=== PATIENT | female | born 1935 | race Caucasian/White ===

== ENCOUNTER 2022-02-08 08:54 | Outpatient (CLI) | payer MEDICARE, SELFPAY ==
--- NOTE | ~2022-02-08 | CT_ITS ---
EXAMINATION: CT chest abdomen pelvis w con DATE: 02/08/2022 14:15 CDT INDICATION: Lymphadenopathy. Bilateral axillary swelling. TECHNIQUE: Computed tomography (CT) of the chest, abdomen, and pelvis was performed with 100 cc Omnip aque 350 intravenous contrast. The dose-length product was 306.19 mGy-cm. Automated exposure control and iterative reconstruction technique were employed. COMPARISON: None FINDINGS: CHEST CT: There is bilateral supraclavicular lymphadenopathy. There is extensive bilateral axillary lymphadenop athy. There is mediastinal and right hilar lymphadenopathy. No significant pleural or pericardial eff usion. No focal airspace consolidation. Mild emphysema. No endobronchial lesions. No pneumothorax. Ca lcified granuloma is are present in the left upper lobe, consistent with chronic granulomatous diseas e. There is a 2 mm right middle lobe nodule, likely benign. No focal airspace consolidation. No endob ronchial lesions. ABDOMEN/PELVIS CT: There is hepatomegaly. There is a small low-density lesion in the left hepatic lobe measuring 12 mm, compatible with a cyst. There are smaller low-density lesions in the liver, also likely cysts. The sp mitra, pancreas, left adrenal gland is unremarkable. There is lymphadenopathy in the portal caval, per iaortic and mesenteric locations. There is extensive pelvic and inguinal. There is atherosclerosis of the aorta without aneurysm. There are gallstones. Moderate colonic fecal loading. There is a mild co mpression deformity of T4, likely chronic. Moderate lumbar spondylosis. No focal lytic or blastic les ions. Lymphadenopathy IMPRESSION: 1. Extensive lymphadenopathy of the neck, chest, abdomen and pelvis, suspicious for lymphoma. 2: Hepatomegaly. 3: Cholelithiasis. Reviewed, dictated and finalized at location A.
== END 2022-02-08 08:55 | disposition home or self-care (01) ==
PROVIDERS: PCP Physician Assistant Medical; Visit Provider Physician Assistant Medical
DX: R59.0 Localized enlarged lymph nodes (principal); K80.20 Calculus of gallbladder without cholecystitis without obstruction; R16.0 Hepatomegaly, not elsewhere classified
CPT/HCPCS: 71260; 74177; Q9967

== ENCOUNTER 2022-02-19 09:30 | Outpatient (CLI) | payer MEDICARE, SELFPAY | END 2022-02-19 09:31 | disposition home or self-care (01) | LOC: ANHLAB 09:32 | PROVIDERS: PCP Physician Assistant Medical; Visit Provider Internal Medicine Hematology & Oncology | DX: C85.98 Non-Hodgkin lymphoma, unspecified, lymph nodes of multiple sites (principal) | CPT/HCPCS: 88184; 88185 ==

== ENCOUNTER 2022-03-07 12:46 | Outpatient (CLI) | payer MEDICARE, SELFPAY | END 2022-03-07 12:47 | disposition home or self-care (01) | LOC: ANHLAB 12:47 | PROVIDERS: PCP Physician Assistant Medical; Visit Provider Internal Medicine Hematology & Oncology | DX: C83.00 Small cell B-cell lymphoma, unspecified site (principal); Z13.79 Encounter for other screening for genetic and chromosomal anomalies | CPT/HCPCS: 88184 ==

== ENCOUNTER 2022-03-28 08:45 | Outpatient (CLI) | payer MEDICARE, SELFPAY ==
[2022-03-28 08:55] LABS: Basophils Absolute Auto 0.1 K/mm3 (0.0-0.1); Basophils Percent Auto 0.9 % (0.2-1.2); Eosinophils Absolute Auto 0.2 K/mm3 (0-0.3); Eosinophils Percent Auto 2.5 % (0-4.4); Hematocrit 42.8 % (37.0-47.0); Hemoglobin 13.9 g/dL (12.0-15.0); Immature Granulocyte Absolute 0.02 K/mm3 (0.00-0.031); Immature Granulocyte Percent A 0.2 % (0-0.5); Lymphocytes Absolute Auto 4.92 K/mm3 (0.9-3.2); Lymphocytes Percent Auto 54.9 % (18.3-44.2); Mean Corpuscular HGB Conc 32.5 g/dl (32-36); Mean Corpuscular Hemoglobin 32.3 pg (26-34); Mean Corpuscular Volume 99.3 fl (80-100); Mean Platelet Volume 9.2 fl (7.4-10.4); Monocytes Absolute Auto 0.4 K/mm3 (0.1-0.6); Monocytes Percent Auto 4.1 % (2.6-8.5); Neutrophils Absolute Auto 3.4 K/mm3 (1.3-6.7); Neutrophils Percent Auto 37.4 % (45.5-73.1); Platelet Count Result 274 k/mm3 (150-375); Red Blood Count 4.31 M/mm3 (4.2-5.4); Red Cell Distribution Width 15.2 % (11.5-14.5)
[2022-03-28 08:58] LABS: Blood Urea Nitrogen 16 mg/dL (8-26); Carbon Dioxide 31 mmol/L (22-30); Chloride 97 mmol/L (98-109); Estimated Glomerular Filt Rate 43; Glucose 145 mg/dL (70-105); Ionized Calcium (POC) 1.22 mmol/L (1.11-1.31); Potassium 3.7 mmol/L (3.5-4.9); Sodium 140 mmol/L (138-146)
[2022-03-28 08:59] LABS: Atypical Lymphocytes Present; Platelet Estimate Adequate (Adequate); Schistocytes None Seen (NORMAL)
== END 2022-03-28 08:46 | disposition home or self-care (01) ==
LOC: ANHLAB 08:46
PROVIDERS: PCP Physician Assistant Medical; Visit Provider Internal Medicine Hematology & Oncology
DX: C83.00 Small cell B-cell lymphoma, unspecified site (principal)
CPT/HCPCS: 36415; 80047; 85025

== ENCOUNTER 2022-04-25 08:26 | Outpatient (CLI) | payer MEDICARE, SELFPAY ==
[2022-04-25 08:55] LABS: Basophils Absolute Auto 0.1 K/mm3 (0.0-0.1); Basophils Percent Auto 1.1 % (0.2-1.2); Eosinophils Absolute Auto 0.2 K/mm3 (0-0.3); Eosinophils Percent Auto 1.9 % (0-4.4); Hematocrit 43.9 % (37.0-47.0); Hemoglobin 14.2 g/dL (12.0-15.0); Immature Granulocyte Absolute 0.12 K/mm3 (0.00-0.031); Immature Granulocyte Percent A 1.2 % (0-0.5); Lymphocytes Absolute Auto 2.08 K/mm3 (0.9-3.2); Lymphocytes Percent Auto 21.1 % (18.3-44.2); Mean Corpuscular HGB Conc 32.3 g/dl (32-36); Mean Corpuscular Hemoglobin 31.8 pg (26-34); Mean Corpuscular Volume 98.2 fl (80-100); Mean Platelet Volume 9.4 fl (7.4-10.4); Monocytes Absolute Auto 1.2 K/mm3 (0.1-0.6); Monocytes Percent Auto 11.7 % (2.6-8.5); Neutrophils Absolute Auto 6.2 K/mm3 (1.3-6.7); Platelet Count Result 392 k/mm3 (150-375); Red Blood Count 4.47 M/mm3 (4.2-5.4); Red Cell Distribution Width 15.3 % (11.5-14.5); White Blood Count 9.9 K/mm3 (4.5-10.0)
[2022-04-25 09:00] LABS: Blood Urea Nitrogen 20 mg/dL (8-26); Carbon Dioxide 34 mmol/L (22-30); Chloride 95 mmol/L (98-109); Estimated Glomerular Filt Rate 39; Glucose 119 mg/dL (70-105); Ionized Calcium (POC) 1.36 mmol/L (1.11-1.31); Potassium 3.8 mmol/L (3.5-4.9); Sodium 138 mmol/L (138-146)
[2022-04-25 11:26] LABS: Alanine Aminotransferase 15 U/L (6-35); Albumin Level 3.9 g/dL (3.5-5.1); Alkaline Phosphatase 60 U/L (38-126); Anion Gap 7 mmol/L (8-16); Aspartate Amino Transferase 21 U/L (14-36); Bilirubin,Total 0.4 mg/dL (0.2-1.3); Blood Urea Nitrogen 20 mg/dL (7-17); Calcium 9.9 mg/dL (8.4-10.2); Carbon Dioxide 34 mmol/L (22-30); Chloride 97 mmol/L (98-107); Estimated Glomerular Filt Rate 43; Glucose 114 mg/dL (65-110); Lactate Dehydrogenase 167 U/L (120-246); Potassium 3.8 mmol/L (3.4-5.0); Sodium 138 mmol/L (137-145)
== END 2022-04-25 08:27 | disposition home or self-care (01) ==
PROVIDERS: PCP Physician Assistant Medical; Visit Provider Internal Medicine Hematology & Oncology
DX: C85.98 Non-Hodgkin lymphoma, unspecified, lymph nodes of multiple sites (principal)
CPT/HCPCS: 36415; 80047; 80053; 83615; 85025

== ENCOUNTER 2022-05-30 14:55 | Outpatient (CLI) | payer MEDICARE, SELFPAY ==
[2022-05-30 15:06] LABS: Basophils Absolute Auto 0.1 K/mm3 (0.0-0.1); Basophils Percent Auto 0.8 % (0.2-1.2); Eosinophils Absolute Auto 0.2 K/mm3 (0-0.3); Eosinophils Percent Auto 1.6 % (0-4.4); Hematocrit 48.7 % (37.0-47.0); Hemoglobin 15.3 g/dL (12.0-15.0); Immature Granulocyte Absolute 0.14 K/mm3 (0.00-0.031); Immature Granulocyte Percent A 1.3 % (0-0.5); Lymphocytes Absolute Auto 2.82 K/mm3 (0.9-3.2); Lymphocytes Percent Auto 26.1 % (18.3-44.2); Mean Corpuscular HGB Conc 31.4 g/dl (32-36); Mean Corpuscular Volume 98.6 fl (80-100); Mean Platelet Volume 9.3 fl (7.4-10.4); Monocytes Absolute Auto 1.1 K/mm3 (0.1-0.6); Monocytes Percent Auto 9.9 % (2.6-8.5); Neutrophils Absolute Auto 6.5 K/mm3 (1.3-6.7); Neutrophils Percent Auto 60.3 % (45.5-73.1); Nucleated Red Blood Cells Absolute Auto 0.1 K/mm3 (0.0-0.012); Nucleated Red Blood Cells Perc 0.6 % (0.0-0.2); Platelet Count Result 404 k/mm3 (150-375); Red Blood Count 4.94 M/mm3 (4.2-5.4); Red Cell Distribution Width 16.9 % (11.5-14.5); White Blood Count 10.8 K/mm3 (4.5-10.0)
[2022-05-30 15:11] LABS: Blood Urea Nitrogen 28 mg/dL (8-26); Carbon Dioxide 36 mmol/L (22-30); Chloride 95 mmol/L (98-109); Estimated Glomerular Filt Rate 33; Glucose 89 mg/dL (70-105); Ionized Calcium (POC) 1.21 mmol/L (1.11-1.31); Potassium 4.7 mmol/L (3.5-4.9); Sodium 136 mmol/L (138-146)
== END 2022-05-30 14:56 | disposition home or self-care (01) ==
LOC: ANHLAB 14:56
PROVIDERS: PCP Physician Assistant Medical; Visit Provider Internal Medicine Hematology & Oncology
DX: C83.00 Small cell B-cell lymphoma, unspecified site (principal)
CPT/HCPCS: 36415; 80047; 85025

== ENCOUNTER 2022-05-30 15:30 | Inpatient (IN) | payer MEDICARE, SELFPAY ==
[2022-05-30] VITALS (15 sets, daily range): BP systolic 120–145; BP diastolic 64–90; PULSE 63–83; RESP 16–25; TEMP 36–36.9; O2SAT 87–97
--- NOTE | ~2022-05-30 | XR_ITS ---
XR chest 1V portable 05/31/2022 16:10 Indication: CHF. Dyspnea. Procedure: AP portable chest Comparison: 02/02/2022 Findings: Cardiomegaly with mild interstitial edema. There is left basilar atelectasis. Small pleural effusions. No pneumothorax. The lungs are hyperinflated which is consistent with, but not diagnostic of chronic obstructive pulmonary disease. Generalized osteopenia. No acute osseous abnormality. Impression: 1: Cardiomegaly with mild interstitial edema. 2: Small pleural effusions. 3: Left lower lobe atelectasis. Reviewed, dictated and finalized at location A. ER WORKER POWER UNIT OPERATOR Impression: 1: Cardiomegaly with mild interstitial edema. 2: Small pleural effusions. 3: Left lower lobe atelectasis.
--- NOTE | ~2022-05-30 | CT_ITS ---
EXAMINATION: CTA chest PE protocol DATE: 05/30/2022 16:51 INDICATION: Hypoxia. TECHNIQUE: Computed tomography angiography (CTA) of the chest was performed with 100 mL Omnipaque-350 intravenous contrast timed to evaluate the pulmonary arteries. Coronal maximum intensity projection 3D-reconstructions were created by the technologist. Automated exposure control and iterative reconst ruction technique were employed. The dose-length product was 183.20 mGy-cm. COMPARISON: Chest CT 02/08/2022 FINDINGS: There is mild emphysema. There is mild atelectasis bilaterally. A calcified left lung nodul e and calcified left hilar and mediastinal lymph nodes are consistent with old granulomatous disease. There are trace pleural effusions. The heart size is normal. There are calcifications of the coronar y arteries and aortic valve. No pericardial effusion. There is no pulmonary embolus. There is bilater al axillary lymphadenopathy. The largest right axillary node measures 4.1 x 1.8 cm, improved from 6.9 x 3.2 cm. There is bilateral supraclavicular lymphadenopathy. There is mediastinal lymphadenopathy. There is moderate thoracic spondylosis. There is a chronic compression fracture of T4. IMPRESSION: 1. No pulmonary embolus. 2. Chest lymphadenopathy with improvement from 02/08/2022, consistent with lymphoma. 3. Mild emphysema. Reviewed, dictated and finalized at location A. CART REPAIRER IMPRESSION: 1. No pulmonary embolus. 2. Chest lymphadenopathy with improvement from 02/08/2022, consistent with lymph paulina. 3. Mild emphysema.
--- NOTE | 2022-05-30 16:01 | ECG_ITS ---
Measurements Intervals [place] Rate: 63 P: 69 UT: 169 QRS: -20 QRSD: 78 T: 19 QT: 379 QTc: 388 Interpretive Statements SINUS RHYTHM LOW QRS VOLTAGE IN LIMB LEADS CANNOT RULE OUT SEPTAL INFARCT, AGE INDETERMINATE INFERIOR INFARCT, AGE INDETERMINATE ABNORMAL ECG NO PREVIOUS ECG AVAILABLE FOR COMPARISON Electronically Signed On 05-30-2022 19:18:13 SUPPLY CHAIN DIRECTOR by Johnnie Hughes D.O.
--- NOTE | 2022-05-30 16:02 | ED.SOB ---
HPI - SOB/Dyspnea General Chief Complaint: Shortness of Breath/Dyspnea Stated Complaint: dyspnea Time Seen by Provider: 05/30/22 15:55 History of Present Illness HPI Narrative: Patient is an 87-year-old female with a history of lymphoma presenting with hypoxia. Patient's daughter states that the patient has been increasingly fatigued lately and short of breath. She went into her oncologist's office for a checkup today and they checked her vitals and found her pulse ox to be 45% so they sent her to the ER. On arrival, patient is on nonrebreather with saturations in the upper 90s. Patient denies complaints. She denies chest pain, lightheadedness, cough, fevers, abdominal pain, vomiting, diarrhea, leg swelling. Related Data Home Medications Medication Instructions Recorded Confirmed visiclear 1 tab-cap BYMOUTH DAILY 02/02/22 05/30/22 zanubrutinib 80 mg capsule 160 mg PO BID 05/30/22 05/30/22 (Brukinsa) Allergies Allergy/AdvReac Type Severity Reaction Status Date / Time No Known Allergies Allergy Verified 05/30/22 18:52 Review of Systems Review of Systems: All systems reviewed & are unremarkable except as noted in HPI and below PMFSH Past Medical History Medical History Macular degeneration Non-Hodgkin's lymphoma Trisomy 12 Surgical History Surgical History H/O tubal ligation History of appendectomy S/P ORIF (open reduction internal fixation) fracture left wrist Family History Family History Mother Carcinoma of colon Father Cancer Sibling Cancer Social History Social History Social History: She is and has 4 children. jorge schroeder is her daughter who has the durable power deputy attorney general for healthcare. 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 She occasionally has a glass a wine. Code status full code Smoking status: Never smoker Tobacco type: cigarettes Alcohol intake: never Alcohol use details: social - special event Substance use: never Lack of Transportation: No Lack of Food: Never True Current Housing: I Have Housing Concerned About Future Housing: No Difficulty Paying Gas/Electric Bills: No Difficulty Paying for Meds: No Currently Unemployed: No Education: Trade/Vocational Certificate Difficulty w/ Childcare or Family Care: No Living arrangements: alone Occupation/Education: retired Gender identity (if verbalized by the patient): Female Spiritual care concerns: No Exam Narrative: GENERAL: Well-appearing, well-nourished, and in no acute distress. HEAD: Normocephalic, atraumatic. EYES: PERRLA and EOMI. ENT: Nares clear, no rhinorrhea or epistaxis. Mucous membranes moist. NECK: Supple. CHEST: Diminished breath sounds bilaterally, no crackles or wheezing HEART: Regular rate and rhythm. No murmur heard. Normal peripheral pulses. ABDOMEN: Soft, nontender, nondistended, normal active bowel sounds. EXTREMITIES: Normal range of motion. No edema. SKIN: Warm, dry, no rash. NEURO: No focal deficits. Alert and oriented x3. PSYCH: Normal mood and affect. Course Vital Signs Vital signs: Vital Signs Temperature 97.2 F L 05/30/22 15:54 Pulse Rate 66 05/30/22 15:54 Respiratory Rate 16 05/30/22 15:54 Blood Pressure 138/90 05/30/22 15:54 Oxygen Delivery Room Air 05/30/22 15:54 Temperature 98.0 F 05/31/22 21:17 Pulse Rate 75 05/31/22 21:17 Respiratory Rate 17 05/31/22 21:17 Blood Pressure 105/46 L 05/31/22 21:17 Pulse Oximetry 92 05/31/22 21:17 Oxygen Delivery Nasal Cannula 05/31/22 19:48 Oxygen Flow Rate 6 05/31/22 19:48 MDM - SOB/Dyspnea MDM Narrative Medical decision making narrative: Patient is a
[2022-05-30 16:17] LABS: Alveolar/Arterial O2 Gradient 36.1 mmHg; Base Excess ABG 5.8 mEq/l (+/-2.0); Carboxyhemoglobin 3.7 % THb (0-2.0); Fractional Inspired Oxygen 21 %; HCO3 ABG 33.8 mEq/l (22.0-26.0); Methemoglobin ABG 0.5 %THb (0-1.5); Oxygen Content ABG 14.6 %vol (16.0-22.0); PO2 FiO2 Ratio Arterial Blood 1.83 %; Total Hemoglobin 15.8 g/dL (12.0-18.0); pH ABG 7.349 (7.350-7.450)
[2022-05-30 16:20] LABS: Basophils Absolute Auto 0.1 K/mm3 (0.0-0.1); Basophils Percent Auto 0.9 % (0.2-1.2); Eosinophils Absolute Auto 0.1 K/mm3 (0-0.3); Eosinophils Percent Auto 1.2 % (0-4.4); Hematocrit 48.4 % (37.0-47.0); Hemoglobin 15.2 g/dL (12.0-15.0); Immature Granulocyte Absolute 0.14 K/mm3 (0.00-0.031); Immature Granulocyte Percent A 1.2 % (0-0.5); Lymphocytes Absolute Auto 2.61 K/mm3 (0.9-3.2); Lymphocytes Percent Auto 22.8 % (18.3-44.2); Mean Corpuscular HGB Conc 31.4 g/dl (32-36); Mean Corpuscular Hemoglobin 31.3 pg (26-34); Mean Corpuscular Volume 99.8 fl (80-100); Mean Platelet Volume 9.4 fl (7.4-10.4); Monocytes Absolute Auto 1.1 K/mm3 (0.1-0.6); Monocytes Percent Auto 9.4 % (2.6-8.5); Neutrophils Absolute Auto 7.4 K/mm3 (1.3-6.7); Neutrophils Percent Auto 64.5 % (45.5-73.1); Nucleated Red Blood Cells Absolute Auto 0.1 K/mm3 (0.0-0.012); Nucleated Red Blood Cells Perc 0.6 % (0.0-0.2); Platelet Count Result 408 k/mm3 (150-375); Red Blood Count 4.85 M/mm3 (4.2-5.4); Red Cell Distribution Width 17.3 % (11.5-14.5); White Blood Count 11.4 K/mm3 (4.5-10.0)
[2022-05-30 16:21] LABS: PCO2 ABG 62.8 mmHg (35.0-45.0)
[2022-05-30 16:22] LABS: PO2 ABG 38.4 mmHg (80.0-100.0)
[2022-05-30 16:23] LABS: Oxygen Saturation ABG 68.4 % (95.0-100.0)
[2022-05-30 16:24] LABS: Oxyhemoglobin 65.8 % THb (90.0-100.0); Site Drawn LEFT BRACHIAL
[2022-05-30 16:25] LABS: Device ROOM AIR
[2022-05-30 16:30] LABS: Alanine Aminotransferase 20 U/L (6-35); Albumin Level 3.8 g/dL (3.5-5.1); Alkaline Phosphatase 79 U/L (38-126); Anion Gap 2 mmol/L (8-16); Aspartate Amino Transferase 29 U/L (14-36); Bilirubin,Total 0.5 mg/dL (0.2-1.3); Blood Urea Nitrogen 28 mg/dL (7-17); Calcium 9.5 mg/dL (8.4-10.2); Carbon Dioxide 37 mmol/L (22-30); Chloride 93 mmol/L (98-107); Estimated CRCL calculation 24 ml/min; Estimated Glomerular Filt Rate 43; Glucose 96 mg/dL (65-110); Potassium 4.7 mmol/L (3.4-5.0); Sodium 132 mmol/L (137-145)
[2022-05-30 16:48] LABS: Lactic Acid Reflex 1.1 mmol/L (0.7-2.0)
[2022-05-30 16:50] LABS: Prothrombin Time 12.6 Seconds (11.1-14.7)
[2022-05-30 16:51] LABS: Partial Thromboplastin Time 30.5 SECONDS (22.3-36.8)
[2022-05-30] MEDS: SODIUM CHLORIDE 0.9% IV 1,000 ML 999 ML IV CONT (16:57)
[2022-05-30 17:02] LABS: NT Pro B Type Natriuretic Pept 4280 pg/mL (19.9-100); Troponin I 0.013 ng/mL (0.000-0.034)
[2022-05-30 17:08] LABS: Influenza A QL RT-PCR Negative (Negative); Influenza B QL RT-PCR Negative (Negative); RSV RNA, RT-PCR Negative (Negative); SARS-CoV-2 RNA PCR Negative
[2022-05-30] MEDS: IPRATROPIUM BR 0.02% INH SOLN 0.5 MG/2.5 ML VIAL INHALATION ×2 (17:31→20:27)
[2022-05-30] MEDS: ALBUTEROL SULFATE NEB 2.5 MG/3 ML INH 5 MG INHALATION ×2 (17:31→20:27)
--- NOTE | 2022-05-30 17:55 | PM.IMHP ---
H&P: HPI History of Present Illness Date/Time: 05/30/22 17:55 Chief Complaint: Hypoxic Narrative: This is an 87-year-old female patient who has a history of lymphoma. She is seeing Dr. hammonds for non-Hodgkin's lymphoma of lymph nodes of multiple regions. The patient is being treated with oral medications. The patient was at her provider's office today and her O2 saturations were very low around 45%. However the patient was not cyanotic and was not in any distress. Patient was awake and talking. The patient does not wear home oxygen. The patient's white count was 11.4. H&H is 15.2 and 48.4. ABGs pH 7.349 CO2 was 62.8 PO2 38.4. O2 saturation was read as 68.4. Sodium 132. Creatinine 1.2 which is improved from her last level of 1.5. BNP 4280. Patient was negative for influenza a B RSV and COVID. Chest CTA was read as no pulmonary embolus. Chest lymphadenopathy with improvement from 02/08/2022 consistent with lymphoma. Mild emphysema. The patient was placed on oxygen in the emergency room and given neb treatments and IV fluids. Patient is being admitted to observation status on the date of service 05/30/2022 Review of Systems Review of Systems: See HPI All systems reviewed & are unremarkable except as noted in HPI and below Constitutional: Constitutional: Reports as per HPI and Reports no additional constitutional complaints Eyes: Eyes: Reports as per HPI and Reports no additional eye complaints ENT: Reports system reviewed and no additional complaints, except as documented and Reports Normal hearing present Cardiovascular: Cardiovascular: Reports no additional cardiovascular complaints Respiratory: Respiratory: Reports no additional respiratory complaints and Reports no additional respiratory complaints Gastrointestinal: Gastrointestinal: Reports as per HPI and Reports no additional gastrointestinal complaints Musculoskeletal: Musculoskeletal: Reports no additional musculoskeletal complaints Integumentary/Breasts: Skin/Breast: Reports system reviewed and no additional complaints, except as docu and Reports as per HPI Neurologic: Reports system reviewed and no additional complaints, except as documented, Reports as per HPI and Reports Normal hearing present Psychiatric: Psychiatric: Reports no additional psychiatric complaints and Reports as per HPI Endocrine: Endocrine: Reports no additional endocrine complaints Hematologic/Lymphatic: Hematologic/Lymphatic: Reports no additional hematologic/lymphatic complaints Allergic/Immunologic: Allergic/Immunologic: Reports no additional allergic/immunologic complaints [facility] Past Medical History Medical History (Updated 05/30/22 @ 20:16 by Henna Sanches NP) Macular degeneration Non-Hodgkin's lymphoma Trisomy 12 Surgical History Surgical History (Updated 05/30/22 @ 17:58 by Henna Sanches NP) H/O tubal ligation History of appendectomy S/P ORIF (open reduction internal fixation) fracture left wrist Family History Family History (Updated 05/30/22 @ 17:59 by Henna Sanches NP) Mother Carcinoma of colon Father Cancer Sibling Cancer Social History Social History (Updated 05/30/22 @ 20:18 by Henna Sanches NP) Social History: She is and has 4 children. jorge schroeder is her daughter who has the durable power director of institutional giving for healthcare. 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 She occasionally has a glass a wine. Code status full code Smoking status: Never smoker Tobacco type: cigarettes Alcohol intake: never Alcohol use details: social - special event Substance use: never Lack of Transportation: No Lack of Food: Never True Current Housing: I Have Housing Concerned About Future Housing: No Difficulty Paying Gas/Electric Bills: No Difficulty Paying for Meds: No Currently Unemployed: No Education: Trade/Vocational Certificate Diffi
--- NOTE | 2022-05-30 18:33 | ADMGEN ---
This patient, Cindy Estrada, was admitted to Medical Room 247-. Patient/family oriented to hospital policies and general routines including ID bracelet, bed and alarms, visiting hours, pain management, procedures, bathroom and other care routines, personal items, smoking policy, room service/diet, and visiting hours. Information on how to activate the Rapid Response Team has been discussed. Patient/Family are encouraged to report perceived risks to care and to ask questions if they do not understand what they are told or what they should do.
[2022-05-30 20:05] LABS: Troponin I < 0.012 ng/mL (0.000-0.034)
--- NOTE | 2022-05-30 21:06 | PHAR ---
DRUG NAME: FREDDIE INGREDIENTS: ZANUBRUTINIB -- 80 MG RELATED DOCUMENTS: DRUGDEX EVALUATIONS - ZANUBRUTINIB COLOR: WHITE SHAPE: CAPSULE-SHAPE IMPRINT: ZANU 80 FORM: ORAL CAPSULE
[2022-05-30] MEDS: FUROSEMIDE INJ 40 MG/4 ML VIAL 20 MG IV PUSH (22:14)
[2022-05-30 22:21] LABS: Troponin I < 0.012 ng/mL (0.000-0.034)
[2022-05-30] MEDS: methylPREDNISolone SOD SUCC 125 MG VIAL 60 MG IV PUSH (23:31)
[2022-05-31] VITALS (18 sets, daily range): BP systolic 100–110; BP diastolic 46–58; PULSE 63–82; RESP 17–20; TEMP 36–37; O2SAT 90–94
--- NOTE | 2022-05-31 | ECHO_ITS ---
Patient Info Name: Cindy Estrada Age: 87 years : 1935 Gender: Female Ht: 62 in Wt: 141 lbs BSA: 1.69 m2 HR: 83 bpm BP: 100 / 58 mmHg Technical Quality: Good Exam Date: 05/31/2022 10:12 AM Exam Location: [facility] Pulmonary Patient Status: Inpatient Admit Date: 05/30/2022 Staff Ordering Physician: Henna Sanches NP Buttermilk Drier Operator: [facility], ZAINAB, RT Attending Provider: Milad Godoy MD Referring Physician: Verónica ALVARADO; Exam Type: CA echo doppler color flow Study Info Indications R60.0 - Localized edema Complete two-dimensional, color flow and Doppler transthoracic echocardiogram is performed. Summary 1. Complete two-dimensional, color flow and Doppler transthoracic echocardiogram is performed. 2. Left ventricular chamber dimension is normal. 3. Left ventricular systolic function is normal, estimated at 65-70%. 4. The left ventricular diastolic function is grade I diastolic dysfunction. 5. E/e' 12 is mildly elevated. 6. Global longitudinal strain is normal at -22.3%. 7. There is moderate aortic valve sclerosis. 8. There is mild aortic valve stenosis with a peak velocity of 203 cm/s, mean gradient of 8 mmHg, and aortic valve area of 2.0 cm2. 9. Dilated inferior vena cava with >50% collapse upon inspiration consistent with elevated right atrial pressure, 10 mmHg. Left Ventricle E/e' 12 is mildly elevated. Global longitudinal strain is normal at -22.3%. Left ventricular chamber dimension is normal. Left ventricular systolic function is normal, estimated at 65-70%. The left ventricular diastolic function is grade I diastolic dysfunction. Right Ventricle Right ventricular systolic function is normal and with normal TAPSE 2.5 cm. Right ventricular chamber dimension is normal. Left Atria Left atrial chamber dimension is normal. Right Atria Right atrial chamber dimension is normal. Aortic Valve The aortic valve is probable trileaflet. There is moderate aortic valve sclerosis. There is mild aortic valve stenosis with a peak velocity of 203 cm/s, mean gradient of 8 mmHg, and aortic valve area of 2.0 cm2. There is no aortic valve regurgitation. Pulmonic Valve There is no pulmonic regurgitation. Mitral Valve There is no mitral valve stenosis. There is no mitral valve regurgitation. Tricuspid Valve There is no tricuspid valve regurgitation. Pericardium/Pleural There is no pericardial effusion. Inferior Vena Cava Dilated inferior vena cava with >50% collapse upon inspiration consistent with elevated right atrial pressure, 10 mmHg. Aorta The aortic root size at the sinus of Valsalva is normal. Left Ventricular Outflow Tract Name Value Normal LVOT 2D LVOT Diameter 1.9 cm LVOT Doppler LVOT Peak Gradient 7 mmHg LVOT Mean Gradient 4 mmHg LVOT VTI 31 cm LVOT VTI/AV VTI Ratio 0.7 LVOT Stroke Volume 87 ml LVOT CO 6.3 l/min LVOT CI 3.7 l/min/m2
--- NOTE | 2022-05-31 01:25 | PC.NURSE ---
Pt with o2 sat 89% on 4L at 1930. Changed fingers, still low Increased to 5L Notified hospitalist Henna. Gave lasix 20 IVP, RT gave neb. Pt couldnt void on bedpan. Bladder scanner 244ml. Then up to BSC voided 300ml. HOB elevated No shortness of breath during this time 5L NC 93%
[2022-05-31] MEDS: ALBUTEROL SULFATE NEB 2.5 MG/3 ML INH INHALATION ×4 (02:11→19:48)
[2022-05-31] MEDS: IPRATROPIUM BR 0.02% INH SOLN 0.5 MG/2.5 ML VIAL INHALATION ×4 (02:11→19:48)
[2022-05-31 05:31] LABS: Basophils Absolute Auto 0.1 K/mm3 (0.0-0.1); Basophils Percent Auto 0.7 % (0.2-1.2); Eosinophils Percent Auto 0.3 % (0-4.4); Hematocrit 43.9 % (37.0-47.0); Hemoglobin 13.8 g/dL (12.0-15.0); Immature Granulocyte Absolute 0.14 K/mm3 (0.00-0.031); Immature Granulocyte Percent A 1.5 % (0-0.5); Lymphocytes Absolute Auto 0.75 K/mm3 (0.9-3.2); Lymphocytes Percent Auto 7.8 % (18.3-44.2); Mean Corpuscular HGB Conc 31.4 g/dl (32-36); Mean Corpuscular Hemoglobin 31.4 pg (26-34); Mean Corpuscular Volume 99.8 fl (80-100); Mean Platelet Volume 9.6 fl (7.4-10.4); Monocytes Absolute Auto 0.3 K/mm3 (0.1-0.6); Monocytes Percent Auto 2.9 % (2.6-8.5); Neutrophils Absolute Auto 8.4 K/mm3 (1.3-6.7); Neutrophils Percent Auto 86.8 % (45.5-73.1); Nucleated Red Blood Cells Perc 0.3 % (0.0-0.2); Platelet Count Result 343 k/mm3 (150-375); White Blood Count 9.6 K/mm3 (4.5-10.0)
[2022-05-31 05:51] LABS: Alanine Aminotransferase 21 U/L (6-35); Alkaline Phosphatase 70 U/L (38-126); Anion Gap 3 mmol/L (8-16); Aspartate Amino Transferase 29 U/L (14-36); Bilirubin,Total 0.4 mg/dL (0.2-1.3); Blood Urea Nitrogen 29 mg/dL (7-17); Carbon Dioxide 36 mmol/L (22-30); Chloride 97 mmol/L (98-107); Estimated CRCL calculation 24 ml/min; Estimated Glomerular Filt Rate 43; Glucose 129 mg/dL (65-110); Magnesium 1.9 mg/dL (1.6-2.3); Potassium 4.7 mmol/L (3.4-5.0); Sodium 136 mmol/L (137-145)
[2022-05-31] MEDS: methylPREDNISolone SOD SUCC 125 MG VIAL 60 MG IV PUSH ×3 (06:48→18:08)
[2022-05-31] MEDS: LEVOTHYROXINE SODIUM 100 MCG TABLET PO (06:48)
[2022-05-31 07:12] LABS: Free T4 Free Thyroxine Reflex 0.53 ng/dL (0.78-2.19)
[2022-05-31] MEDS: ENOXAPARIN 40 MG/0.4 ML SYRINGE SUB-Q (09:15)
--- NOTE | 2022-05-31 12:52 | PDONCCN ---
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 She came into the office yesterday with follow-up visit and was having some shortness of breath without any chest pain. Her order set was found to be in 50s in the office. She was sent to the ER. She denies any fevers and chills. She denies any history of COPD. She was not using any home oxygen. She denies any leg pain and swelling. CTA chest was done in the ER chest showed no evidence of pulmonary embolism. There was chest lymphadenopathy with improvement and mild emphysema. Review of Systems - Review of Systems All systems reviewed & are unremarkable except as noted in HPI and bel - Neurologic Reports system reviewed and no additional complaints, except as documented, Reports hearing normal [facility] Medical History: Medical History (Last Reviewed 05/30/22 @ 21:33 by Oly Ayala MD) Macular degeneration Non-Hodgkin's lymphoma Trisomy 12 Surgical History: Surgical History (Last Reviewed 05/30/22 @ 21:33 by Oly Ayala MD) H/O tubal ligation History of appendectomy S/P ORIF (open reduction internal fixation) fracture left wrist Family History: Family History (Last Reviewed 05/30/22 @ 21:33 by Oly Ayala MD) Mother Carcinoma of colon Father Cancer Sibling Cancer - Social History Social History: Social History (Last Reviewed 05/30/22 @ 21:33 by Oly Ayala MD) Gender Identity: Gender identity (if verbalized by the patient): Female Alcohol Use: Alcohol intake: never Alcohol use details: social - special event Substance Use: Substance use: never Others: Spiritual care concerns: No Living Arrangements: Living arrangements: alone Oppucation/Education: Occupation/Education: retired Smoking Status: Smoking status: Never smoker Tobacco type: cigarettes Social Determinants of Health: Has the Lack of Transportation Kept You From Medical Appointments or From Getting Medications?: No Within the Past 12 Months, Were You Worried Whether Your Food Would Run Out Before You Got Money to Buy More?: Never True What is Your Housing Situation Today?: I Have Housing Are You Worried That in the Next 2 Months, You May Not Have Your Own Housing to Live In?: No Do You Have Trouble Paying Your Heating Or Electricity Bill?: No Do You Have Trouble Paying For Medicines?: No Are You Currently Unemployed and Looking for Work?: No Highest Level of Education Completed: Trade/Vocational Certific Do You Have Trouble With Childcare or the Care of a Family Member?: No Exam - Vital Signs Vital Signs - 24 hr 05/30/22 15:54 05/30/22 16:26 05/30/22 16:26 Temperature 36.2 C L Pulse Rate 66 73 Respiratory Rate 16 Blood Pressure 138/90 Pulse Oximetry 97 Oxygen Delivery Room Air Nasal Cannula Oxygen Flow Rate 4 05/30/22 16:33 05/30/22 17:32 05/30/22 17:45 Temperature Pulse Rate 68 66 Respiratory Rate 18 19 Blood Pressure Pulse Oximetry 97 Oxygen Delivery Nasal Cannula Oxygen Flow Rate 4 05/30/22 16:17 05/30/22 16:31 05/30/22 17:45 Temperature Pulse Rate 63 66 68 Respiratory Rate 16 17 25 H Blood Pressure 127/80 128/66 145/66 H Pulse Oximetry 94 96 96 Oxygen Delivery Oxygen Flow Rate 05/30/22 18:57 05/30/22 19:29 05/30/22 19:47 Temperature 36.9 C 36.0 C L Pulse Rate 76 73 Respiratory Rate 22 H 20 Blood Pressure 131/64 120/68 Pulse Oximetry 91 87 L Oxygen Delivery Oxygen Flow Rate 05/30/22
--- NOTE | 2022-05-31 13:15 | PM.IMPN ---
Progress Note: A&P Assessment and Plan (1) Emphysema lung: Code(s): J43.9 - Emphysema, unspecified Status: Acute Assessment and Plan: -the patient was started on Solu-Medrol -continue with nebulizer treatments -continue with oxygen to keep O2 saturations greater than 92%. -the patient was negative for influenza A/B RSV and COVID. -home O2 evaluation. 05/31/2022 interval history: patient with history of non-Hodgkin lymphoma presented with hypoxia etiology uncertain we have started the patient on Solu-Medrol and bronchodilator, CT scan of the chest showed improvement in chest lymphadenopathy compared to previous CT scan on 02/08, also patient has hypothyroid this may be related, as her TSH increased, will increase levothyroxine to 125 mcg from 100 mcg, will consult casino cage supervisor for further recommendation. (2) Non-Hodgkin's lymphoma: Code(s): C85.90 - Non-Hodgkin lymphoma, unspecified, unspecified site Status: Acute Assessment and Plan: -consult Dr. Schulz. -continue with her home medications that are non formulary and the family has brought them here for her to take and she may take her own. Continue with per brukinsmony that the patient will bring from home (3) Macular degeneration: Code(s): H35.30 - Unspecified macular degeneration Status: Acute Assessment and Plan: -continue with her visit clear and she may take her home dose. (4) Hypothyroidism: Code(s): E03.9 - Hypothyroidism, unspecified Status: Acute Assessment and Plan: -check thyroid level. - Continue with levothyroxine Subjective Date/time seen: 05/31/22 13:15 Chief Complaint: Hypoxic HPI-Narrative: This is an 87-year-old female patient who has a history of lymphoma.? She is seeing Dr. 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 The patient is being treated with oral medications.? The patient was at her provider's office today and her O2 saturations were very low around 45%.? However the patient was not cyanotic and was not in any distress.? Patient was awake and talking.? The patient does not wear home oxygen.? The patient's white count was 11.4.? H&H is 15.2 and 48.4.? ABGs pH 7.349 CO2 was 62.8 PO2 38.4.? O2 saturation was read as? 68.4.? Sodium 132.? Creatinine 1.2 which is improved from her last level of 1.5.? BNP 4280.? Patient was negative for influenza a B RSV and COVID.? Chest CTA was read as no pulmonary embolus.? Chest lymphadenopathy with improvement from 02/08/2022 consistent with lymphoma.? Mild emphysema.? The patient was placed on oxygen in the emergency room and given neb treatments and IV fluids.? Patient is being admitted to observation status on the date of service 05/30/2022 05/31/2022 interval history: patient with history of non-Hodgkin lymphoma presented with hypoxia etiology uncertain we have started the patient on Solu-Medrol and bronchodilator, CT scan of the chest showed improvement in chest lymphadenopathy compared to previous CT scan on 02/08, also patient has hypothyroid this may be related, as her TSH increased, will increase levothyroxine to 125 mcg from 100 mcg, will consult casino cage supervisor for further recommendation. Review of Systems Review of Systems: All systems reviewed & are unremarkable except as noted in HPI and below Exam Narrative: Patient is comfortable, NAD HEENT: eyes are clear and none icteric LUNGS: bilateral fair air entry with harsh breath sound, rhonchi and wheezing ABD: not distended Lower extremities: no edema SKIN: nonjaundiced Neuro: grossly intact. Objective Data Vital Signs Vital Signs: Vital Signs - 24 hr 05/30/22 15:54 05/30/22 16:26 05/30/22 16:26 Temperature 97.2 F L Pulse Rate 66 73 Respiratory Rate 16 Blood Pressure 138/90 Pulse Oximetry 97 Oxygen Delivery Room Air Nasal Cannula Oxygen Flow Rate 4 05/30/22 16:33 05/30/22 17:32 05/30/22 17:45 Temperature Pulse Rate
[2022-05-31] MEDS: LEVOTHYROXINE SODIUM 25 MCG TABLET PO (13:49)
--- NOTE | 2022-05-31 15:09 | PM.CNPUL ---
Assessment and Plan Assessment and plan (1) Emphysema lung: Code(s): J43.9 - Emphysema, unspecified Status: Acute Assessment and Plan: this 87-year-old female with several week history of weakness was hospitalized because of hypoxemia. Diagnostic studies have shown chronic hypercapnic respiratory failure, erythrocytosis, prominent pulmonary arteries on chest CT, elevated BNP. She had no evidence of pulmonary embolism. chest CT showed mild emphysema. The patient's clinical history in conjunction with diagnostic studies suggest hypoxemia and hypercapnic respiratory failure related to COPD. Plan: continue with current regimen consisting of IV steroids nebulized short-acting bronchodilators, DVT prophylaxis. Await echo report. Repeat ABGs/CXR. (2) Hypothyroidism: Code(s): E03.9 - Hypothyroidism, unspecified Status: Acute (3) Monoclonal B-cell lymphocytosis of undetermined significance: Code(s): D72.820 - Lymphocytosis (symptomatic) Status: Acute (4) Macular degeneration: Code(s): H35.30 - Unspecified macular degeneration Status: Acute (5) Hypoxemia: Code(s): R09.02 - Hypoxemia Status: Acute History of Present Illness History of Present Illness Consult date: 05/31/22 Chief complaint: hypoxia Narrative: This 87-year-old female was admitted to the hospital because of hypoxemia. The patient was diagnosed with lymphoma several months ago. Since February she has been on treatment with zanubrutinib? and has been followed by Dr. Phelps. patient did not have any a new respiratory symptoms but her daughter noticed some a increasing weakness over the the last 2-3 weeks. Upon questioning the patient denied having chest pain palpitations orthopnea hemoptysis night sweats or lower extremity edema. She stated that she has been weak lately and also had some dizziness. She was found to have severe hypoxemia at her oncologist office. Workup showed chronic hypercapnic respiratory failure, partially compensated. A chest CT showed mild emphysema, no pulmonary embolism. The patient is currently on treatment with IV steroids nebulized short-acting bronchodilators. Her BNP was elevated over 4000. She received 1 dose of IV Lasix. Currently the patient has no shortness of breath. she never had history of asthma. Patient has been a smoker for many years. No other exposure to inhalational agents at home or at work place. Review of Systems Review of Systems: Patient reports no weight changes. She has no chest pain. She has no orthopnea. She has had history of hypothyroidism. During this hospitalization, TSH was very elevated and her thyroid hormone replacement was adjusted. Patient has had cold intolerance over the last few months. She also has constipation. She has no history lower extremity edema. The remainder of the 12 point system review is negative FORMERLY [facility], [facility] Past Medical History Medical History Macular degeneration Non-Hodgkin's lymphoma Trisomy 12 Surgical History Surgical History H/O tubal ligation History of appendectomy S/P ORIF (open reduction internal fixation) fracture left wrist Family History Family History Mother Carcinoma of colon Father Cancer Sibling Cancer Social History Social History Social History: She is and has 4 children. jorge schroeder is her daughter who has the durable power staff attorney for healthcare. 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 She occasionally has a glass a wine. Code status full code Smoking status: Never smoker Tobacco type: cigarettes Alcohol intake: never Alcohol use details: social - special event S
[2022-06-01] VITALS (20 sets, daily range): BP systolic 111–121; BP diastolic 53–59; PULSE 61–95; RESP 16–20; TEMP 36.6–36.9; O2SAT 91–95
[2022-06-01] MEDS: methylPREDNISolone SOD SUCC 125 MG VIAL 60 MG IV PUSH ×3 (00:13→17:22)
[2022-06-01] MEDS: ALBUTEROL SULFATE NEB 2.5 MG/3 ML INH INHALATION ×4 (02:48→21:12)
[2022-06-01] MEDS: IPRATROPIUM BR 0.02% INH SOLN 0.5 MG/2.5 ML VIAL INHALATION ×4 (02:48→21:12)
[2022-06-01 06:09] LABS: Hematocrit 40.6 % (37.0-47.0); Hemoglobin 12.7 g/dL (12.0-15.0); Mean Corpuscular HGB Conc 31.3 g/dl (32-36); Mean Corpuscular Hemoglobin 30.1 pg (26-34); Mean Corpuscular Volume 96.2 fl (80-100); Mean Platelet Volume 9.7 fl (7.4-10.4); Platelet Count Result 327 k/mm3 (150-375); Red Blood Count 4.22 M/mm3 (4.2-5.4); Red Cell Distribution Width 16.8 % (11.5-14.5); White Blood Count 10.5 K/mm3 (4.5-10.0)
[2022-06-01 06:30] LABS: Anion Gap 3 mmol/L (8-16); Blood Urea Nitrogen 26 mg/dL (7-17); Calcium 8.3 mg/dL (8.4-10.2); Carbon Dioxide 34 mmol/L (22-30); Chloride 96 mmol/L (98-107); Estimated CRCL calculation 32 ml/min; Estimated Glomerular Filt Rate 60; Glucose 139 mg/dL (65-110); Magnesium 2.1 mg/dL (1.6-2.3); Potassium 4.7 mmol/L (3.4-5.0); Sodium 133 mmol/L (137-145)
[2022-06-01] MEDS: LEVOTHYROXINE SODIUM 125 MCG TABLET PO (06:49)
[2022-06-01] MEDS: ENOXAPARIN 40 MG/0.4 ML SYRINGE SUB-Q (08:31)
--- NOTE | 2022-06-01 09:21 | PM.PNPUL ---
Progress Note: A&P Assessment and Plan (1) Emphysema lung: Code(s): J43.9 - Emphysema, unspecified Status: Acute Assessment and Plan: 87-year-old female admitted to the hospital with a hypoxemia and hypercapnic respiratory failure related to a newly detected COPD. Patient has evidence of mild emphysema on chest CT. she has been stable on a current regimen of IV steroids nebulized short-acting bronchodilators. On physical exam lungs sounded better this a.m.. She continues to require relatively high FiO2. Was given Lasix 20 mg IV. Plan: continue with current regimen, have decreased IV steroids, out of bed to chair. Await Echo report. Anticipate DC home in 1-2 days. (2) Hypoxia: Code(s): R09.02 - Hypoxemia Status: Acute (3) Non-Hodgkin's lymphoma: Code(s): C85.90 - Non-Hodgkin lymphoma, unspecified, unspecified site Status: Acute (4) Monoclonal B-cell lymphocytosis of undetermined significance: Code(s): D72.820 - Lymphocytosis (symptomatic) Status: Acute (5) Hypothyroidism: Code(s): E03.9 - Hypothyroidism, unspecified Status: Acute Subjective Date/time seen: 06/01/22 09:21 Interval history: Doing a little better today. She has no new respiratory symptoms. Remaining on relatively high oxygen flow, 6 liters/minute. Review of Systems Review of Systems: All systems reviewed & are unremarkable except as noted in HPI and below ( HPI and below) Exam Narrative: GENERAL APPEARANCE: Well developed, well nourished, alert and cooperative, and appears to be in no acute distress while on supplemental oxygen SKIN: Inspection of the skin reveals no rashes, ulcerations or petechiae. HEENT: Sclerae anicteric and conjunctivae pink and moist. Extraocular movements were intact and pupils were equal, round, and reactive to light. The oral mucosa, hard and soft palate, tongue and posterior pharynx were normal. NECK: Supple. There was no thyroid enlargement, and no tenderness, or masses were felt. CHEST: Normal AP diameter and normal contour without any kyphoscoliosis. LUNGS: Auscultation of the lungs a few rhonchi and crackles at bases posteriorly, no wheezing. CARDIAC: There was a regular rate and rhythm without any murmurs ABDOMEN: Soft and nontender with normal bowel sounds. There was no organomegaly. LYMPH NODES: No lymphadenopathy was appreciated in the neck. EXTREMITIES: No cyanosis, clubbing or edema. NEUROLOGIC: Alert and oriented x 3. Normal affect. Objective Data Vital Signs Vital Signs: Vital Signs - 24 hr 05/31/22 09:40 05/31/22 09:40 05/31/22 09:53 Temperature Pulse Rate 66 72 Respiratory Rate 18 18 Blood Pressure Pulse Oximetry 90 Oxygen Delivery Nasal Cannula Oxygen Flow Rate 6 05/31/22 12:00 05/31/22 14:31 05/31/22 14:47 Temperature Pulse Rate 77 76 81 Respiratory Rate 18 18 Blood Pressure Pulse Oximetry Oxygen Delivery Oxygen Flow Rate 05/31/22 15:10 05/31/22 16:00 05/31/22 19:48 Temperature 37.0 C Pulse Rate 78 77 73 Respiratory Rate 18 20 Blood Pressure 110/53 L Pulse Oximetry 94 93 Oxygen Delivery Nasal Cannula Oxygen Flow Rate 6 05/31/22 19:48 05/31/22 20:03 05/31/22 21:17 Temperature 36.7 C Pulse Rate 73 82 75 Respiratory Rate 20 20 17 Blood Pressure 105/46 L Pulse Oximetry 92 Oxygen Delivery Oxygen Flow Rate 05/31/22 20:00 05/31/22 20:00 06/01/22 00:00 Temperature Pulse Rate 80 71 Respiratory Rate Blood Pressure Pulse Oximetry 92 Oxygen Delivery Nasal Cannula Oxygen Flow Rate 06/01/22 02:49 06/01/22 02:49 06/01/22 02:59 Temperature Pulse Rate 70 70 68 Respiratory Rate 20 20 20 Blood Pressure Pulse Oximetry 91 Oxygen Delivery Nasal Cannula Oxygen Flow Rate 06/01/22 05:29 06/01/22 04:00 06/01/22 08:04 Temperature 36.9 C Pulse Rate 80 75 61 Respiratory Rate 18 Blood Pressure 112/53 L Pu
--- NOTE | 2022-06-01 10:16 | PCRCNOTE ---
HOME O2 EVAL DONE, 1 L AT REST AND 3 L WITH ACTIVITY, SET UP WITH [employer] PHONE NUMBER [phone].
[2022-06-01] MEDS: FUROSEMIDE INJ 40 MG/4 ML VIAL 20 MG IV PUSH (11:02)
--- NOTE | 2022-06-01 11:10 | PM.IMPN ---
Progress Note: A&P Assessment and Plan (1) Emphysema lung: Code(s): J43.9 - Emphysema, unspecified Status: Acute Assessment and Plan: -the patient was started on Solu-Medrol -continue with nebulizer treatments -continue with oxygen to keep O2 saturations greater than 92%. -the patient was negative for influenza A/B RSV and COVID. -home O2 evaluation. (2) Non-Hodgkin's lymphoma: Code(s): C85.90 - Non-Hodgkin lymphoma, unspecified, unspecified site Status: Acute Assessment and Plan: -consult Dr. Schulz. -continue with her home medications that are non formulary and the family has brought them here for her to take and she may take her own. Continue with per christopher that the patient will bring from home (3) Macular degeneration: Code(s): H35.30 - Unspecified macular degeneration Status: Acute Assessment and Plan: -continue with her visit clear and she may take her home dose. (4) Hypothyroidism: Code(s): E03.9 - Hypothyroidism, unspecified Status: Acute Assessment and Plan: -check thyroid level. - Continue with levothyroxine Subjective Date/time seen: 06/01/22 11:10 No new complaints Exam Narrative: Patient is comfortable, NAD HEENT: eyes are clear and none icteric LUNGS: bilateral fair air entry with harsh breath sound, rhonchi and wheezing ABD: not distended Lower extremities: no edema SKIN: nonjaundiced Neuro: grossly intact. Objective Data Vital Signs Vital Signs: Vital Signs - 24 hr 05/31/22 12:00 05/31/22 14:31 05/31/22 14:47 Temperature Pulse Rate 77 76 81 Respiratory Rate 18 18 Blood Pressure Pulse Oximetry Oxygen Delivery Oxygen Flow Rate 05/31/22 15:10 05/31/22 16:00 05/31/22 19:48 Temperature 98.6 F Pulse Rate 78 77 73 Respiratory Rate 18 20 Blood Pressure 110/53 L Pulse Oximetry 94 93 Oxygen Delivery Nasal Cannula Oxygen Flow Rate 6 05/31/22 19:48 05/31/22 20:03 05/31/22 21:17 Temperature 98.0 F Pulse Rate 73 82 75 Respiratory Rate 20 20 17 Blood Pressure 105/46 L Pulse Oximetry 92 Oxygen Delivery Oxygen Flow Rate 05/31/22 20:00 05/31/22 20:00 06/01/22 00:00 Temperature Pulse Rate 80 71 Respiratory Rate Blood Pressure Pulse Oximetry 92 Oxygen Delivery Nasal Cannula Oxygen Flow Rate 6 06/01/22 02:49 06/01/22 02:49 06/01/22 02:59 Temperature Pulse Rate 70 70 68 Respiratory Rate 20 20 20 Blood Pressure Pulse Oximetry 91 Oxygen Delivery Nasal Cannula Oxygen Flow Rate 6 06/01/22 05:29 06/01/22 04:00 06/01/22 08:04 Temperature 98.4 F Pulse Rate 80 75 61 Respiratory Rate 18 Blood Pressure 112/53 L Pulse Oximetry 94 91 Oxygen Delivery Nasal Cannula Oxygen Flow Rate 6 06/01/22 08:04 06/01/22 08:35 Temperature Pulse Rate 61 Respiratory Rate 20 Blood Pressure Pulse Oximetry 91 Oxygen Delivery Nasal Cannula Oxygen Flow Rate 6 Intake/Output Intake/Output: Intake & Output 05/29/22 05/30/22 05/31/22 06/01/22 23:59 23:59 23:59 23:59 Intake Total 1750 240 Output Total 400 1450 200 Balance -400 300 40 Meds/Results Medications: Active Medications Generic Name Dose Route Start Last Admin Trade Name Freq PRN Reason Stop Dose Admin Albuterol 2.5 mg 05/31/22 02:00 06/01/22 08:04 Albuterol Sulfate Neb 2.5 Mg/3 Ml Inh INHALATION 2.5 mg Q6HRT SHANICE Administration Enoxaparin Sodium 40 mg 05/31/22 09:00 06/01/22 08:31 Enoxaparin 40 Mg/0.4 Ml Syringe SUB-Q 40 mg DAILY SHANICE Administration Home Med 2 each 05/31/22 09:00 06/01/22 08:31 Zanubrutinib [Brukinsa] 80 Mg Capsule Home Medication PO 06/30/22 08:59 2 each BID SHANICE Administration Ipratropium [place] 0.5 mg 05/31/22 02:00 06/01/22 08:04 Ipratropium Br 0.02% Inh Soln 0.5 Mg/2.5 Ml Vial INHALATION 0.5 mg Q6HRT SHANICE Administration Levothyroxine Sodium 125 mcg 06/01/22 06:30
[2022-06-02] VITALS (12 sets, daily range): BP systolic 105; BP diastolic 59; PULSE 70–99; RESP 16–18; TEMP 36.9; O2SAT 82–95
[2022-06-02] MEDS: ALBUTEROL SULFATE NEB 2.5 MG/3 ML INH INHALATION ×2 (02:34→08:05)
[2022-06-02] MEDS: IPRATROPIUM BR 0.02% INH SOLN 0.5 MG/2.5 ML VIAL INHALATION ×2 (02:34→08:05)
[2022-06-02 05:16] LABS: Hematocrit 40.6 % (37.0-47.0); Hemoglobin 12.9 g/dL (12.0-15.0); Mean Corpuscular HGB Conc 31.8 g/dl (32-36); Mean Corpuscular Hemoglobin 30.9 pg (26-34); Mean Corpuscular Volume 97.1 fl (80-100); Mean Platelet Volume 9.7 fl (7.4-10.4); Platelet Count Result 323 k/mm3 (150-375); Red Blood Count 4.18 M/mm3 (4.2-5.4); Red Cell Distribution Width 16.8 % (11.5-14.5); White Blood Count 14.6 K/mm3 (4.5-10.0)
[2022-06-02 05:34] LABS: Anion Gap 1 mmol/L (8-16); Blood Urea Nitrogen 32 mg/dL (7-17); Calcium 8.1 mg/dL (8.4-10.2); Carbon Dioxide 36 mmol/L (22-30); Chloride 91 mmol/L (98-107); Estimated CRCL calculation 29 ml/min; Estimated Glomerular Filt Rate 53; Glucose 112 mg/dL (65-110); Magnesium 2.2 mg/dL (1.6-2.3); Potassium 4.6 mmol/L (3.4-5.0); Sodium 128 mmol/L (137-145)
[2022-06-02] MEDS: LEVOTHYROXINE SODIUM 125 MCG TABLET PO (06:14)
[2022-06-02] MEDS: methylPREDNISolone SOD SUCC 125 MG VIAL 60 MG IV PUSH (06:15)
[2022-06-02] MEDS: ENOXAPARIN 40 MG/0.4 ML SYRINGE SUB-Q (08:44)
--- NOTE | 2022-06-02 10:33 | HOMEO2EVAL ---
Evaluation was performed at [facility] Home Oxygen Evaluation RC: Home Oxygen (O2) Evaluation Start: 06/02/22 10:03 Freq: ONCE Status: Active Protocol: RPE Activity Type Activity Date Activity User E-sign Co-sign Detail Recorded Client Recorded Date Recorded By Document 06/02/22 10:18 CLC [email or web address] 06/02/22 10:33 CLC Document 06/02/22 10:20 CLC [email or web address] 06/02/22 10:33 CLC Document 06/02/22 10:32 CLC [email or web address] 06/02/22 10:33 CLC 06/02/22 06/02/22 06/02/22 10:18 10:20 10:32 Home O2 Evaluation [Oxygen] -Test Phase Resting Resting Exercise -Oxygen Delivery Room Air Nasal Cannula Nasal Cannula -Oxygen Flow Rate (L/min) 3 3 [Pulse Oximetry] -Pulse Oximetry (90-100 %) 92 92 89 L [Pulse Rate] -Pulse Rate (60-100 beats/min) 93 85 99 [Evaluation] -Activity Tolerance Excellent -Rate of Perceived Exertion (PE) 10 Query Text:Click the Protocol Button to View the RPE Scale [Exercise] -Ambulation Distance (feet) 400 -Ambulation Distance (meters) 121.91 [Charges] -Treatment Charges O2 Evaluation - Inpatient
--- NOTE | 2022-06-02 10:33 | PCRCNOTE ---
Home oxygen evaluation complete. Patient requires 3 liters per minute continuously.
--- NOTE | 2022-06-02 10:35 | PM.PNPUL ---
Progress Note: A&P Assessment and Plan (1) Emphysema lung: Code(s): J43.9 - Emphysema, unspecified Status: Acute Assessment and Plan: 87-year-old female admitted to the hospital with a hypoxemia and hypercapnic respiratory failure related to a newly detected COPD. Patient has evidence of mild emphysema on chest CT. patient has improved on regimen of IV steroids nebulized short-acting bronchodilators. Echocardiogram showed no evidence of elevated pulmonary artery systolic pressure, normal EF mild aortic valve stenosis. Plan: Okay to DC patient home on following regimen home oxygen, oxygen flow will be be determined by home oxygen evaluation prior to DC home. She needs to be on home oxygen 26/11 at this point. Anoro inhaler 1 puff daily, rescue albuterol inhaler for p.r.n. use. Prednisone 30 mg p.o. daily for another 5 days. Patient needs to return to pulmonary clinic for further evaluation with pulmonary function testing, 6 minute walk test, and probably repeat blood gases. The case was discussed with the hospitalist will sign off please call with any questions. (2) Hypoxia: Code(s): R09.02 - Hypoxemia Status: Acute (3) Non-Hodgkin's lymphoma: Code(s): C85.90 - Non-Hodgkin lymphoma, unspecified, unspecified site Status: Acute (4) Monoclonal B-cell lymphocytosis of undetermined significance: Code(s): D72.820 - Lymphocytosis (symptomatic) Status: Acute (5) Hypothyroidism: Code(s): E03.9 - Hypothyroidism, unspecified Status: Acute Subjective Date/time seen: 06/02/22 10:35 Interval history: patient doing better no new respiratory symptoms. Anxious to go home Review of Systems Review of Systems: All systems reviewed & are unremarkable except as noted in HPI and below ( HPI and below) Exam Narrative: GENERAL APPEARANCE: Well developed, well nourished, alert and cooperative, and appears to be in no acute distress while on supplemental oxygen SKIN: Inspection of the skin reveals no rashes, ulcerations or petechiae. HEENT: Sclerae anicteric and conjunctivae pink and moist. Extraocular movements were intact and pupils were equal, round, and reactive to light. The oral mucosa, hard and soft palate, tongue and posterior pharynx were normal. NECK: Supple. There was no thyroid enlargement, and no tenderness, or masses were felt. CHEST: Normal AP diameter and normal contour without any kyphoscoliosis. LUNGS: Auscultation of the lungs a few rhonchi and crackles at bases posteriorly, no wheezing. CARDIAC: There was a regular rate and rhythm without any murmurs ABDOMEN: Soft and nontender with normal bowel sounds. There was no organomegaly. LYMPH NODES: No lymphadenopathy was appreciated in the neck. EXTREMITIES: No cyanosis, clubbing or edema. NEUROLOGIC: Alert and oriented x 3. Normal affect. Objective Data Vital Signs Vital Signs: Vital Signs - 24 hr 06/01/22 14:38 06/01/22 14:00 06/01/22 12:00 Temperature 36.6 C Pulse Rate 77 76 73 Respiratory Rate 18 18 Blood Pressure 111/59 L Pulse Oximetry 94 Oxygen Delivery Oxygen Flow Rate 06/01/22 14:52 06/01/22 16:00 06/01/22 21:13 Temperature Pulse Rate 78 86 Respiratory Rate 16 Blood Pressure Pulse Oximetry 95 Oxygen Delivery Nasal Cannula Oxygen Flow Rate 6 06/01/22 21:14 06/01/22 22:14 06/01/22 20:00 Temperature 36.8 C Pulse Rate 77 77 Respiratory Rate 16 18 Blood Pressure 121/56 L Pulse Oximetry 95 95 Oxygen Delivery Nasal Cannula Oxygen Flow Rate 6 06/01/22 20:00 06/02/22 00:00 06/02/22 02:36 Temperature Pulse Rate 76 77 75 Respiratory Rate 18 Blood Pressure Pulse Oximetry Oxygen Delivery Oxygen Flow Rate 06/01/22 22:00 06/01/22 21:26 06/02/22 02:39 Temperature Pulse Rate 79 Respiratory Rate 18 Blood Pressure Pulse Oximetry 95 95 Oxygen Delivery Nasal Cannula Nasal Cannula Oxygen Flow Rate 4
--- NOTE | 2022-06-02 12:19 | PM.DS ---
DS: Admitting Diagnosis Discharge Date June 02, 2022 Admitting Diagnosis COPD DS: Discharge Diagnosis Discharge Diagnosis (1) Emphysema lung: Code(s): J43.9 - Emphysema, unspecified Status: Acute Assessment and Plan: -the patient was started on Solu-Medrol -continue with nebulizer treatments -continue with oxygen to keep O2 saturations greater than 92%. -the patient was negative for influenza A/B RSV and COVID. -home O2 evaluation. (2) Non-Hodgkin's lymphoma: Code(s): C85.90 - Non-Hodgkin lymphoma, unspecified, unspecified site Status: Acute Assessment and Plan: -consult Dr. Schulz. -continue with her home medications that are non formulary and the family has brought them here for her to take and she may take her own. Continue with per christopher that the patient will bring from home (3) Macular degeneration: Code(s): H35.30 - Unspecified macular degeneration Status: Acute Assessment and Plan: -continue with her visit clear and she may take her home dose. (4) Hypothyroidism: Code(s): E03.9 - Hypothyroidism, unspecified Status: Acute Assessment and Plan: -check thyroid level. - Continue with levothyroxine DS: Summary Hospital Course Hospital Course: Patient is a 7-year-old female came with hypoxia and shortness of breath. Likely related to COPD. Medications were adjusted she will follow up with Pulmonary. Oxygen on discharge Time Spent with Patient Time attestation: Total time spent providing and/or coordinating discharge services: Exam Narrative: Patient is comfortable, NAD HEENT: eyes are clear and none icteric LUNGS: bilateral fair air entry with harsh breath sound, rhonchi and wheezing ABD: not distended Lower extremities: no edema SKIN: nonjaundiced Neuro: grossly intact. DS: Data Data Completed and Pending Labs on day of discharge: Labs from last 24 hours 06/02/22 06/02/22 04:38 04:38 WBC 14.6 H RBC 4.18 L Hgb 12.9 Hct 40.6 MCV 97.1 MCH 30.9 MCHC 31.8 L RDW 16.8 H Plt Count 323 MPV 9.7 Sodium 128 L Potassium 4.6 Chloride 91 L Carbon Dioxide 36 H Anion Gap 1 L BUN 32 H Creatinine 1.00 Estim Creat Clear Calc 29 Estimated GFR 53 L Glucose 112 H Calcium 8.1 L Magnesium 2.2 Discharge Plan Discharge Attending physician on discharge: Simba Clark Consulting providers: Esteban Schulz ; Canelo Raymond Discharging Clinician: Simba Clark Patient Disposition: Home, Self-Care Activity: no preference Diet: as tolerated Patient Instructions: Antibiotic Form Stand Alone Forms: General Discharge Information Follow-up/Referrals: Heather Parham [facility] [Primary Care Provider] - Canelo Raymond MD [Physician] - Discharge Medications: New albuterol sulfate 90 mcg/actuation HFA aerosol inhaler 1 inh inhalation QID PRN (Reason: shortness of breath or wheezing) Qty: 8.5 0RF prednisone 50 mg tablet 50 mg PO DAILY Qty: 5 0RF Anoro Ellipta 62.5-25 mcg/actuation blister with device 1 inh inhalation DAILY Qty: 60 0RF Continued visiclear 1 tab-cap BYMOUTH DAILY Brukinsa 80 mg capsule 160 mg PO BID Rx Instructions: 2 tabs BID levothyroxine [Synthroid] 100 mcg tablet 100 mcg PO DAILY Qty: 90 1RF Date of admission: 05/31/22 16:45 Primary Care Provider: Heather Parham Admitting Provider: Milad Godoy Attending physician on admission: Milad Godoy Condition: Guarded Prognosis
--- NOTE | 2022-06-13 11:25 | HOMEO2EVAL ---
Evaluation was performed at [facility]
--- NOTE | 2022-06-13 11:26 | HOMEO2EVAL ---
Evaluation was performed at [facility]
--- NOTE | 2022-06-13 11:29 | HOMEO2EVAL ---
Evaluation was performed at [facility]
== END 2022-06-02 13:45 | disposition home or self-care (01) | DRG 191 ==
LOC: ANHED 16:49 → ANH2MED 17:42
PROVIDERS: Family Medicine; Nurse Practitioner; Admitting Provider Internal Medicine; Emergency Provider Emergency Medicine; PCP Physician Assistant Medical; Visit Provider Chiropractor
DX: J43.9 Emphysema, unspecified (principal); C85.98 Non-Hodgkin lymphoma, unspecified, lymph nodes of multiple sites; J96.11 Chronic respiratory failure with hypoxia; J96.12 Chronic respiratory failure with hypercapnia; E03.9 Hypothyroidism, unspecified; H35.30 Unspecified macular degeneration; Z20.822 Contact with and (suspected) exposure to COVID-19; Q92.8 Other specified trisomies and partial trisomies of autosomes
CPT/HCPCS: 36415; 36600; 71045; 71275; 80047; 80048; 80053; 82375; 82805; 83050; 83605; 83735; 83880; 84439; 84443; 84484; 85025; 85027; 85610; 85730; 87637; 93005; 93306; 94618; 94640; 96374; 96375; 96376; 99285; A9270; G0378; J1650; J1940; J2930; J7030; Q9967

== ENCOUNTER 2022-06-21 13:31 | Inpatient (IN) | payer MEDICARE, SELFPAY ==
[2022-06-21] VITALS (60 sets, daily range): BP systolic 76–150; BP diastolic 51–123; PULSE 78–197; RESP 14–28; TEMP 36.6; O2SAT 64–96; BMI 24.4
--- NOTE | ~2022-06-21 | XR_ITS ---
EXAMINATION: XR chest 1V portable DATE: 07/02/2022 09:46 INDICATION: Shortness of breath. TECHNIQUE: A single frontal view of the chest was obtained. COMPARISON: Chest one view 06/28/2022, chest CT 06/21/2022 FINDINGS: There is a diffuse interstitial pattern in the lungs, consistent with mild pulmonary edema. No pleural effusion or pneumothorax. The heart size is normal. A right upper extremity peripherally inserted central venous catheter (PICC) is seen with tip in the superior vena cava. IMPRESSION: 1. Diffuse interstitial pattern in the lungs with interval improvement, consistent mild pulmonary jose miguel ma. Reviewed, dictated and finalized at location A. TH INSURANCE ADJUSTER IMPRESSION: 1. Diffuse interstitial pattern in the lungs with interval improvement, consist ent mild pulmonary edema.
--- NOTE | ~2022-06-21 | XR_ITS ---
Portable chest x-ray Comparison: 06/24/2022 Clinical History: Respiratory failure Findings: Small right pleural effusion is present. Extensive groundglass and interstitial pulmonary disease in the lungs is unchanged otherwise. Stable right-sided central venous line. Cardiomediastin al silhouette is stable. Bones and soft tissues are unremarkable. Impression: Stable presumed pulmonary edema pattern and small right pleural effusion. Correlate for infection or chronic interstitial disease. Stable support line. Reviewed, dictated and finalized at location . ER OPERATOR Impression: Stable presumed pulmonary edema pattern and small right pleural effusion. Corre late for infection or chronic interstitial disease. Stable support line.
--- NOTE | ~2022-06-21 | CT_ITS ---
EXAMINATION: CTA chest PE protocol DATE: 06/21/2022 16:29 INDICATION: Hypoxia TECHNIQUE: Computed tomography (CT) pulmonary angiogram of the chest was performed with 100 mL Omnipa que-350 intravenous contrast. Additional 3D reconstructions utilizing coronal maximum intensity proje ction (MIP) were performed. Automated exposure control and iterative reconstruction technique were em ployed. The dose-length product was 157.94 mGy-cm. COMPARISON: None FINDINGS: Good contrast opacification of the pulmonary arteries. There is mild streak artifact from dense contr ast in the superior vena cava and right atrium. Mild scattered respiratory motion artifact which only mildly decreases sensitivity in some of the smaller subsegmental pulmonary arteries. No pulmonary em bolism. Mild emphysema. Small bilateral posterior layering pleural effusions, right greater than left . Secondary dependent predominant basilar atelectasis throughout both lungs with reduced mild atelect asis in the bilateral lower lobes. There are diffuse bilateral groundglass opacities with dependent p redominance which could represent additional atelectasis or mild pulmonary edema. Small calcified lef t upper lobe nodule and calcified mediastinal lymph nodes consistent with old granulomatous disease. Mild cardiomegaly. Atherosclerotic coronary artery calcific location. Aortic valve calcification. Tho racic aorta is normal in caliber with no dissection. No interval change in bilateral axillary, suprac lavicular, mediastinal and right hilar lymphadenopathy. Moderate thoracic spondylosis with unchanged mild T4 compression fracture. IMPRESSION: 1. No pulmonary embolism. 2. Small bilateral pleural effusions with dependent atelectasis in both lungs. Additional dependent g roundglass opacities could represent additional less severe atelectasis or mild pulmonary edema. 2. No change since 05/30/2022 and significant improvement since 02/08/2022 in thoracic lymphadenopathy consistent with known prior lymphoma. Reviewed, dictated and finalized at location A. TRICAL HARDWARE ENGINEER IMPRESSION: 1. No pulmonary embolism. 2. Small bilateral pleural effusions with dependent atelectasis in both lungs. Additional dependent groundglass opacities could represent additional less jinny re atelectasis or mild pulmonary edema. 2. No change since 05/30/2022 and significant improvement since 02/08/2022 in tho racic lymphadenopathy consistent with known prior lymphoma.
--- NOTE | ~2022-06-21 | XR_ITS ---
EXAMINATION: XR chest PICC line Exam Date/Time: 06/24/2022 14:50 SEC REPORTING CONSULTANT HISTORY: PICC PLACEMENT Comparison: 06/23/2022. RESULT: Lines, tubes, and devices: Right upper extremity PICC terminating in the SVC. Lungs and pleura: Diffuse reticular and groundglass opacities. Ill-defined left midlung and right lo wer lung consolidation. Obscuration of the right hemidiaphragm and right costophrenic angle blunting. Cardiomediastinal silhouette: Stable. Other: No acute osseous or upper abdominal finding. IMPRESSION: Right upper extremity PICC, in good position. Pulmonary opacities may represent edema/infection. Righ t basilar atelectasis/consolidation with a small right pleural effusion. Reviewed, dictated and finalized at [facility] K. REPORTING CONSULTANT IMPRESSION: Right upper extremity PICC, in good position. Pulmonary opacities may represent edema/infection. Right basilar atelectasis/consolidation with a small right pl eural effusion.
--- NOTE | ~2022-06-21 | XR_ITS ---
Portable chest x-ray Comparison: 07/02/2022 Clinical History: Fluid overload, pneumonia Findings: Stable right-sided central venous line. Probable mild groundglass/interstitial disease is unchanged. No pleural effusion. Cardiomediastinal silhouette is stable. Bones and soft tissues are u nremarkable. Impression: Mild groundglass/interstitial disease, similar to prior exam. Correlate for mild pulmonary edema, aty pical infection, or chronic interstitial disease. Stable support line. Reviewed, dictated and finalized at location M. IS SPECIALIST Impression: Mild groundglass/interstitial disease, similar to prior exam. Correlate for mil d pulmonary edema, atypical infection, or chronic interstitial disease. Stable support line.
--- NOTE | ~2022-06-21 | XR_ITS ---
Portable chest x-ray Comparison: 06/26/2022 Clinical History: Shortness of breath Findings: Small right pleural effusion is present. Right-sided PICC line in place. There is extensiv e groundglass opacity as well as diffuse interstitial prominence. Cardiomediastinal silhouette is st able. Bones and soft tissues are unremarkable. Impression: Small right pleural effusion. Probable moderate pulmonary edema pattern. Correlate for underlying chronic interstitial disease or p neumonia. Support line, as above. Reviewed, dictated and finalized at location M. SMOKER Impression: Small right pleural effusion. Probable moderate pulmonary edema pattern. Correlate for underlying chronic int erstitial disease or pneumonia. Support line, as above.
--- NOTE | ~2022-06-21 | CT_ITS ---
CT Scan of the Chest without Contrast: Clinical Indication: Fluid overload, pneumonia Technique: Contiguous sections were acquired throughout the chest without intravenous contrast. Dose reduction technique was used on this scan by utilizing automated exposure control and iterative recon struction technique. The dose-length product (DLP) was 141.03 mGy-cm. COMPARISON: 06/21/2022 Findings: There is bilateral axillary as well as mediastinal lymphadenopathy, which is similar to prior exam. T here are atherosclerotic calcifications of the aorta. Coronary artery calcification are present. No a ortic aneurysm. No pericardial effusion. There is no evidence of pleural or pericardial effusion. Moderate emphysema present. Bibasilar consolidation suggests bibasilar atelectasis, left worse than r ight, versus pneumonia. Images through the upper abdomen reveal no abnormalities. Impression: Bibasilar atelectasis versus pneumonia, left worse than right. Correlate clinically for signs of infe ction. Bilateral axillary and mediastinal lymphadenopathy, similar to prior exam. Correlate for lymphoma, me tastatic disease, or inflammatory/reactive lymph nodes. Moderate emphysema. Reviewed, dictated and finalized at [facility]. T FERMENTATION ATTENDANT Impression: Bibasilar atelectasis versus pneumonia, left worse than right. Correlate clinic ally for signs of infection. Bilateral axillary and mediastinal lymphadenopathy, similar to prior exam. Gilbert elate for lymphoma, metastatic disease, or inflammatory/reactive lymph nodes. Moderate emphysema.
--- NOTE | ~2022-06-21 | US_ITS ---
EXAMINATION: US venous doppler [facility] DATE: 06/21/2022 16:46 INDICATION: Lower limb pain and swelling TECHNIQUE: Grayscale ultrasound images without and with compression and Doppler ultrasound images of the bilateral lower extremity veins were obtained. COMPARISON: None. FINDINGS: The visualized portions of right common femoral vein, profunda (deep) femoral vein, femoral vein, pop liteal vein, posterior tibial veins, peroneal veins, gastrocnemius vein and greater saphenous vein ou tflow are patent. The visualized portions of left common femoral vein, profunda femoral vein, femoral vein, popliteal v ein, posterior tibial veins, peroneal veins, gastrocnemius vein and greater saphenous vein outflow ar e patent. IMPRESSION: 1. No deep venous thrombosis in either lower limb. Reviewed, dictated and finalized at location A. EATIONAL RESORT MANAGER
--- NOTE | ~2022-06-21 | XR_ITS ---
EXAMINATION: XR chest 1V portable INDICATION: Hypoxia TECHNIQUE: Portable AP chest at 1410 hours COMPARISON: 05/31/2022 FINDINGS: There are small pleural effusions, right greater than left. There are diffuse interstitial and airspace opacities throughout all lung zones. Cardiomegaly is noted. There is no pneumothorax. IMPRESSION: 1. Diffuse lung disease, consistent with pneumonia and/or pulmonary edema. 2. Small pleural effusions. Reviewed, dictated and finalized at location A. FACTURING MACHINE OPERATOR
--- NOTE | ~2022-06-21 | XR_ITS ---
XR chest 1V portable 06/23/2022 01:49 Indication: Respiratory failure Procedure: AP portable chest Comparison: 06/21/2022 Findings: Cardiomegaly. Progression of diffuse bilateral airspace disease with more focal consolidati on left mid thorax. Small right pleural effusion. No pneumothorax. Impression: 1: Interval progression of diffuse bilateral airspace disease with focal consolidation in the left mi dlung. Differential diagnosis includes edema and pneumonia. 2: Small right pleural effusion. Reviewed, dictated and finalized at location A. HOUSE OPERATOR HELPER Impression: 1: Interval progression of diffuse bilateral airspace disease with focal consol idation in the left midlung. Differential diagnosis includes edema and pneumoni a. 2: Small right pleural effusion.
[2022-06-21] MEDS: ALBUTEROL SULFATE NEB 2.5 MG/3 ML INH 10 MG INHALATION (13:58)
[2022-06-21] MEDS: IPRATROPIUM BR 0.02% INH SOLN 0.5 MG/2.5 ML VIAL INHALATION ×2 (13:58→21:30)
[2022-06-21 13:59] LABS: Basophils Absolute Auto 0.1 K/mm3 (0.0-0.1); Basophils Percent Auto 1.2 % (0.2-1.2); Eosinophils Percent Auto 0.1 % (0-4.4); Hematocrit 44.2 % (37.0-47.0); Hemoglobin 13.9 g/dL (12.0-15.0); Lymphocytes Percent Auto 6.9 % (18.3-44.2); Mean Corpuscular HGB Conc 31.4 g/dl (32-36); Mean Corpuscular Hemoglobin 29.8 pg (26-34); Mean Corpuscular Volume 94.8 fl (80-100); Mean Platelet Volume 9.6 fl (7.4-10.4); Monocytes Absolute Auto 0.4 K/mm3 (0.1-0.6); Monocytes Percent Auto 4.3 % (2.6-8.5); Neutrophils Absolute Auto 8.8 K/mm3 (1.3-6.7); Neutrophils Percent Auto 86.5 % (45.5-73.1); Platelet Count Result 492 k/mm3 (150-375); Red Blood Count 4.66 M/mm3 (4.2-5.4); White Blood Count 10.2 K/mm3 (4.5-10.0)
[2022-06-21] MEDS: SODIUM CHLORIDE 0.9% IV 1,000 ML 999 ML IV CONT (13:59)
[2022-06-21] MEDS: methylPREDNISolone SOD SUCC 125 MG VIAL IV PUSH (14:00)
--- NOTE | 2022-06-21 14:08 | ED.SOB ---
HPI - SOB/Dyspnea General Chief Complaint: Shortness of Breath/Dyspnea Stated Complaint: SOB Time Seen by Provider: 06/21/22 13:42 Related Data Home Medications Medication Instructions Recorded Confirmed visiclear 1 tab-cap BYMOUTH DAILY 02/02/22 05/30/22 zanubrutinib 80 mg capsule 160 mg PO BID 05/30/22 05/30/22 (Brukinsa) Allergies Allergy/AdvReac Type Severity Reaction Status Date / Time No Known Allergies Allergy Verified 05/30/22 18:52 FORMERLY [facility], [facility] Past Medical History Medical History Macular degeneration Non-Hodgkin's lymphoma Trisomy 12 Surgical History Surgical History H/O tubal ligation History of appendectomy S/P ORIF (open reduction internal fixation) fracture left wrist Family History Family History Mother Carcinoma of colon Father Cancer Sibling Cancer Social History Social History Social History: She is and has 4 children. jorge schroeder is her daughter who has the durable power title attorney for healthcare. 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 She occasionally has a glass a wine. Code status full code Smoking status: Never smoker Tobacco type: cigarettes Alcohol intake: never Alcohol use details: social - special event Substance use: never Lack of Transportation: No Lack of Food: Never True Current Housing: I Have Housing Concerned About Future Housing: No Difficulty Paying Gas/Electric Bills: No Difficulty Paying for Meds: No Currently Unemployed: No Education: Trade/Vocational Certificate Difficulty w/ Childcare or Family Care: No Living arrangements: alone Occupation/Education: retired Gender identity (if verbalized by the patient): Female Spiritual care concerns: No Course Vital Signs Vital signs: Vital Signs Pulse Rate 153 H 06/21/22 13:39 Respiratory Rate 14 06/21/22 13:39 Blood Pressure 99/63 L 06/21/22 13:39 Pulse Oximetry 64 L 06/21/22 13:39 Oxygen Delivery Nasal Cannula 06/21/22 13:39 Oxygen Flow Rate 3 06/21/22 13:39 Pulse Rate 95 06/21/22 14:02 Respiratory Rate 26 H 06/21/22 14:02 Blood Pressure 99/63 L 06/21/22 13:39 Pulse Oximetry 92 06/21/22 13:44 Oxygen Delivery Non-Rebreather Mask 06/21/22 13:44 Oxygen Flow Rate 15 06/21/22 13:44 MDM - SOB/Dyspnea Lab Data 06/21/22 13:49 06/21/22 13:49 Labs: Lab Results 06/21/22 06/21/22 06/21/22 Range/Units 13:49 13:49 13:49 WBC Pending RBC Pending Hgb Pending Hct Pending MCV Pending MCH Pending MCHC Pending RDW Pending Plt Count Pending MPV Pending Immature Gran % (Auto) Pending Neut % (Auto) Pending Lymph % (Auto) Pending [place] % (Auto) Pending Eos % (Auto) Pending Baso % (Auto) Pending Lymph # (Auto) Pending [place] # (Auto) Pending Eos # (Auto) Pending Baso # (Auto) Pending Abs Immat Gran (auto) Pending Absolute Neuts (auto) Pending Absolute Nucleated RBC Pending Nucleated RBC % Pending PT Pending INR Pending APTT Pending Sodium Potassium Chloride Carbon Dioxide Anion Gap BUN Creatinine Estim Creat Clear Calc Estimated GFR Glucose Lactic Acid Calcium Total Bilirubin AST ALT Alkaline Phosphatase Troponin I Total Protein Albumin Influenza A (RT-PCR) Pending Influenza B (RT-PCR) Pending RSV (RT-PCR) Pending SARS-CoV-2 RNA (RT-PCR) Pending 06/21/22 06/21/22 Range/Units 13:49 13:49 WBC RBC Hgb Hct MCV
--- NOTE | 2022-06-21 14:09 | ED.SOB ---
HPI - SOB/Dyspnea General Chief Complaint: Shortness of Breath/Dyspnea Stated Complaint: SOB Time Seen by Provider: 06/21/22 13:42 History of Present Illness HPI Narrative: Patient is an 87-year-old female with history of COPD on 3 L nasal cannula, non-Hodgkin's lymphoma presenting with hypoxia. Patient was recently admitted here for hypoxia that was attributed to COPD. She was discharged several weeks ago on 3 L nasal cannula to be used 26/11. States that she has been doing okay until the last couple of days she has been feeling increasingly weak. States that she checks her vital signs including her pulse ox every morning. Yesterday she noted that her pulse ox was in the 80s. States that she felt a little weak but otherwise felt okay. Today she checked her vitals and her O2 sat was in the 60s so she came in for evaluation. On arrival, patient is saturating 64% on her baseline 3 L nasal cannula. The only complaint that she really has is generalized weakness. She denies any chest pain, abdominal pain, cough. States that she feels slightly short of breath. Patient's daughter states that the patient has been compliant with all of the medications that she was sent home with but she is concerned that she has not been getting adequate doses of her inhalers due to poor inspiratory effort. Related Data Home Medications Medication Instructions Recorded Confirmed zanubrutinib 80 mg capsule 160 mg PO BID 05/30/22 06/21/22 (Brukinsa) Allergies Allergy/AdvReac Type Severity Reaction Status Date / Time No Known Allergies Allergy Verified 05/30/22 18:52 Review of Systems Review of Systems: All systems reviewed & are unremarkable except as noted in HPI and below [facility] Past Medical History Medical History (Updated 06/25/22 @ 20:55 by Oly Ayala MD) Chronic obstructive pulmonary disease Chronic respiratory failure with hypoxia and hypercapnia Chronic respiratory failure with hypoxia, on home oxygen therapy Diastolic dysfunction Grade 1 diastolic dysfunction on echo in May 2022. LV systolic function was normal with an EF of 65 to 70%. Hypothyroidism Macular degeneration Mild aortic valve stenosis DANYELL of 2 cm2 on echo in May 2022. Non-Hodgkin's lymphoma Trisomy 12 Surgical History Surgical History (Updated 06/21/22 @ 15:25 by Radha Tran PA-C) History of appendectomy History of open reduction and internal fixation (ORIF) procedure Repair left wrist fracture. History of tubal ligation Family History Family History Mother Carcinoma of colon Father Cancer Sibling Cancer Social History Social History (Updated 06/21/22 @ 16:10 by Radha Tran PA-C) Social History: Surrogate medical decision maker: Awa Oneal, daughter. Code status: Full code. Smoking packs per day: 1 Smoking cigarettes per day: 20.0 Years smoked: 65 Smoking pack-years: 65.00 Smoking status: Former smoker Tobacco type: cigarettes Second hand tobacco smoke exposure: No Alcohol intake: current Drinks per week: 1 Substance use: current Substance use type: does not use Lack of Transportation: No Lack of Food: Never True Current Housing: I Have Housing Concerned About Future Housing: No Difficulty Paying Gas/Electric Bills: No Difficulty Paying for Meds: No Currently Unemployed: No Education: Bachelor's Degree Difficulty w/ Childcare or Family Care: No Additional living arrangements comments: with 4 children. Lives in her own home in [place]. Occupation/Education: retired Spiritual care concerns: No Exam Narrative: GENERAL: Elderly female, nontoxic HEAD: Normocephalic, atraumatic. EYES: PERRLA and EOMI. ENT: Nares clear, no rhinorrhea or epistaxis. Mucous membranes moist. NECK: Supple. CHEST: Moderate respiratory distress, tachypneic on nonrebreather, mild wheezing bilaterally HEART: Regula
[2022-06-21 14:10] LABS: INR 1.1; Prothrombin Time 13.8 Seconds (11.1-14.7)
[2022-06-21 14:11] LABS: Lactic Acid Reflex 2.5 mmol/L (0.7-2.0); Partial Thromboplastin Time 29.5 SECONDS (22.3-36.8)
[2022-06-21 14:12] LABS: Alanine Aminotransferase 20 U/L (6-35); Albumin Level 3.2 g/dL (3.5-5.1); Alkaline Phosphatase 59 U/L (38-126); Anion Gap 3 mmol/L (8-16); Aspartate Amino Transferase 33 U/L (14-36); Bilirubin,Total 0.7 mg/dL (0.2-1.3); Blood Urea Nitrogen 25 mg/dL (7-17); Calcium 8.5 mg/dL (8.4-10.2); Carbon Dioxide 33 mmol/L (22-30); Chloride 97 mmol/L (98-107); Estimated CRCL calculation 35 ml/min; Estimated Glomerular Filt Rate 53; Glucose 126 mg/dL (65-110); Potassium 4.5 mmol/L (3.4-5.0); Sodium 133 mmol/L (137-145)
--- NOTE | 2022-06-21 14:15 | ECG_ITS ---
Measurements Intervals [place] Rate: 97 P: 60 MD: 145 QRS: -14 QRSD: 77 T: 51 QT: 319 QTc: 407 Interpretive Statements SINUS RHYTHM WITH SINUS ARRHYTHMIA POSSIBLE LEFT ATRIAL ENLARGEMENT [-0.1mV P WAVE IN V1/V2] LOW QRS VOLTAGE IN PRECORDIAL LEADS [QRS DEFLECTION < 1.0 mV IN CHEST LEADS] INFERIOR MYOCARDIAL INFARCTION , PROBABLY OLD [40+ ms Q WAVE AND/OR ST/T ABNORMALITY IN II/aVF] COMPARED TO ECG 05/30/2022 16:22:06 SINUS ARRHYTHMIA NOW PRESENT Electronically Signed On 06-21-2022 15:00:52 STATE MANAGER by Ren Olea M.D.
[2022-06-21 14:28] LABS: Troponin I 0.036 ng/mL (0.000-0.034)
[2022-06-21 14:35] LABS: Influenza A QL RT-PCR Negative (Negative); Influenza B QL RT-PCR Negative (Negative); RSV RNA, RT-PCR Negative (Negative); SARS-CoV-2 RNA PCR Negative
[2022-06-21 15:08] LABS: Base Excess ABG 3.8 mEq/l (+/-2.0); Carboxyhemoglobin 1.6 % THb (0-2.0); Fractional Inspired Oxygen 50 %; HCO3 ABG 31.3 mEq/l (22.0-26.0); Methemoglobin ABG 0.4 %THb (0-1.5); Oxygen Content ABG 17.7 %vol (16.0-22.0); Oxygen Saturation ABG 90.1 % (95.0-100.0); PCO2 ABG 59.5 mmHg (35.0-45.0); PO2 ABG 62.6 mmHg (80.0-100.0); PO2 FiO2 Ratio Arterial Blood 1.25 %; Reduced Hemoglobin 10.6 %THb (0-5.0); Total Hemoglobin 14.4 g/dL (12.0-18.0)
[2022-06-21 15:09] LABS: Device OTHER DEVICE; Modified Allen's Test Pass; Oxyhemoglobin 87.4 % THb (90.0-100.0); Site Drawn LEFT RADIAL
[2022-06-21 15:10] LABS: pH ABG 7.339 (7.350-7.450)
[2022-06-21 15:12] LABS: NT Pro B Type Natriuretic Pept 5030 pg/mL (19.9-100)
--- NOTE | 2022-06-21 15:30 | PM.IMHP ---
H&P: HPI History of Present Illness Date/Time: 06/21/22 15:30 Chief Complaint: Low oxygen levels. Narrative: This is an 87-year-old female former smoker with history of non-Hodgkin lymphoma, hypothyroidism, and newly detected COPD with evidence of chronic hypoxemic and hypercapnic respiratory failure during a recent hospitalization who presented to the emergency department from home for evaluation of low oxygen levels. Patient provides the following history. Her daughter Awa provides additional information, with the patient's permission. The patient was diagnosed with non-Hodgkin lymphoma last fall and her lymphadenopathy has reportedly improved quite impressively on Brukinsa. Since she started that drug however her daughter has noticed that the patient seems to be a bit short of breath with activity and her energy has not been what it was previously. The patient is quite stoic and seems to downplay her symptoms however. She was recently admitted to the hospital after she was found to be profoundly hypoxic (SpO2 was reportedly in the 60s) when she presented to her doctor's office on 05/30/2022. She was seen in consultation by Dr. Schulz and Dr. Raymond (pulmonology). Given her longstanding smoking history and evidence of such, it was thought that she was hypoxic due to the COPD and she was started on inhalers and prednisone with plans for further workup as an outpatient. Since discharge she reports that she has been doing okay but her daughter continues to notice that she appears short of breath with activities and sometimes even with talking. She has been monitoring her pulse ox at home and it has been above 92 most of the time on 3 L however the last couple of days she has had several low readings. This morning her SpO2 was reportedly 64% on her 3 L and she came in for evaluation. She was placed on a non-rebreather in the emergency department and has been weaned to high-flow nasal cannula at the time my evaluation. She was afebrile on arrival and vital signs were stable however just prior to going up to the floor she went into new onset atrial fibrillation with rapid ventricular response for which she has been started on an amiodarone drip and bolus. Interestingly she denies sensations of racing heart and palpitations and she is not having any chest discomfort, lightheadedness, or dizziness. She has not noticed a fast heart rate on her pulse oximeter. She also denies fever, chills, and sweats. She has not had any nausea or vomiting. Dr. Millard (pulmonology) was consulted and for now she requested patient being started on broad-spectrum antibiotics for possible pneumonia (chest x-ray shows diffuse lung disease consistent with pneumonia and/or a pulmonary edema) and she recommends a CTA of the chest. Review of Systems Review of Systems: Twelve systems were reviewed and are negative except for as per HPI. [facility] Past Medical History Medical History (Updated 06/21/22 @ 20:55 by Radha Tran PA-C) Chronic obstructive pulmonary disease Chronic respiratory failure with hypoxia and hypercapnia Chronic respiratory failure with hypoxia, on home oxygen therapy Diastolic dysfunction Grade 1 diastolic dysfunction on echo in May 2022. LV systolic function was normal with an EF of 65 to 70%. Hypothyroidism Macular degeneration Mild aortic valve stenosis DANYELL of 2 cm2 on echo in May 2022. Non-Hodgkin's lymphoma Trisomy 12 Surgical History Surgical History (Updated 06/21/22 @ 15:25 by Radha Tran PA-C) History of appendectomy History of open reduction and internal fixation (ORIF) procedure Repair left wrist fracture. History of tubal ligation Family History Family History Mother Carcinoma of colon Father Cancer Sibling Cancer Social History Social History (Updated 06/21/22 @ 16:10 by Radha Tran PA-C) Social History: Surrogate medical decision maker: Awa
[2022-06-21 16:56] LABS: Reflex Lactic Acid Yes or No Add Lactic
--- NOTE | 2022-06-21 17:14 | ECG_ITS ---
Measurements Intervals [place] Rate: 188 P: TX: 0 QRS: -1 QRSD: 84 T: 96 QT: 216 QTc: 383 Interpretive Statements ATRIAL FIBRILLATION WITH RAPID VENTRICULAR RESPONSE LOW QRS VOLTAGE IN EXTREMITY LEADS [QRS DEFLECTION < 0.5 mV IN LIMB LEADS] NONSPECIFIC ST & T-WAVE ABNORMALITY COMPARED TO ECG 06/21/2022 14:45:47 ATRIAL FIBRILLATION NOW PRESENT T-WAVE ABNORMALITY NOW PRESENT Electronically Signed On 06-21-2022 20:14:18 CARDIOLOGIST by Bhumika Zhou M.D.
[2022-06-21 17:18] LABS: Lactic Acid Reflex 3.9 mmol/L (0.7-2.0)
[2022-06-21 17:22] LABS: CRP 5.5 mg/dL (<1.0)
[2022-06-21] MEDS: AMIODARONE 150 MG/D5W 100 ML 150 MG/100 ML BAG 600 MG IV CONT (17:31)
[2022-06-21 17:34] LABS: Troponin I 0.037 ng/mL (0.000-0.034)
[2022-06-21] MEDS: AMIODARONE 360 MG/D5W 200 ML 360 MG/200 ML BAG 33.33 MG IV CONT (18:02)
[2022-06-21 18:22] LABS: Procalcitonin 0.2 ng/mL
[2022-06-21 20:14] LABS: Magnesium 1.5 mg/dL (1.6-2.3)
--- NOTE | 2022-06-21 20:15 | PC.NURSE ---
This patient, Cindy Estrada, was admitted to IMU Room 210-01. Patient/family oriented to hospital policies and general routines including ID bracelet, bed and alarms, visiting hours, pain management, procedures, bathroom and other care routines, personal items, smoking policy, room service/diet, and visiting hours. Information on how to activate the Rapid Response Team has been discussed. Patient/Family are encouraged to report perceived risks to care and to ask questions if they do not understand what they are told or what they should do.
[2022-06-21] MEDS: MAGNESIUM SULF 2 GM/WATER 50ML 2 GM/50 ML BAG IVPB (21:26)
[2022-06-21] MEDS: FUROSEMIDE INJ 40 MG/4 ML VIAL 20 MG IV PUSH ×2 (21:26→23:14)
[2022-06-21] MEDS: ALBUTEROL SULFATE NEB 2.5 MG/3 ML INH INHALATION (21:30)
[2022-06-21] MEDS: DOXYCYCLINE 100 MG/NS 100 ML 100 MG/100 ML BAG IVPB (22:44)
[2022-06-21 23:52] LABS: Appearance Urine Clear (Clear); Bilirubin Urine Negative (Negative); Blood Urine Negative (Negative); Color Urine Yellow (Yellow); Glucose Urine UA Negative (Negative); Ketones Urine Negative (Negative); Leukocyte Esterase Ur Negative LEU/UL (Negative); Nitrate Urine Negative (Negative); Protein Urine Negative (Negative); Specific Grav Ur 1.015 (1.001-1.035); Urobilinogen Urine 0.2 mg/dL (<2.0); pH Urine 5.5 (5.0-9.0)
--- NOTE | 2022-06-21 23:56 | PCRCNOTE ---
Apnea link unable to be applied due to pt being on 15L high flow nasal cannula.
[2022-06-22] VITALS (38 sets, daily range): BP systolic 83–107; BP diastolic 49–70; PULSE 49–131; RESP 16–22; TEMP 35.8–36.6; O2SAT 86–93
[2022-06-22] MEDS: AMIODARONE 360 MG/D5W 200 ML 360 MG/200 ML BAG 16.67 MG IV CONT (00:47)
[2022-06-22 01:47] LABS: Add Urine Microscopic? NO
[2022-06-22] MEDS: ALBUTEROL SULFATE NEB 2.5 MG/3 ML INH INHALATION ×3 (02:00→19:06)
[2022-06-22] MEDS: IPRATROPIUM BR 0.02% INH SOLN 0.5 MG/2.5 ML VIAL INHALATION ×3 (02:00→19:06)
[2022-06-22 05:02] LABS: Hematocrit 39.8 % (37.0-47.0); Hemoglobin 12.8 g/dL (12.0-15.0); Mean Corpuscular HGB Conc 32.2 g/dl (32-36); Mean Corpuscular Hemoglobin 29.2 pg (26-34); Mean Corpuscular Volume 90.9 fl (80-100); Mean Platelet Volume 9.9 fl (7.4-10.4); Platelet Count Result 488 k/mm3 (150-375); Red Blood Count 4.38 M/mm3 (4.2-5.4); Red Cell Distribution Width 16.9 % (11.5-14.5); White Blood Count 8.3 K/mm3 (4.5-10.0)
[2022-06-22 05:13] LABS: Alanine Aminotransferase 18 U/L (6-35); Albumin Level 3.1 g/dL (3.5-5.1); Alkaline Phosphatase 60 U/L (38-126); Anion Gap 5 mmol/L (8-16); Aspartate Amino Transferase 26 U/L (14-36); Bilirubin,Total 0.3 mg/dL (0.2-1.3); Blood Urea Nitrogen 31 mg/dL (7-17); Calcium 7.9 mg/dL (8.4-10.2); Carbon Dioxide 32 mmol/L (22-30); Chloride 95 mmol/L (98-107); Estimated CRCL calculation 30 ml/min; Estimated Glomerular Filt Rate 53; Glucose 173 mg/dL (65-110); Potassium 3.8 mmol/L (3.4-5.0); Sodium 132 mmol/L (137-145)
[2022-06-22] MEDS: LEVOTHYROXINE SODIUM 125 MCG TABLET PO (06:37)
--- NOTE | 2022-06-22 08:10 | PM.IMPN ---
Progress Note: A&P Assessment and Plan (1) Acute on chronic respiratory failure with hypoxia and hypercapnia: Code(s): J96.21 - Acute and chronic respiratory failure with hypoxia; J96.22 - Acute and chronic respiratory failure with hypercapnia Status: Acute Assessment and Plan: The patient presented to the ED from home for evaluation of hypoxia (SpO2 was reportedly 64% on 3 L nasal cannula at home). She is chronically on home O2 at 3L. The patient herself has no significant feelings of shortness of breath though daughter notices that she is winded with minimal activity and has conversational dyspnea. ABG done after she was on a non-rebreather for quite some time showed 7.34/59.5/63 on 8L. She was on bipap but has been weaned to high-flow nasal cannula and seems to be comfortable at the time my evaluation. -Chest x-ray shows diffuse lung disease which could be pneumonia and/or pulmonary edema. -Influenza, RSV and COVID negative -She is afebrile and WBC about normal. Empiric abx started. -Echo from 05/28 showing EF 65% and grade I diastolic dysfunction. -CTA showing no PE but small bilateral pleural effusions with atelectasis and possibly mild pulm edema. -Prednisone started Clinically better and able to be weaned to HFNC. Continue to wean O2 as tolerated. Appreciate pulmonary input. Bubble study ordered (2) Atrial fibrillation with rapid ventricular response: Code(s): I48.91 - Unspecified atrial fibrillation Status: Acute Assessment and Plan: In the ED, patient developed new onset AFib with RVR. She was started on an amiodarone. She was asymptomatic -Amio changed to Sotalol -She converted to NSR around 2pm on 06/22/22 -Sotalol dose decreased due to bradycardia. -[id number] - 3 (age, female) -TSH normal. CTA negative for PE Appreciate Cardiology input. Continue Sotalol. Eliquis started as well. Monitor on tele. Consider ischemia evaluation to explain the resp failure and nw onset AFib. (3) Pneumonia: Code(s): J18.9 - Pneumonia, unspecified organism Status: Acute Assessment and Plan: CT Chest as mentioned above. She is on zanabrutinib which can cause PNA and opportunistic infections. -Currently on ceftriaxone, doxycycline and vancomycin -BCx NGTD -Urine antigens ordered Appreciate Pulmonary input. (4) Chronic obstructive pulmonary disease: Code(s): J44.9 - Chronic obstructive pulmonary disease, unspecified Status: Acute Assessment and Plan: CT Chest showing mild emphysema. She is on Anoro scheduled and Albuterol inhaler prn at home. No wheezing. -Prednisone started -Pulmicort Respules started -On Albuterol and Atrovent nebs and Anoro inhaler Hold Anoro. As above (5) Elevated troponin: Code(s): R77.8 - Other specified abnormalities of plasma proteins Status: Acute Assessment and Plan: Trop only mildly elevated to 0.037. [place] related to the respiratory failure and AFib/RVR. mildly elevated Trop not felt to be clinically significant. As above. (6) Diastolic dysfunction: Code(s): I51.89 - Other ill-defined heart diseases Status: Acute Assessment and Plan: Noted by Echo in May. Plan Subjective Date/time seen: 06/22/22 08:10 Interval history: 87yo female former smoker with history of non-Hodgkin lymphoma, hypothyroidism, and newly detected COPD with evidence of chronic hypoxemic and hypercapnic respiratory failure during a recent hospitalization who presented to the emergency department from home for evaluation of low oxygen levels. Patient was on BiPAP mostly morning but has been weaned off. Currently on high-flow nasal cannula. She is tolerating this. She denies feeling short of breath. She denies chest pain. No nausea or vomiting. No odynophagia or dysphagia. Patient did have AFib with RVR but converted to normal sinus rhythm earlier today. Exam Narrative: AF 97.8 99/70 5
[2022-06-22] MEDS: DOXYCYCLINE 100 MG/NS 100 ML 100 MG/100 ML BAG IVPB ×2 (08:48→23:01)
[2022-06-22] MEDS: ENOXAPARIN 40 MG/0.4 ML SYRINGE SUB-Q (08:48)
[2022-06-22] MEDS: UMECLIDINIUM/VILANTEROL 62.5-25 MCG ELLIPTA 1 PUFF INHALATION (09:21)
[2022-06-22 09:31] LABS: Free T4 Free Thyroxine Reflex 1.45 ng/dL (0.78-2.19)
--- NOTE | 2022-06-22 10:16 | PM.CNCAR ---
Assessment and Plan Assessment and plan (1) Atrial fibrillation with rapid ventricular response: Code(s): I48.91 - Unspecified atrial fibrillation Status: Acute Plan This is an 87-year-old lady with acute onset of atrial fibrillation yesterday evening when she was coming to the emergency room for evaluation of hypoxemia. Presumably because of the hypoxemia she has experienced the acute onset of atrial fibrillation. She is receiving intravenous amiodarone with some improvement in her heart rate but still is in atrial fibrillation. At this time I would recommend stopping the amiodarone since this is of would not be my 1st choice of antiarrhythmic drug since she has significant chronic lung disease. I am going to start her on some oral sotalol there is no apparent history of wheezing or asthmatic problems I will also systemically anticoagulate her with apixaban. Recent echocardiogram last month shows her LV systolic function to be good she has modest aortic valve stenosis but no significant valvulopathy. We will follow her with you while she is in the hospital and hope to restore sinus rhythm medically since the atrial fibrillation is a new onset arrhythmia last evening. Simba Jackson MD [facility] History of Present Illness History of Present Illness Consult date/time: 06/22/22 10:16 Consult reason: atrial fibrillation Reason For Visit: HYPOXIA Narrative: This is a an 87-year-old woman I am seeing at the request of the hospitalist because of atrial fibrillation. The patient was seen in room 210 with her [id number] at the bedside. This is a lady I have not seen in the past. She has no history of cardiac problems that she can recall and was admitted to the hospital last night because of hypoxemia. The patient apparently was recently found to have significant chronic lung disease which apparently she was not aware of until just recently following pulmonology consultation she has been hospitalized here with hypoxemia back in May and was seen by the hospitalist on the pulmonology consultants. She was in sinus rhythm at that time and had an echocardiogram in the hospital that demonstrated normal left ventricular size and systolic function along with some mild aortic valve stenosis. She is not known to have asthma or wheezing according to the notes. She is not known to have ischemic heart disease. When she was in the emergency room last night being evaluated for recurrent hypoxemia she was in sinus rhythm but will apparently while in the ER converted to atrial fib with RVR. With respect to her atrial fibrillation her heart rate was 150-160 but she was completely unaware of it and not having any additional complaints as a result of that she was placed on intravenous amiodarone and admitted to the IMU in that setting we have been asked to see her in consultation she has not been systemically anticoagulated. The patient is speaking to me with a BiPAP mask in place and offers no other complaints. Her chest x-ray per my opinion shows significant pulmonary hyperinflation and normal size cardiac silhouette. She has IV amiodarone running her heart rate is still in the 120-130 range. 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 She being treated with chemotherapy for this. Review of Systems Review of Systems: ROS unobtainable: Yes unobtainable due to medical condition FOR[facility], [facility] Past Medical History Medical History (Updated 06/21/22 @ 20:55 by Radha Tran PA-C) Chronic obstructive pulmonary disease Chronic respiratory failure with hypoxia and hypercapnia Chronic respiratory failure with hypoxia, on home oxygen therapy Diastolic dysfunction Grade 1 diastolic dysfunction on echo in May 2022. LV systolic function was normal with an EF of 65 to 70%. Hypothyroidism Macular degeneration Mild aortic valve stenosis DANYELL o
--- NOTE | 2022-06-22 11:04 | PHAR ---
HOME MED: BRUKINSA 80 MG CAPSULE; TAKE 2 CAPS (160 MG) BY MOUTH TWICE A DAY. VERIFIED BY PHARMACY.
--- NOTE | 2022-06-22 11:12 | PM.CNPUL ---
Assessment and Plan Assessment and plan (1) Acute on chronic respiratory failure with hypoxia and hypercapnia: Code(s): J96.21 - Acute and chronic respiratory failure with hypoxia; J96.22 - Acute and chronic respiratory failure with hypercapnia Status: Acute Assessment and Plan: This patient has worsening hypercapnic hypoxemic respiratory failure with bilateral infiltrates and a moderate size effusion on the right side. 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 Wean O2, monitor saturation; she has not been on dapsone or other drugs that might cause abnoraml readings on oximeter or cause increase in de-oxyhemoglobin. (2) Pneumonia: Code(s): J18.9 - Pneumonia, unspecified organism Status: Acute Assessment and Plan: Now on IV ceftriaxone , doxycycline and vancomycin; she has no sputum for testing. Check urine antigens for pulmonary pathogens; pneumococcus, Legionella, mycoplasma She is at risk for Pneumocystis while using zanabrutinib She is not on prophylaxis for PJP now, but is at high risk. I will start Bactrim DS 1 a day at discharge for PJP prophylaxis. She is negative for Influenza A, B, RSV a,d SARZ-Co-V2. (3) Chronic obstructive pulmonary disease: Code(s): J44.9 - Chronic obstructive pulmonary disease, unspecified Status: Acute Assessment and Plan: continue maintenance COPD Rx with Anoro, rescue lev-albuterol add inhaled steroid through nebulizer, budesonide BID Plan O2 to maintain saturation above 90%. She has been on BiPAP 04/10 with 70% her saturation is 96-97%. She does not need this much oxygen. She also needs to have a break from wearing BiPAP; Airvo or other O2 delivery can be used, allow her to eat, drink and rest. Empiric antibiotics to cover opportunistic infection and community-acquired pathogens. She has had a recent echo but she does need the bubble portion to evaluate for significant hypoxemia caused by an intracardiac shunt. she is too old to surgically fix it but at least to be an explanation. Methemoglobin is normal. SARS-Co-V-2 was normal May 30 & Jun 21, so this is not COVID. Empiric steroids for COPD with pneumonia. History of Present Illness History of Present Illness Consult date: 06/22/22 Requesting physician: Radha Tran PA-C Chief complaint: HYPOXIA Narrative: reason for consult: Hypoxemia, pneumonia, sat 69% on 3 L/min Her daughter Awa is here and helps with history. NEW: Cindy Estrada is an 87-year-old woman admitted with hypoxemia without distress. 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 She had an admission recently in May with low O2 with a new diagnosis of COPD with hypercapnia and hypoxemia, placed on O2, discharged home on O2 and a steroid taper with Anoro and albuterol inhaler to use Q 4 hours p.r.n. She lives alone. Over the last few days, she has been having lower saturation, in the 80% range Saturday, 69% yesterday , normally is 90%. The patient said that she was not having any problems but family noticed that she had difficulty walking and that her thinking was not quite as clear. She came to the emergency department, had saturation in the 69% range with few complaints of shortness of breath or coughing. Chest CT Small bilateral pleural effusions with dependent atelectasis in both lungs. Additional dependent groundglass opacities could represent additional less severe atelectasis or mild pulmonary edema. Chest CT a
[2022-06-22] MEDS: APIXABAN 2.5 MG TABLET PO ×2 (11:23→23:00)
[2022-06-22] MEDS: SOTALOL HCL 80 MG TABLET PO (11:24)
[2022-06-22 11:31] LABS: Total Triiodothyronine (T3) 0.35 NG/ML (0.97-1.69)
--- NOTE | 2022-06-22 13:17 | PCCARD ---
CANCELED ECHO W/BUBBLE STUDY ORDERED 06/21/22. TALKED WITH DR DESAI AND HE SAID IT WAS NOT NEEDED AT THIS TIME DUE TO RECENTLY HAVING AN ECHO 05/31/22.
--- NOTE | 2022-06-22 13:41 | ECG_ITS ---
Measurements Intervals [place] Rate: 48 P: 55 LA: 182 QRS: 10 QRSD: 77 T: 42 QT: 465 QTc: 416 Interpretive Statements SINUS BRADYCARDIA POSSIBLE LEFT ATRIAL ENLARGEMENT [-0.1mV P WAVE IN V1/V2] LOW QRS VOLTAGE IN EXTREMITY LEADS [QRS DEFLECTION < 0.5 mV IN LIMB LEADS] SEPTAL MYOCARDIAL INFARCTION , OF INDETERMINATE AGE [40+ ms Q WAVE IN V1/V2] COMPARED TO ECG 06/21/2022 17:16:50 SINUS RHYTHM REPLACES ATRIAL FIBRILLATION Electronically Signed On 06-22-2022 15:33:35 DRILLING FLUIDS SPECIALIST by Simba Jackson M.D.
[2022-06-22 18:21] LABS: Anion Gap 3 mmol/L (8-16); Blood Urea Nitrogen 32 mg/dL (7-17); Carbon Dioxide 31 mmol/L (22-30); Chloride 96 mmol/L (98-107); Estimated CRCL calculation 33 ml/min; Estimated Glomerular Filt Rate 60; Glucose 138 mg/dL (65-110); Potassium 4.4 mmol/L (3.4-5.0); Sodium 130 mmol/L (137-145)
[2022-06-22] MEDS: BUDESONIDE RESPULE NEB 0.5 MG/2 ML AMP INHALATION (19:06)
[2022-06-22] MEDS: SOTALOL HCL 40 MG TABLET PO (22:59)
[2022-06-23] VITALS (30 sets, daily range): BP systolic 104–128; BP diastolic 50–81; PULSE 51–63; RESP 17–27; TEMP 36.4–37.7; O2SAT 86–95
--- NOTE | 2022-06-23 | ECHO_ITS ---
Patient Info Name: Cindy Estrada Age: 87 years : 1935 Gender: Female Ht: 63 in Wt: 137 lbs BSA: 1.67 m2 HR: 59 bpm BP: 128 / 64 mmHg Heart Rhythm: Sinus Rhythm Exam Date: 06/23/2022 7:18 AM Exam Location: [facility] Patient Status: Inpatient Admit Date: 06/21/2022 Staff Ordering Physician: Dileep Moreland MD [employer]: DIPIKA Attending Provider: Chapincito Mendoza MD Exam Type: CA echo limited w bubble study Study Info Indications R06.02 - Shortness of breath R06.00 - Dyspnea, unspecified Limited two-dimensional transthoracic echocardiogram is performed with agitated saline. Summary 1. No evidence for inqzn-um-aaee shunt at the atrial level with injection of agitated saline with and without Valsalva. 2. Left ventricular chamber dimension is normal. 3. Left ventricular systolic function is normal, estimated at 60-65%. 4. Limited study with limited views. Left Ventricle Left ventricular chamber dimension is normal. Left ventricular systolic function is normal, estimated at 60-65%. Limited study with limited views. Atrial Septum No evidence for dkyns-[id number]-bqrj shunt at the atrial level with injection of agitated saline with and without Valsalva. Report Signatures
--- NOTE | 2022-06-23 01:01 | ECG_ITS ---
Measurements Intervals [place] Rate: 54 P: 262 CO: 223 QRS: 15 QRSD: 82 T: 47 QT: 453 QTc: 430 Interpretive Statements SINUS RHYTHM BASELINE ARTIFACT SEPTAL INFARCT, AGE INDETERMINATE LOW QRS VOLTAGE IN EXTREMITY LEADS ABNORMAL ECG COMPARED TO ECG 06/22/2022 14:03:18 NO SIGNIFICANT CHANGES Electronically Signed On 06-23-2022 16:40:44 FLOORING SALES MANAGER by Jc Lafleur M.D.
[2022-06-23 01:50] LABS: Alveolar/Arterial O2 Gradient 608.9 mmHg; Base Excess ABG 6.1 mEq/l (+/-2.0); Carboxyhemoglobin 0.4 % THb (0-2.0); Fractional Inspired Oxygen 100 %; HCO3 ABG 31.4 mEq/l (22.0-26.0); Methemoglobin ABG 0.3 %THb (0-1.5); Oxygen Content ABG 17.1 %vol (16.0-22.0); Oxygen Saturation ABG 89.8 % (95.0-100.0); PO2 ABG 56.1 mmHg (80.0-100.0); PO2 FiO2 Ratio Arterial Blood 0.56 %; Reduced Hemoglobin 11.8 %THb (0-5.0); Total Hemoglobin 13.9 g/dL (12.0-18.0); pH ABG 7.434 (7.350-7.450)
[2022-06-23 01:52] LABS: Device BIPAP; Modified Allen's Test Pass; Oxyhemoglobin 87.5 % THb (90.0-100.0); Site Drawn RIGHT RADIAL
[2022-06-23 01:53] LABS: Expiratory Pressure 8 cmH2O; Inspiratory Pressure 18 cmH2O
--- NOTE | 2022-06-23 01:53 | PCRCNOTE ---
Pt was unable to keep saturation 88% or greater on 60L/100% Fi02 on optiflow. pt was switch to BIPAP 04/10 original setting. Sp02 remain 80-84%. RT titrated BIPAP setting to /, Fi02 100% to achieve saturation 88%. MD was notified and ABG was drawn.
[2022-06-23] MEDS: ALBUTEROL SULFATE NEB 2.5 MG/3 ML INH INHALATION ×4 (02:16→20:55)
[2022-06-23] MEDS: IPRATROPIUM BR 0.02% INH SOLN 0.5 MG/2.5 ML VIAL INHALATION ×4 (02:16→20:55)
[2022-06-23 06:21] LABS: Estimated CRCL calculation 33 ml/min; Estimated Glomerular Filt Rate 60
[2022-06-23 08:30] LABS: Anion Gap 1 mmol/L (8-16); Blood Urea Nitrogen 31 mg/dL (7-17); Calcium 8.1 mg/dL (8.4-10.2); Carbon Dioxide 32 mmol/L (22-30); Chloride 94 mmol/L (98-107); Estimated CRCL calculation 33 ml/min; Estimated Glomerular Filt Rate 60; Glucose 85 mg/dL (65-110); Potassium 4.2 mmol/L (3.4-5.0); Sodium 127 mmol/L (137-145)
--- NOTE | 2022-06-23 08:30 | PM.IMPN ---
Progress Note: A&P Assessment and Plan (1) Acute on chronic respiratory failure with hypoxia and hypercapnia: Code(s): J96.21 - Acute and chronic respiratory failure with hypoxia; J96.22 - Acute and chronic respiratory failure with hypercapnia Status: Acute Assessment and Plan: The patient presented to the ED from home for evaluation of hypoxia (SpO2 was reportedly 64% on 3 L nasal cannula at home). She is chronically on home O2 at 3L. The patient herself has no significant feelings of shortness of breath though daughter notices that she is winded with minimal activity and has conversational dyspnea. ABG done after she was on a non-rebreather for quite some time showed 7.34/59.5/63 on 8L. She was on bipap but has been weaned to high-flow nasal cannula and seems to be comfortable at the time my evaluation. -Chest x-ray shows diffuse lung disease which could be pneumonia and/or pulmonary edema. -Influenza, RSV and COVID negative -She is afebrile and WBC about normal. Empiric abx started. -Echo from 05/28 showing EF 65% and grade I diastolic dysfunction. -CTA showing no PE but small bilateral pleural effusions with atelectasis and possibly mild pulm edema. -Prednisone started Clinically better and able to be weaned to HFNC during the day. Continue to wean O2 as tolerated. Continue IV abx. Appreciate pulmonary input. (2) Atrial fibrillation with rapid ventricular response: Code(s): I48.91 - Unspecified atrial fibrillation Status: Acute Assessment and Plan: In the ED, patient developed new onset AFib with RVR. She was started on an amiodarone. She was asymptomatic -Amio changed to Sotalol -She converted to NSR around 2pm on 06/22/22 -Sotalol dose decreased due to bradycardia. -[id number] - 3 (age, female) -TSH normal. CTA negative for PE Appreciate Cardiology input. Continue Sotalol. Eliquis started as well. Monitor on tele. Consider ischemia evaluation to explain the resp failure and new onset AFib. (3) Pneumonia: Code(s): J18.9 - Pneumonia, unspecified organism Status: Acute Assessment and Plan: CT Chest as mentioned above. She is on zanabrutinib which can cause PNA and opportunistic infections. -Currently on ceftriaxone, doxycycline and vancomycin -BCx NGTD -Urine antigens ordered Appreciate Pulmonary input. (4) Chronic obstructive pulmonary disease: Code(s): J44.9 - Chronic obstructive pulmonary disease, unspecified Status: Acute Assessment and Plan: CT Chest showing mild emphysema. She is on Anoro scheduled and Albuterol inhaler prn at home. No wheezing. -Prednisone started -Pulmicort Respules started -On Albuterol and Atrovent nebs; Anoro on hold. As above (5) Elevated troponin: Code(s): R77.8 - Other specified abnormalities of plasma proteins Status: Acute Assessment and Plan: Trop only mildly elevated to 0.037. [place] related to the respiratory failure and AFib/RVR. mildly elevated Trop not felt to be clinically significant. As above. (6) Diastolic dysfunction: Code(s): I51.89 - Other ill-defined heart diseases Status: Acute Assessment and Plan: Noted by Echo in May. Limited Echo showing no shunt. (7) Hyponatremia: Code(s): E87.1 - Hypo-osmolality and hyponatremia Status: Acute Assessment and Plan: Baseline Na normal last year but 128-136 last month. Na low on admission here and has dropped to 127. TSH normal here. No cortisol level but she is on steroids curerntly. Check Urine Na and Cr. Subjective Date/time seen: 06/23/22 08:30 Interval history: 87yo female former smoker with history of non-Hodgkin lymphoma, hypothyroidism, and newly detected COPD with evidence of chronic hypoxemic and hypercapnic respiratory failure during a recent hospitalization who presented to the emergency department from home for evaluation of low oxygen levels. Slept poorly last
[2022-06-23] MEDS: BUDESONIDE RESPULE NEB 0.5 MG/2 ML AMP INHALATION ×2 (08:54→20:54)
[2022-06-23] MEDS: SOTALOL HCL 40 MG TABLET PO ×2 (10:29→21:42)
[2022-06-23] MEDS: APIXABAN 2.5 MG TABLET PO ×2 (10:29→21:42)
[2022-06-23] MEDS: DOXYCYCLINE 100 MG/NS 100 ML 100 MG/100 ML BAG IVPB ×2 (10:30→22:59)
[2022-06-23] MEDS: predniSONE 20 MG TABLET 40 MG PO (10:30)
--- NOTE | 2022-06-23 15:20 | PM.PNCARD ---
Progress Note: A&P Assessment and Plan (1) Atrial fibrillation with rapid ventricular response: Code(s): I48.91 - Unspecified atrial fibrillation Status: Acute Assessment and Plan: Resolved, maintaining sinus rhythm on sotalol 40 mg twice daily. Continue apixaban 2.5 mg twice daily. Potassium and magnesium stable. QT corrected 430 milliseconds, stable thus far. Repeat ECG after next sotalol dose. Continue telemetry. Monitor for ventricular tachyarrhythmias/torsades. She will need to complete 5 total doses last being tomorrow morning with repeat ECG thereafter. QTC corrected stable stable for discharge from cardiac perspective pertaining to AFib and sotalol loading. Monitor for bleeding. (2) Encounter for monitoring sotalol therapy: Code(s): Z51.81 - Encounter for therapeutic drug level monitoring; Z79.899 - Other half-way (current) drug therapy Status: Acute Assessment and Plan: As above. QTC acceptable thus far 430 milliseconds. Repeat ECG after next sotalol dose. Explained to patient and her daughter. They verbalized understanding and agreed with plan of care. (3) Elevated troponin: Code(s): R77.8 - Other specified abnormalities of plasma proteins Status: Acute Assessment and Plan: Stable, no acute issues at this time. Note in setting of AFib and acute on chronic hypoxic respiratory failure. (4) Chronic respiratory failure with hypoxia and hypercapnia: Code(s): J96.11 - Chronic respiratory failure with hypoxia; J96.12 - Chronic respiratory failure with hypercapnia Status: Acute Assessment and Plan: Appreciate pulmonology involvement and recommendations. Continue IV antibiotics, bronchodilator therapy, O2 supplementation. (5) Pneumonia: Code(s): J18.9 - Pneumonia, unspecified organism Status: Acute Assessment and Plan: Continue IV antibiotics, bronchodilator therapy, O2 supplementation. Remains on Airvo. Subjective Date/time seen: Date of service: 06/23/22 15:20 Follow-up for atrial fibrillation, sotalol loading Patient feels reasonably well. Does not tolerate CPAP tolerating Airvo. Denies chest pain or palpitations. Maintaining sinus rhythm on sotalol. QTC stable by ECG. No ventricular arrhythmias. Daughter at bedside. Review of Systems Review of Systems: Remainder of the review of systems is otherwise negative aside from that noted in the HPI. All systems reviewed & are unremarkable except as noted in HPI and below Constitutional: Constitutional: Reports as per HPI and Reports no additional constitutional complaints Eyes: Eyes: Reports as per HPI and Reports no additional eye complaints ENT: Reports system reviewed and no additional complaints, except as documented and Reports as per HPI Cardiovascular: Cardiovascular: Reports as per HPI and Reports no additional cardiovascular complaints Respiratory: Respiratory: Reports as per HPI and Reports no additional respiratory complaints Gastrointestinal: Gastrointestinal: Reports as per HPI and Reports no additional gastrointestinal complaints Genitourinary: Genitourinary: Reports as per HPI Musculoskeletal: Musculoskeletal: Reports no additional musculoskeletal complaints and Reports as per HPI Integumentary/Breasts: Skin/Breast: Reports system reviewed and no additional complaints, except as docu and Reports as per HPI Neurologic: Reports system reviewed and no additional complaints, except as documented and Reports as per HPI Psychiatric: Psychiatric: Reports no additional psychiatric complaints and Reports as per HPI Endocrine: Endocrine: Reports no additional endocrine complaints and Reports as per HPI Hematologic/Lymphatic: Hematologic/Lymphatic: Reports no additional hematologic/lymphatic complaints and Reports as per HPI Allergic/Immunologic: Allergic/Immunologic: Reports no additional allergic/immunologic complaints and Reports as per HPI Exam Narrati
--- NOTE | 2022-06-23 19:14 | ECG_ITS ---
Measurements Intervals [place] Rate: 57 P: 63 MO: 168 QRS: 22 QRSD: 72 T: 36 QT: 434 QTc: 424 Interpretive Statements SINUS BRADYCARDIA LOW QRS VOLTAGE IN EXTREMITY LEADS SEPTAL MYOCARDIAL INFARCTION, OF INDETERMINATE AGE ABNORMAL ECG COMPARED TO ECG 06/23/2022 01:09:28 NO SIGNIFICANT CHANGE Electronically Signed On 06-24-2022 14:42:47 CLERICAL AND OFFICE SUPPORT WORKERS by Jc Lafleur M.D.
[2022-06-23 19:47] LABS: Sodium 128 mmol/L (137-145)
[2022-06-24] VITALS (30 sets, daily range): BP systolic 111–128; BP diastolic 48–87; PULSE 50–96; RESP 17–24; TEMP 36.2–37.1; O2SAT 86–95
[2022-06-24] MEDS: IPRATROPIUM BR 0.02% INH SOLN 0.5 MG/2.5 ML VIAL INHALATION ×4 (01:26→21:03)
[2022-06-24] MEDS: ALBUTEROL SULFATE NEB 2.5 MG/3 ML INH INHALATION ×4 (01:26→21:03)
[2022-06-24 02:47] LABS: Creatinine Urine 67.3 mg/dL
[2022-06-24 02:59] LABS: Sodium Urine Random 23 meq/L
--- NOTE | 2022-06-24 03:00 | ECG_ITS ---
Measurements Intervals [place] Rate: 53 P: 64 DE: 167 QRS: 13 QRSD: 76 T: 41 QT: 424 QTc: 399 Interpretive Statements SINUS BRADYCARDIA LOW-VOLTAGE QRS IN PRECORDIAL LEADS SEPTAL INFARCTION, AGE INDETERMINATE ABNORMAL ECG COMPARED TO ECG 06/23/2022 20:58:55 NO SIGNIFICANT CHANGES Electronically Signed On 06-24-2022 14:45:08 CLOTH BLEACHING RANGE BACK TENDER by Jc Lafleur M.D.
[2022-06-24 05:20] LABS: Potassium 4.5 mmol/L (3.4-5.0)
[2022-06-24 05:26] LABS: Anion Gap 0 mmol/L (8-16); Blood Urea Nitrogen 30 mg/dL (7-17); Calcium 7.8 mg/dL (8.4-10.2); Carbon Dioxide 33 mmol/L (22-30); Chloride 100 mmol/L (98-107); Estimated CRCL calculation 37 ml/min; Estimated Glomerular Filt Rate > 60; Glucose 87 mg/dL (65-110); Magnesium 2.1 mg/dL (1.6-2.3); Sodium 133 mmol/L (137-145)
[2022-06-24] MEDS: LEVOTHYROXINE SODIUM 125 MCG TABLET PO (06:17)
[2022-06-24] MEDS: BUDESONIDE RESPULE NEB 0.5 MG/2 ML AMP INHALATION ×2 (08:33→21:02)
[2022-06-24] MEDS: SOTALOL HCL 40 MG TABLET PO ×2 (09:19→20:04)
[2022-06-24] MEDS: APIXABAN 2.5 MG TABLET PO ×2 (09:20→20:04)
[2022-06-24] MEDS: predniSONE 20 MG TABLET 40 MG PO (09:20)
[2022-06-24] MEDS: polyethylene glycoL 3350 17 GM POWD.PACK PO (09:21)
--- NOTE | 2022-06-24 09:27 | PM.IMPN ---
Progress Note: A&P Assessment and Plan (1) Acute on chronic respiratory failure with hypoxia and hypercapnia: Code(s): J96.21 - Acute and chronic respiratory failure with hypoxia; J96.22 - Acute and chronic respiratory failure with hypercapnia Status: Acute Assessment and Plan: The patient presented to the ED from home for evaluation of hypoxia (64% on her 3 L). She is chronically on home O2 at 3L. The patient was asymptomatic but family noticed SOB with minimal activity and conversational dyspnea. ABG on a non-rebreather showed 7.34/59.5/63 on 8L. She was started on bipap and admitted to IMU. Full Code -Was weaned to HFNC during the day and BiPAP at night -Chest x-ray shows diffuse lung disease which could be pneumonia and/or pulmonary edema. -Influenza, RSV and COVID negative -She is afebrile and WBC about normal. Empiric abx started. -Echo from 05/28 showing EF 65% and grade I diastolic dysfunction. Limited Echo here showing no shunt by bubble -CTA showing no PE but small bilateral pleural effusions with atelectasis and possibly mild pulm edema. BNP 5000 -Lasix 20mg IV x2 given on 06/21 with good UOP. -Prednisone started Clinically better and able to be weaned to HFNC during the day. Refusing BiPAP at night now. Continue to wean O2 as tolerated. Continue IV abx. Appreciate pulmonary input. Add lasix IV low dose (2) Atrial fibrillation with rapid ventricular response: Code(s): I48.91 - Unspecified atrial fibrillation Status: Acute Assessment and Plan: In the ED, patient developed new onset AFib with RVR. She was started on amiodarone. She was asymptomatic -Amio changed to Sotalol -She converted to NSR around 2pm on 06/22/22 -Sotalol dose decreased due to bradycardia. -[id number] - 3 (age, female) -TSH normal. CTA negative for PE -Consider acute diastolic CHF with pulm edema and elevated BNP resulting from the RVR Appreciate Cardiology input. Continue Sotalol. Eliquis started as well. Monitor on tele. Consider ischemia evaluation to explain the resp failure and new onset AFib. Add lasix and monitor (3) Pneumonia: Code(s): J18.9 - Pneumonia, unspecified organism Status: Acute Assessment and Plan: CT Chest as mentioned above. She is on zanabrutinib which can cause PNA and opportunistic infections. -Currently on ceftriaxone, doxycycline and vancomycin -UA is normal. Chest imaging as above. BCx NGTD -Urine antigens ordered Appreciate Pulmonary input. (4) Chronic obstructive pulmonary disease: Code(s): J44.9 - Chronic obstructive pulmonary disease, unspecified Status: Acute Assessment and Plan: CT Chest showing mild emphysema. She is on Anoro scheduled and Albuterol inhaler prn at home. No wheezing. -Prednisone started -Pulmicort Respules started -On Albuterol and Atrovent nebs; Anoro on hold. As above (5) Elevated troponin: Code(s): R77.8 - Other specified abnormalities of plasma proteins Status: Acute Assessment and Plan: Trop only mildly elevated to 0.037. [place] related to the respiratory failure and AFib/RVR. mildly elevated Trop not felt to be clinically significant. As above. (6) Diastolic dysfunction: Code(s): I51.89 - Other ill-defined heart diseases Status: Acute Assessment and Plan: Noted by Echo in May. Limited Echo showing no shunt. (7) Hyponatremia: Code(s): E87.1 - Hypo-osmolality and hyponatremia Status: Acute Assessment and Plan: Baseline Na normal last year but 128-136 last month. Na low on admission here and has dropped to 127. TSH normal here. No cortisol level but she is on steroids currently. Rojelio 23 with UCr 67 and FENa 0.2%. Na better today at 133. Moniotr on lasix. Subjective Date/time seen: 06/24/22 09:27 Interval history: 87yo female former smoker with history of non-Hodgkin lymphoma, hypothyroidism, and newly detected COPD with evidence of chronic h
--- NOTE | 2022-06-24 11:30 | ECG_ITS ---
Measurements Intervals [place] Rate: 54 P: 77 [place]: 159 QRS: 24 QRSD: 78 T: 29 QT: 427 QTc: 405 Interpretive Statements SINUS BRADYCARDIA POSSIBLE LEFT ATRIAL ENLARGEMENT LOW QRS VOLTAGE SEPTAL MYOCARDIAL INFARCTION, OF INDETERMINATE AGE ABNORMAL ECG COMPARED TO ECG 06/24/2022 00:03:24 NO SIGNIFICANT CHANGES Electronically Signed On 06-24-2022 14:55:52 CROZE CUTTER HELPER by Jc Lafleur M.D.
--- NOTE | 2022-06-24 14:08 | PM.PNCARD ---
Progress Note: A&P Assessment and Plan (1) Atrial fibrillation with rapid ventricular response: Code(s): I48.91 - Unspecified atrial fibrillation Status: Acute Assessment and Plan: Resolved, maintaining sinus rhythm on sotalol 40 mg twice daily. Continue apixaban 2.5 mg twice daily. Potassium and magnesium stable. QT corrected 405 milliseconds, stable thus far today. Repeat ECG after next sotalol dose this evening which will be her 5th dose. Continue telemetry. Monitor for ventricular tachyarrhythmias/torsades. stable thus far. Monitor for bleeding. 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 QTC acceptable thus far 405 milliseconds. Repeat ECG after next sotalol dose. Explained to patient and her daughter. They verbalized understanding and agreed with plan of care. Continue sotalol 40 mg twice daily. (3) Elevated troponin: Code(s): R77.8 - Other specified abnormalities of plasma proteins Status: Acute Assessment and Plan: Stable, no acute issues at this time. Note in setting of AFib and acute on chronic hypoxic respiratory failure. (4) Chronic respiratory failure with hypoxia and hypercapnia: Code(s): J96.11 - Chronic respiratory failure with hypoxia; J96.12 - Chronic respiratory failure with hypercapnia Status: Acute Assessment and Plan: Appreciate pulmonology involvement and recommendations. Continue IV antibiotics, bronchodilator therapy, O2 supplementation. Months able to wean O2 supplementation transition to oral Lasix as her clinical volume status appears to be nearing euvolemia. Check chest x-ray. (5) Pneumonia: Code(s): J18.9 - Pneumonia, unspecified organism Status: Acute Assessment and Plan: Continue IV antibiotics, bronchodilator therapy, O2 supplementation. Remains on Airvo. Wean O2 as tolerated. PICC line anticipated due to access issues. Subjective Date/time seen: Date of service:06/24/22 14:08 Follow-up for atrial fibrillation acute respiratory failure maintaining sinus rhythm on sotalol. Remains on Airvo. She denies shortness of breath at rest, chest pain or palpitations. No new issues overnight. Daughter at bedside. Discussed plan of care and clinical status. All questions answered to her satisfaction. PICC line anticipated dimension. Review of Systems Review of Systems: All systems reviewed & are unremarkable except as noted in HPI and below Constitutional: Constitutional: Reports as per HPI and Reports no additional constitutional complaints Eyes: Eyes: Reports as per HPI and Reports no additional eye complaints ENT: Reports system reviewed and no additional complaints, except as documented and Reports as per HPI Cardiovascular: Cardiovascular: Reports as per HPI and Reports no additional cardiovascular complaints Respiratory: Respiratory: Reports as per HPI and Reports no additional respiratory complaints Gastrointestinal: Gastrointestinal: Reports as per HPI and Reports no additional gastrointestinal complaints Genitourinary: Genitourinary: Reports as per HPI Musculoskeletal: Musculoskeletal: Reports no additional musculoskeletal complaints and Reports as per HPI Integumentary/Breasts: Skin/Breast: Reports system reviewed and no additional complaints, except as docu and Reports as per HPI Neurologic: Reports system reviewed and no additional complaints, except as documented and Reports as per HPI Psychiatric: Psychiatric: Reports no additional psychiatric complaints and Reports as per HPI Endocrine: Endocrine: Reports no additional endocrine complaints and Reports as per HPI Hematologic/Lymphatic: Hematologic/Lymphatic: Reports no additional hematologic/lymphatic complaints and Reports as per HPI Allergic/Immunologic:
[2022-06-24] MEDS: FUROSEMIDE INJ 40 MG/4 ML VIAL 20 MG IV PUSH (16:04)
[2022-06-24] MEDS: DOXYCYCLINE 100 MG/NS 100 ML 100 MG/100 ML BAG IVPB (17:04)
[2022-06-24] MEDS: CENTRAL LINE FLUSH 10 ML IV PUSH ×2 (17:05→20:05)
[2022-06-24] MEDS: CENTRAL LINE FLUSH 20 ML IV PUSH (17:06)
[2022-06-24 17:42] LABS: Vancomycin Trough 7.5 ug/mL (10.0-20.0)
--- NOTE | 2022-06-24 22:00 | ECG_ITS ---
Measurements Intervals [place] Rate: 53 P: 60 [place]: 167 QRS: 25 QRSD: 84 T: 31 QT: 432 QTc: 406 Interpretive Statements SINUS BRADYCARDIA POSSIBLE LEFT ATRIAL ENLARGEMENT [-0.1mV P WAVE IN V1/V2] LOW QRS VOLTAGE IN EXTREMITY LEADS [QRS DEFLECTION < 0.5 mV IN LIMB LEADS] SEPTAL MYOCARDIAL INFARCTION [40+ ms Q WAVE IN V1/V2], OF INDETERMINATE AGE COMPARED TO ECG 06/24/2022 11:42:28 NO SIGNIFICANT CHANGES Electronically Signed On 06-25-2022 12:40:43 BRICK SETTER by Simba Jackson M.D.
[2022-06-25] VITALS (30 sets, daily range): BP systolic 102–135; BP diastolic 54–62; PULSE 48–68; RESP 18–23; TEMP 36.3–37; O2SAT 89–96
[2022-06-25] MEDS: IPRATROPIUM BR 0.02% INH SOLN 0.5 MG/2.5 ML VIAL INHALATION ×4 (01:58→20:19)
[2022-06-25] MEDS: ALBUTEROL SULFATE NEB 2.5 MG/3 ML INH INHALATION ×4 (01:58→20:19)
[2022-06-25] MEDS: DOXYCYCLINE 100 MG/NS 100 ML 100 MG/100 ML BAG IVPB ×2 (03:41→18:33)
[2022-06-25] MEDS: CENTRAL LINE FLUSH 10 ML IV PUSH ×4 (05:44→20:27)
[2022-06-25] MEDS: LEVOTHYROXINE SODIUM 125 MCG TABLET PO (05:44)
[2022-06-25 06:35] LABS: Anion Gap -1 mmol/L (8-16); Blood Urea Nitrogen 27 mg/dL (7-17); Calcium 8.1 mg/dL (8.4-10.2); Carbon Dioxide 38 mmol/L (22-30); Chloride 94 mmol/L (98-107); Estimated CRCL calculation 37 ml/min; Estimated Glomerular Filt Rate > 60; Glucose 79 mg/dL (65-110); Magnesium 1.9 mg/dL (1.6-2.3); Potassium 4.3 mmol/L (3.4-5.0); Sodium 131 mmol/L (137-145)
[2022-06-25] MEDS: FUROSEMIDE INJ 40 MG/4 ML VIAL 20 MG IV PUSH ×2 (09:07→18:35)
[2022-06-25] MEDS: SOTALOL HCL 40 MG TABLET PO ×2 (09:07→20:26)
[2022-06-25] MEDS: polyethylene glycoL 3350 17 GM POWD.PACK PO (09:07)
[2022-06-25] MEDS: predniSONE 20 MG TABLET 40 MG PO (09:08)
[2022-06-25] MEDS: APIXABAN 2.5 MG TABLET PO ×2 (09:08→20:26)
[2022-06-25] MEDS: BUDESONIDE RESPULE NEB 0.5 MG/2 ML AMP INHALATION ×2 (09:24→20:19)
--- NOTE | 2022-06-25 10:03 | PM.PNCARD ---
Progress Note: A&P Assessment and Plan (1) Atrial fibrillation with rapid ventricular response: Code(s): I48.91 - Unspecified atrial fibrillation Status: Acute Plan 87-year-old lady with: Paroxysmal AFib probably driven by chronic respiratory insufficiency/lung disease. She converted to sinus rhythm in his fortunately maintaining sinus rhythm with modest dose of sotalol. For now I would continue this without adjustment. Simba Jackson MD [facility] Subjective Date/time seen: Date of service: 06/25/22 10:03 Interval history: Follow-up visit in this 87-year-old lady with: Paroxysmal atrial fibrillation seen last Saturday evening in consultation. Patient was successfully converted to sinus rhythm with sotalol after the 1st dosage. She was bradycardic after conversion and dosage was reduced to 40 mg q.12 hours. She has maintained sinus rhythm/sinus bradycardia all weekend. No evidence of proarrhythmia. Patient does have chronic lung disease and history of previous thoracic lymphoma being treated elsewhere. Exam Const: General: no acute distress Other: Pleasant elderly lady receiving a nebulizer treatment otherwise no distress HENMT: Mouth: Yes moist mucous membranes Eyes: Sclera: sclerae normal Neck: Neck: supple and no JVD Resp: Effort & Inspection: normal respiratory effort Other: Scattered rhonchi Cardio: Rate: regular rate Rhythm: regular rhythm GI: GI Palp: Yes Soft to palpation Auscultation: normal bowel sounds Skin: General skin exam: normal color Neuro: Other: Alert and oriented x3 Objective Data Vital Signs Vital Signs: Vital Signs - 24 hr 06/24/22 12:38 06/24/22 12:00 06/24/22 12:00 Temperature 36.7 C Pulse Rate 60 57 L Respiratory Rate 21 H Blood Pressure 119/48 L Pulse Oximetry 86 L 94 Oxygen Delivery High Flow Therapy with Na Oxygen Flow Rate 60 Fraction of Inspired Oxygen 90 06/24/22 13:28 06/24/22 14:00 06/24/22 14:15 Temperature Pulse Rate 60 59 L Respiratory Rate 24 H 18 Blood Pressure Pulse Oximetry 94 92 Oxygen Delivery High Flow Therapy with Na Oxygen Flow Rate 60 Fraction of Inspired Oxygen 95 06/24/22 14:00 06/24/22 16:00 06/24/22 16:00 Temperature 37.1 C Pulse Rate 59 L 58 L 57 L Respiratory Rate 20 Blood Pressure 128/61 Pulse Oximetry 92 Oxygen Delivery Oxygen Flow Rate Fraction of Inspired Oxygen 06/24/22 16:00 06/24/22 18:00 06/24/22 20:04 Temperature Pulse Rate 63 59 L 57 L Respiratory Rate Blood Pressure Pulse Oximetry 93 Oxygen Delivery High Flow Therapy with Na Oxygen Flow Rate 60 Fraction of Inspired Oxygen 95 06/24/22 20:34 06/24/22 20:00 06/24/22 20:00 Temperature 37.1 C Pulse Rate 59 L 56 L Respiratory Rate 20 Blood Pressure 116/87 Pulse Oximetry 95 95 Oxygen Delivery High Flow Therapy with Na Oxygen Flow Rate 60 Fraction of Inspired Oxygen 95 06/24/22 21:03 06/24/22 21:11 06/24/22 21:15 Temperature Pulse Rate 66 69 Respiratory Rate 20 20 Blood Pressure Pulse Oximetry 93 Oxygen Delivery High Flow Therapy with Na Oxygen Flow Rate 60 Fraction of Inspired Oxygen 95 06/24/22 23:13 06/24/22 23:22 06/24/22 22:00 Temperature 37.1 C Pulse Rate 54 L 96 53 L Respiratory Rate 20 17 Blood Pressure 111/85 Pulse Oximetry 95 91 Oxygen Delivery BiPAP Oxygen Flow Rate Fraction of Inspired Oxygen 06/25/22 00:00 06/25/22 00:00 06/25/22 01:59 Temperature Pulse Rate 50 L 59 L Respiratory Rate 21 H Blood Pressure Pulse Oximetry 95 Oxygen Delivery BiPAP Oxygen Flow Rate Fraction of Inspired Oxygen 55 06/25/22 01:59 06/25/22 02:08 06/25/22 02:00 Temperature Pulse Rate 49 L 58 L 48 L Respiratory Rate 22 H 23 H Blood Pressure Pulse Oximetry 92 Oxygen Delivery BiPAP Oxygen Flow Rate Fraction of Inspired Oxygen 06/25/22 03:31 06/25/22 04:00 06/07
--- NOTE | 2022-06-25 10:49 | PM.IMPN ---
Progress Note: A&P Assessment and Plan (1) Acute on chronic respiratory failure with hypoxia and hypercapnia: Code(s): J96.21 - Acute and chronic respiratory failure with hypoxia; J96.22 - Acute and chronic respiratory failure with hypercapnia Status: Acute Assessment and Plan: The patient presented to the ED from home for evaluation of hypoxia (64% on her 3 L). She is chronically on home O2 at 3L. The patient was asymptomatic but family noticed SOB with minimal activity and conversational dyspnea. ABG on a non-rebreather showed 7.34/59.5/63 on 8L. She was started on bipap and admitted to IMU. Full Code -Was weaned to HFNC during the day and BiPAP at night -Chest x-ray shows diffuse lung disease which could be pneumonia and/or pulmonary edema. -Influenza, RSV and COVID negative -She is afebrile and WBC about normal. Empiric abx started. -Echo from 05/28 showing EF 65% and grade I diastolic dysfunction. Limited Echo here showing no shunt by bubble -CTA showing no PE but small bilateral pleural effusions with atelectasis and possibly mild pulm edema. BNP 5000 -Lasix 20mg IV x2 given on 06/21 with good UOP. -Prednisone started. Lasix IV started 06/24 Clinically better and able to be weaned to HFNC during the day. Toelrating BiPAP at night for a few hours. Continue to wean O2 as tolerated. Continue IV abx. Appreciate pulmonary input. (2) Atrial fibrillation with rapid ventricular response: Code(s): I48.91 - Unspecified atrial fibrillation Status: Acute Assessment and Plan: In the ED, patient developed new onset AFib with RVR. She was started on amiodarone. She was asymptomatic -Amio changed to Sotalol -She converted to NSR around 2pm on 06/22/22 -Sotalol dose decreased due to bradycardia. -[id number] - 3 (age, female) -TSH normal. CTA negative for PE -Consider acute diastolic CHF with pulm edema and elevated BNP resulting from the RVR Appreciate Cardiology input. Continue Sotalol. Eliquis started as well. Monitor on tele. Consider ischemia evaluation to explain the resp failure and new onset AFib when she is able. Continue to monitor on tele (3) Pneumonia: Code(s): J18.9 - Pneumonia, unspecified organism Status: Acute Assessment and Plan: CT Chest as mentioned above. She is on zanabrutinib which can cause PNA and opportunistic infections. -Influenza, RSV and COVID negative -Currently on ceftriaxone, doxycycline and vancomycin -UA is normal. Chest imaging as above. BCx NGTD -Urine antigens ordered Appreciate Pulmonary input. (4) Chronic obstructive pulmonary disease: Code(s): J44.9 - Chronic obstructive pulmonary disease, unspecified Status: Acute Assessment and Plan: CT Chest showing mild emphysema. She is on Anoro scheduled and Albuterol inhaler prn at home. No wheezing. -Prednisone started -Pulmicort Respules started -On Albuterol and Atrovent nebs; Anoro on hold. As above (5) Elevated troponin: Code(s): R77.8 - Other specified abnormalities of plasma proteins Status: Acute Assessment and Plan: Trop only mildly elevated to 0.037. [place] related to the respiratory failure and AFib/RVR. Mildly elevated Trop not felt to be clinically significant. As above. (6) Diastolic dysfunction: Code(s): I51.89 - Other ill-defined heart diseases Status: Acute Assessment and Plan: Noted by Echo in May. Limited Echo showing no shunt. (7) Hyponatremia: Code(s): E87.1 - Hypo-osmolality and hyponatremia Status: Acute Assessment and Plan: Baseline Na normal last year but 128-136 last month. Na low on admission here and has dropped to 127. TSH normal here. No cortisol level but she is on steroids currently. oRjelio 23 with UCr 67 and FENa 0.2%. Na better today at 131. Follow Subjective Date/time seen: 06/25/22 10:49 Interval history: 87yo female former smoker with history of NHL and newly detected
--- NOTE | 2022-06-25 17:44 | PM.PNPUL ---
Progress Note: A&P Assessment and Plan (1) Acute on chronic respiratory failure with hypoxia and hypercapnia: Code(s): J96.21 - Acute and chronic respiratory failure with hypoxia; J96.22 - Acute and chronic respiratory failure with hypercapnia Status: Acute Assessment and Plan: This patient had increased hypercapnic hypoxemic respiratory failure with bilateral infiltrates and a moderate size effusion on the right side. 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 She remains on Rocephin, doxycycline and vancomycin without an organism identified as a cause of pneumonia. She has not been able to have O2 weaned, however feels better, not having bursts of rapid atrial fibrillation, and is less short of breath. Will wean O2 when able, for now monitor saturation and try diuresis. SHe benefots from having prednisone 40 mg a day, will continue. (2) Pneumonia: Code(s): J18.9 - Pneumonia, unspecified organism Status: Acute Assessment and Plan: continues on IV ceftriaxone , doxycycline and vancomycin; she has no sputum for testing. She had urine antigens for pulmonary pathogens; pneumococcus, Legionella, on Jun 21 however no results are in the system, and this appears to have been cancelled, not clear why. She is at risk for Pneumocystis while using zanabrutinib She is not on prophylaxis for PJP now, but is at high risk. I will start Bactrim DS 1 a day at discharge for PJP prophylaxis. She is negative for Influenza A, B, RSV, SARS-Co-V-2. (3) Chronic obstructive pulmonary disease: Code(s): J44.9 - Chronic obstructive pulmonary disease, unspecified Status: Acute Assessment and Plan: Continue maintenance COPD Rx with Anoro, rescue lev-albuterol Stop ipratropium with LAMA in Anoro; umeclidinium is same class as ipratropium. Continue inhaled steroid through nebulizer, budesonide BID Plan O2 to maintain saturation above 90%. She was on BiPAP 04/10 with 70%, now AirVo with increased fraction of inspired O2 90%, more comfortable. Her saturation is 96-97%. She does not need this much oxygen. The Airvo is giving her a break from continuous BiPAP which causes break down in skin on her face. It also allows her eat and drink. Continue empiric antibiotics to cover opportunistic infection and community-acquired pathogens. Echo with bubble Jun 18 is negative for R -> L shift. Methemoglobin is normal. SARS-Co-V-2 was normal May 30 & Feb 16, so this is not COVID. Empiric steroids for COPD with pneumonia. Time Spent With Patient Time with patient: 15 - 25 minutes Subjective Date/time seen: 06/25/22 17:44 Interval history: Hospital follow up : Cindy Estrada is an 87-year-old woman admitted with hypoxemia without distress. She is sitting up in bed, son is at the bedside. She is hospital day 5, admitted Feb 16. 06/23 : echo with bubble was negative for intra-cardiac shunt. 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 Her son also tells me she was on allopurinol. This was to prevent tumor lysis. She is in Room 210, on AirVo with stable saturation, 94%. She is on 90%, 60 L/min. She feels better compared to admission. She has an eye appointment for wet macular degeneration, and an oncology appointment coming up soon for lymphoma. HISTORY: She had an admission recently in May with low O2 with a new diagnosis of COPD with hypercapnia and hypoxemia, placed on O2, discharged home on O2 and a steroid taper with Anoro and albuterol inhaler to use Q 4 hours p.r.n.
[2022-06-26] VITALS (29 sets, daily range): BP systolic 108–124; BP diastolic 50–62; PULSE 42–114; RESP 16–28; TEMP 36.2–36.7; O2SAT 90–97
[2022-06-26] MEDS: ALBUTEROL SULFATE NEB 2.5 MG/3 ML INH INHALATION ×4 (02:36→21:07)
[2022-06-26] MEDS: IPRATROPIUM BR 0.02% INH SOLN 0.5 MG/2.5 ML VIAL INHALATION ×4 (02:36→21:07)
[2022-06-26] MEDS: CENTRAL LINE FLUSH 10 ML IV PUSH ×4 (05:04→20:59)
[2022-06-26] MEDS: DOXYCYCLINE 100 MG/NS 100 ML 100 MG/100 ML BAG IVPB ×2 (05:04→16:30)
[2022-06-26] MEDS: LEVOTHYROXINE SODIUM 125 MCG TABLET PO (05:04)
[2022-06-26 06:40] LABS: Vancomycin Trough 16.3 ug/mL (10.0-20.0)
[2022-06-26] MEDS: polyethylene glycoL 3350 17 GM POWD.PACK PO ×2 (08:20→16:31)
[2022-06-26] MEDS: FUROSEMIDE INJ 40 MG/4 ML VIAL 20 MG IV PUSH ×2 (08:20→16:30)
[2022-06-26] MEDS: predniSONE 20 MG TABLET 40 MG PO (08:20)
[2022-06-26] MEDS: APIXABAN 2.5 MG TABLET PO ×2 (08:20→20:57)
[2022-06-26] MEDS: SOTALOL HCL 40 MG TABLET PO ×2 (08:21→20:58)
[2022-06-26] MEDS: BUDESONIDE RESPULE NEB 0.5 MG/2 ML AMP INHALATION ×2 (09:43→21:06)
--- NOTE | 2022-06-26 09:59 | PM.IMPN ---
Progress Note: A&P Assessment and Plan (1) Acute on chronic respiratory failure with hypoxia and hypercapnia: Code(s): J96.21 - Acute and chronic respiratory failure with hypoxia; J96.22 - Acute and chronic respiratory failure with hypercapnia Status: Acute Assessment and Plan: The patient presented to the ED from home for evaluation of hypoxia (64% on her 3 L). She is chronically on home O2 at 3L. The patient was asymptomatic but family noticed SOB with minimal activity and conversational dyspnea. ABG on a non-rebreather showed 7.34/59.5/63 on 8L. She was started on bipap and admitted to IMU. Full Code -Chest x-ray shows diffuse lung disease which could be pneumonia and/or pulmonary edema. -Influenza, RSV and COVID negative -She is afebrile and WBC about normal. Empiric abx started. -Echo from 05/28 showing EF 65% and grade I diastolic dysfunction. Limited Echo here showing no shunt by bubble -CTA showing no PE but small bilateral pleural effusions with atelectasis and possibly mild pulm edema. BNP 5000 -Lasix 20mg IV x2 given on 06/21 with good UOP. -Prednisone started. Lasix IV started 06/24 Clinically better and able to be weaned to HFNC during the day. Tolerating BiPAP at night. CXR reviewed personally and appears improved from admission (radiology feels about the same). Continue to wean O2 as tolerated. Continue IV abx. Appreciate pulmonary input. (2) Atrial fibrillation with rapid ventricular response: Code(s): I48.91 - Unspecified atrial fibrillation Status: Acute Assessment and Plan: In the ED, patient developed new onset AFib with RVR. She was started on amiodarone. She was asymptomatic -Amio changed to Sotalol -She converted to NSR around 2pm on 06/22/22 -Sotalol dose decreased due to bradycardia. -[id number] - 3 (age, female) -TSH normal. CTA negative for PE -Consider acute diastolic CHF with pulm edema and elevated BNP resulting from the RVR Appreciate Cardiology input. Maintaining NSR by tele. Continue Sotalol. Eliquis started as well. Monitor on tele. Consider ischemia evaluation to explain the resp failure and new onset AFib when she is able. Continue to monitor on tele. (3) Pneumonia: Code(s): J18.9 - Pneumonia, unspecified organism Status: Acute Assessment and Plan: CT Chest as mentioned above. She is on zanabrutinib which can cause PNA and opportunistic infections. -Influenza, RSV and COVID negative -Currently on ceftriaxone, doxycycline and vancomycin -UA is normal. Chest imaging as above. BCx NGTD -Urine antigens ordered -Repeat COVID swab Appreciate Pulmonary input. (4) Chronic obstructive pulmonary disease: Code(s): J44.9 - Chronic obstructive pulmonary disease, unspecified Status: Acute Assessment and Plan: CT Chest showing mild emphysema. She was on Anoro scheduled and Albuterol inhaler prn at home. -Prednisone started -Pulmicort Respules started -On Albuterol and Atrovent nebs; Anoro on hold. As above (5) Elevated troponin: Code(s): R77.8 - Other specified abnormalities of plasma proteins Status: Acute Assessment and Plan: Trop only mildly elevated to 0.037. [place] related to the respiratory failure and AFib/RVR. Mildly elevated Trop not felt to be clinically significant. As above. (6) Diastolic dysfunction: Code(s): I51.89 - Other ill-defined heart diseases Status: Acute Assessment and Plan: Noted by Echo in May. Limited Echo here showing no shunt. (7) Hyponatremia: Code(s): E87.1 - Hypo-osmolality and hyponatremia Status: Acute Assessment and Plan: Baseline Na normal last year but 128-136 last month. Na low on admission here and has dropped to 127. TSH normal here. No cortisol level but she is on steroids currently. Rojelio 23 with UCr 67 and FENa 0.2%. Na better yesterday at 131. Na pending. Follow Subjective Date/time seen: 06/26/22 09:59
[2022-06-26 11:44] LABS: Blood Urea Nitrogen 26 mg/dL (7-17); Calcium 8.2 mg/dL (8.4-10.2); Carbon Dioxide > 40 mmol/L (22-30); Chloride 92 mmol/L (98-107); Estimated CRCL calculation 37 ml/min; Estimated Glomerular Filt Rate > 60; Glucose 69 mg/dL (65-110); Magnesium 1.8 mg/dL (1.6-2.3); Sodium 132 mmol/L (137-145)
[2022-06-26 12:57] LABS: SARS-CoV-2 RNA PCR Negative
[2022-06-27] VITALS (29 sets, daily range): BP systolic 103–130; BP diastolic 45–57; PULSE 47–66; RESP 16–22; TEMP 36.1–36.9; O2SAT 90–98
--- NOTE | 2022-06-27 00:54 | PCRCNOTE ---
Apnea link ordered but pt unable to participate due to oxygen needs/demands at this time.
[2022-06-27] MEDS: ALBUTEROL SULFATE NEB 2.5 MG/3 ML INH INHALATION ×4 (02:59→22:12)
[2022-06-27] MEDS: DOXYCYCLINE 100 MG/NS 100 ML 100 MG/100 ML BAG IVPB ×2 (03:43→16:25)
[2022-06-27] MEDS: LEVOTHYROXINE SODIUM 125 MCG TABLET PO (05:11)
[2022-06-27] MEDS: CENTRAL LINE FLUSH 10 ML IV PUSH ×5 (05:11→21:07)
[2022-06-27 05:48] LABS: Basophils Percent Auto 0.5 % (0.2-1.2); Eosinophils Absolute Auto 0.1 K/mm3 (0-0.3); Eosinophils Percent Auto 0.7 % (0-4.4); Hematocrit 40.8 % (37.0-47.0); Hemoglobin 12.8 g/dL (12.0-15.0); Immature Granulocyte Percent A 1.2 % (0-0.5); Lymphocytes Absolute Auto 0.72 K/mm3 (0.9-3.2); Lymphocytes Percent Auto 8.7 % (18.3-44.2); Mean Corpuscular HGB Conc 31.4 g/dl (32-36); Mean Corpuscular Hemoglobin 28.6 pg (26-34); Mean Corpuscular Volume 91.3 fl (80-100); Mean Platelet Volume 9.9 fl (7.4-10.4); Monocytes Absolute Auto 0.4 K/mm3 (0.1-0.6); Neutrophils Absolute Auto 6.9 K/mm3 (1.3-6.7); Neutrophils Percent Auto 83.9 % (45.5-73.1); Platelet Count Result 585 k/mm3 (150-375); Red Blood Count 4.47 M/mm3 (4.2-5.4); White Blood Count 8.2 K/mm3 (4.5-10.0)
[2022-06-27 06:00] LABS: Albumin Level 2.6 g/dL (3.5-5.1); Blood Urea Nitrogen 27 mg/dL (7-17); Calcium 8.1 mg/dL (8.4-10.2); Carbon Dioxide > 40 mmol/L (22-30); Chloride 90 mmol/L (98-107); Estimated CRCL calculation 37 ml/min; Estimated Glomerular Filt Rate > 60; Glucose 60 mg/dL (65-110); Magnesium 1.8 mg/dL (1.6-2.3); Potassium 3.9 mmol/L (3.4-5.0); Sodium 131 mmol/L (137-145)
[2022-06-27] MEDS: APIXABAN 2.5 MG TABLET PO ×2 (08:20→21:02)
[2022-06-27] MEDS: predniSONE 20 MG TABLET 40 MG PO (08:20)
[2022-06-27] MEDS: SOTALOL HCL 40 MG TABLET PO (08:21)
[2022-06-27] MEDS: FUROSEMIDE INJ 40 MG/4 ML VIAL 20 MG IV PUSH ×2 (08:21→16:25)
[2022-06-27] MEDS: polyethylene glycoL 3350 17 GM POWD.PACK PO ×2 (08:22→17:35)
[2022-06-27] MEDS: BUDESONIDE RESPULE NEB 0.5 MG/2 ML AMP INHALATION ×2 (09:40→22:12)
--- NOTE | 2022-06-27 14:20 | PM.IMPN ---
Progress Note: A&P Assessment and Plan (1) Acute on chronic respiratory failure with hypoxia and hypercapnia: Code(s): J96.21 - Acute and chronic respiratory failure with hypoxia; J96.22 - Acute and chronic respiratory failure with hypercapnia Status: Acute Assessment and Plan: The patient presented to the ED from home for evaluation of hypoxia (64% on her 3 L). She is chronically on home O2 at 3L. The patient was asymptomatic but family noticed SOB with minimal activity and conversational dyspnea. ABG on a non-rebreather showed 7.34/59.5/63 on 8L. She was started on bipap and admitted to IMU. Full Code -Chest x-ray shows diffuse lung disease which could be pneumonia and/or pulmonary edema. -Influenza, RSV and COVID negative -She is afebrile and WBC about normal. pt is on iv doxycycline and iv rocephin and iv vancomycin -Echo from 05/28 showing EF 65% and grade I diastolic dysfunction. Limited Echo here showing no shunt by bubble -CTA showing no PE but small bilateral pleural effusions with atelectasis and possibly mild pulm edema. BNP 5000 -Pt started on Lasix iv bid (2) Atrial fibrillation with rapid ventricular response: Code(s): I48.91 - Unspecified atrial fibrillation Status: Acute Assessment and Plan: In the ED, patient developed new onset AFib with RVR. She was started on amiodarone. She was asymptomatic -Amiodarone changed to Sotalol -She converted to NSR around 2pm on 06/22/22 -Sotalol dose decreased due to bradycardia. HR is around 50s (3) Pneumonia: Code(s): J18.9 - Pneumonia, unspecified organism Status: Acute Assessment and Plan: CT Chest as mentioned above. She is on zanabrutinib which can cause PNA and opportunistic infections. -Influenza, RSV and COVID negative -Currently on ceftriaxone, doxycycline and vancomycin - BC negative to date - Pulmonary on board (4) Chronic obstructive pulmonary disease: Code(s): J44.9 - Chronic obstructive pulmonary disease, unspecified Status: Acute Assessment and Plan: CT Chest showing mild emphysema. She was on Anoro scheduled and Albuterol inhaler prn at home. -Prednisone started -Pulmicort Respules started -On Albuterol and Atrovent nebs (5) Elevated troponin: Code(s): R77.8 - Other specified abnormalities of plasma proteins Status: Acute Assessment and Plan: Trop only mildly elevated to 0.037. [place] related to the respiratory failure and AFib/RVR. Mildly elevated Trop not felt to be clinically significant. As above. (6) Diastolic dysfunction: Code(s): I51.89 - Other ill-defined heart diseases Status: Acute Assessment and Plan: Noted by Echo in May. Limited Echo here showing no shunt. (7) Hyponatremia: Code(s): E87.1 - Hypo-osmolality and hyponatremia Status: Acute Assessment and Plan: Baseline Na normal last year but 128-136 last month. Na low on admission here and has dropped to 127. now 131 Subjective Date/time seen: 06/27/22 14:20 Interval history: 87yo female former smoker with history of NHL and newly detected COPD with evidence of chronic hypoxemic and hypercapnic respiratory failure during a recent hospitalization who presented to the ED from home for evaluation of hypoxia Patient was able to tolerate BiPAP overnight. She is currently on Airvo at 60 L at 85% FiO2. Pt states she smoked heavily and was a passive smoker for most for her life. 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 Pt feels better today admitted for chronic hypoxemic and hypercapnic respiratory failure, COPD and Pneumonia/ Pulmonary edema Review of Systems Review of Systems: SOB at rest +wheeze Exam Narrative: General: Elderly lady on Airvo at 60 L at 85% FiO2. Chest - decreased BS in the bases CV - RRR S1/S2. Abd - Soft, NT/ND, Positive BS Psych - Nml mood and affect Skin - Warm and dry O
[2022-06-27] MEDS: SOTALOL HCL 20 MG TABLET PO (21:04)
[2022-06-28] VITALS (34 sets, daily range): BP systolic 106–129; BP diastolic 46–60; PULSE 47–62; RESP 15–24; TEMP 36.1–36.6; O2SAT 88–97
[2022-06-28] MEDS: ALBUTEROL SULFATE NEB 2.5 MG/3 ML INH INHALATION ×4 (02:02→19:51)
[2022-06-28] MEDS: DOXYCYCLINE 100 MG/NS 100 ML 100 MG/100 ML BAG IVPB (04:59)
[2022-06-28 05:30] LABS: Hematocrit 41.9 % (37.0-47.0); Hemoglobin 13.5 g/dL (12.0-15.0); Mean Corpuscular HGB Conc 32.2 g/dl (32-36); Mean Corpuscular Hemoglobin 29.9 pg (26-34); Mean Corpuscular Volume 92.9 fl (80-100); Mean Platelet Volume 9.5 fl (7.4-10.4); Platelet Count Result 555 k/mm3 (150-375); Red Blood Count 4.51 M/mm3 (4.2-5.4); White Blood Count 8.1 K/mm3 (4.5-10.0)
[2022-06-28 05:42] LABS: Blood Urea Nitrogen 26 mg/dL (7-17); Calcium 8.3 mg/dL (8.4-10.2); Carbon Dioxide > 40 mmol/L (22-30); Chloride 90 mmol/L (98-107); Estimated CRCL calculation 37 ml/min; Estimated Glomerular Filt Rate > 60; Glucose 73 mg/dL (65-110); Potassium 4.1 mmol/L (3.4-5.0); Sodium 134 mmol/L (137-145)
--- NOTE | 2022-06-28 06:48 | PC.NURSE ---
Addendum entered by Quan Richard RN 06/28/22 07:19: RT contacted regarding O2 SATS. Original Note: Pt ambulated to chair with SBA. Patient's desaturated to 84% but was asymptomatic. NRB placed to help patient recover. Will continue to monitor.
--- NOTE | 2022-06-28 07:05 | PC.NURSE ---
I MONITORED THE CHARTING AND MEDICATION DISPENSING FOR THIS PATIENT DONE BY ALETHA SOMMERS RN. I AGREE WITH EVERYTHING.
[2022-06-28] MEDS: LEVOTHYROXINE SODIUM 125 MCG TABLET PO (07:17)
[2022-06-28] MEDS: BUDESONIDE RESPULE NEB 0.5 MG/2 ML AMP INHALATION ×2 (07:55→19:51)
[2022-06-28] MEDS: polyethylene glycoL 3350 17 GM POWD.PACK PO ×2 (08:55→17:13)
[2022-06-28] MEDS: predniSONE 20 MG TABLET 40 MG PO (08:56)
[2022-06-28] MEDS: FUROSEMIDE INJ 40 MG/4 ML VIAL 20 MG IV PUSH ×2 (08:56→17:13)
[2022-06-28] MEDS: SOTALOL HCL 20 MG TABLET PO ×2 (08:56→20:18)
[2022-06-28] MEDS: APIXABAN 2.5 MG TABLET PO ×2 (08:56→20:18)
--- NOTE | 2022-06-28 10:01 | PCNWS ---
Weekly nutritional screen. Patient is tolerating current heart healthy diet with adequate intake at 75-100%. No weight loss reported. No nutritional needs at this time.
--- NOTE | 2022-06-28 13:15 | PM.IMPN ---
Progress Note: A&P Assessment and Plan (1) Acute on chronic respiratory failure with hypoxia and hypercapnia: Code(s): J96.21 - Acute and chronic respiratory failure with hypoxia; J96.22 - Acute and chronic respiratory failure with hypercapnia Status: Acute Assessment and Plan: The patient presented to the ED from home for evaluation of hypoxia (64% on her 3 L). She is chronically on home O2 at 3L. The patient was asymptomatic but family noticed SOB with minimal activity and conversational dyspnea. ABG on a non-rebreather showed 7.34/59.5/63 on 8L. She was started on bipap and admitted to IMU. Full Code -Chest x-ray shows diffuse lung disease which could be pneumonia and/or pulmonary edema. -Influenza, RSV and COVID negative -She is afebrile and WBC about normal. pt is on iv doxycycline and iv rocephin and iv vancomycin - can transition to iv maxipime only -Echo from 05/28 showing EF 65% and grade I diastolic dysfunction. Limited Echo here showing no shunt by bubble -CTA showing no PE but small bilateral pleural effusions with atelectasis and possibly mild pulm edema. BNP 5000 -Pt to continue on Lasix iv bid (2) Atrial fibrillation with rapid ventricular response: Code(s): I48.91 - Unspecified atrial fibrillation Status: Acute Assessment and Plan: In the ED, patient developed new onset AFib with RVR. She was started on amiodarone. She was asymptomatic -Amiodarone changed to Sotalol -She converted to NSR around 2pm on 06/22/22 -Sotalol dose decreased due to bradycardia. HR is around 50s (3) Pneumonia: Code(s): J18.9 - Pneumonia, unspecified organism Status: Acute Assessment and Plan: CT Chest as mentioned above. She is on zanabrutinib which can cause PNA and opportunistic infections. -Influenza, RSV and COVID negative -Currently on ceftriaxone, doxycycline and vancomycin transition to iv maxipime only - BC negative to date - Pulmonary on board - continue airvo at 60% oxygenation - try to wean off oxygen slowly (4) Chronic obstructive pulmonary disease: Code(s): J44.9 - Chronic obstructive pulmonary disease, unspecified Status: Acute Assessment and Plan: CT Chest showing mild emphysema. She was on Anoro scheduled and Albuterol inhaler prn at home. -Prednisone started -Pulmicort Respules started -On Albuterol and Atrovent nebs here (5) Elevated troponin: Code(s): R77.8 - Other specified abnormalities of plasma proteins Status: Acute Assessment and Plan: Trop only mildly elevated to 0.037. [place] related to the respiratory failure and AFib/RVR. Mildly elevated Trop not felt to be clinically significant. As above. (6) Diastolic dysfunction: Code(s): I51.89 - Other ill-defined heart diseases Status: Acute Assessment and Plan: Noted by Echo in May. Limited Echo here showing no shunt. (7) Hyponatremia: Code(s): E87.1 - Hypo-osmolality and hyponatremia Status: Acute Assessment and Plan: Baseline Na normal last year but 128-136 last month. Na low on admission here and has dropped to 127. now 134 Subjective Date/time seen: 06/28/22 13:15 Interval history: 87yo female former smoker with history of NHL and newly detected COPD with evidence of chronic hypoxemic and hypercapnic respiratory failure during a recent hospitalization who presented to the ED from home for evaluation of hypoxia Patient was able to tolerate BiPAP overnight. She is currently on Airvo at 60 L at 60% FiO2. Pt states she smoked heavily and was a passive smoker for most for her life. 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 Pt feels better today admitted for chronic hypoxemic and hypercapnic respiratory failure, COPD and Pneumonia/ Pulmonary edema Daughter in law by the bedside, long discussion about patients condition and treatments Review of Systems Review of Systems:
[2022-06-28] MEDS: CENTRAL LINE FLUSH 10 ML IV PUSH ×3 (15:10→20:20)
[2022-06-29] VITALS (28 sets, daily range): BP systolic 99–135; BP diastolic 51–59; PULSE 47–68; RESP 15–22; TEMP 36.4–37.1; O2SAT 84–94
[2022-06-29] MEDS: ALBUTEROL SULFATE NEB 2.5 MG/3 ML INH INHALATION ×4 (02:39→20:21)
[2022-06-29] MEDS: LEVOTHYROXINE SODIUM 125 MCG TABLET PO (05:59)
[2022-06-29] MEDS: CENTRAL LINE FLUSH 10 ML IV PUSH ×4 (05:59→21:18)
[2022-06-29] MEDS: APIXABAN 2.5 MG TABLET PO ×2 (08:29→21:16)
[2022-06-29] MEDS: predniSONE 20 MG TABLET 40 MG PO (08:30)
[2022-06-29] MEDS: FUROSEMIDE INJ 40 MG/4 ML VIAL 20 MG IV PUSH (08:34)
[2022-06-29] MEDS: SOTALOL HCL 20 MG TABLET PO ×2 (08:34→21:21)
[2022-06-29] MEDS: polyethylene glycoL 3350 17 GM POWD.PACK PO (08:35)
[2022-06-29] MEDS: BUDESONIDE RESPULE NEB 0.5 MG/2 ML AMP INHALATION ×2 (08:36→20:21)
--- NOTE | 2022-06-29 15:37 | PM.PNPUL ---
Progress Note: A&P Assessment and Plan (1) Acute on chronic respiratory failure with hypoxia and hypercapnia: Code(s): J96.21 - Acute and chronic respiratory failure with hypoxia; J96.22 - Acute and chronic respiratory failure with hypercapnia Status: Acute Assessment and Plan: This patient had increased hypercapnic hypoxemic respiratory failure with bilateral infiltrates and a moderate size effusion on the right side. 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 She remains on Rocephin, doxycycline and vancomycin without an organism identified as a cause of pneumonia. She has not been able to have O2 weaned, however feels better, not having bursts of rapid atrial fibrillation, and is less short of breath. Will wean O2 when able, for now monitor saturation and try diuresis. SHe benefots from having prednisone 40 mg a day, will continue. (2) Pneumonia: Code(s): J18.9 - Pneumonia, unspecified organism Status: Acute Assessment and Plan: continues on IV ceftriaxone , doxycycline and vancomycin; she has no sputum for testing. She had urine antigens for pulmonary pathogens; pneumococcus, Legionella, on Jun 21 however no results are in the system, and this appears to have been cancelled, not clear why. She is at risk for Pneumocystis while using zanabrutinib She is not on prophylaxis for PJP now, but is at high risk. I will start Bactrim DS 1 a day at discharge for PJP prophylaxis. She is negative for Influenza A, B, RSV, SARS-Co-V-2. (3) Chronic obstructive pulmonary disease: Code(s): J44.9 - Chronic obstructive pulmonary disease, unspecified Status: Acute Assessment and Plan: Continue maintenance COPD Rx with Anoro, rescue lev-albuterol Stop ipratropium with LAMA in Anoro; umeclidinium is same class as ipratropium. Continue inhaled steroid through nebulizer, budesonide BID Plan O2 to maintain saturation above 90%. She has been on BiPAP 04/10 with 70%, AirVo @ 90%, adjusted for her need. Her saturation is 96-97%. She does not need this much oxygen. The Airvo is giving her a break from continuous BiPAP which causes break down in skin on her face. It also allows her eat and drink. Continue empiric antibiotics to cover opportunistic infection and community-acquired pathogens. Echo with bubble Jun 23 is negative for R -> L shift. Methemoglobin is normal. SARS-Co-V-2 was normal May 30 & Jun 16, so this is not COVID. Empiric steroids for COPD with pneumonia. Subjective Date/time seen: 06/30/22 1900 Interval history: Hospital follow up : Cindy Estrada is an 87-year-old woman admitted with hypoxemia with little distress Jun 16. She has required increased amount of O2 during her stay. She is sitting up in bed, Hospital day #8. 06/23 : echo with bubble was negative for intra-cardiac shunt. 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 Her son also tells me she was on allopurinol. This was to prevent tumor lysis. She is in Room 210, on AirVo with stable saturation, 94%. She is on 90%, 60 L/min. She feels better compared to admission. She has an eye appointment for wet macular degeneration, and an oncology appointment coming up soon for lymphoma. HISTORY: She had an admission recently in May with low O2 with a new diagnosis of COPD with hypercapnia and hypoxemia, placed on O2, discharged home on O2 and a steroid taper with Anoro and albuterol inhaler to use Q 4 hours p.r.n.? She lives alone.? Over the last few days, she has been having lo
--- NOTE | 2022-06-29 16:55 | PM.IMPN ---
Progress Note: A&P Assessment and Plan (1) Acute on chronic respiratory failure with hypoxia and hypercapnia: Code(s): J96.21 - Acute and chronic respiratory failure with hypoxia; J96.22 - Acute and chronic respiratory failure with hypercapnia Status: Acute Assessment and Plan: The patient presented to the ED from home for evaluation of hypoxia (64% on her 3 L). She is chronically on home O2 at 3L. The patient was asymptomatic but family noticed SOB with minimal activity and conversational dyspnea. ABG on a non-rebreather showed 7.34/59.5/63 on 8L. She was started on bipap and admitted to IMU. Full Code -Chest x-ray shows diffuse lung disease which could be pneumonia and/or pulmonary edema. -Influenza, RSV and COVID negative -She is afebrile and WBC about normal. pt is on iv doxycycline and iv rocephin and iv vancomycin transition to cefepime only Immunocompromised host on brukinsa twice daily -Echo from 05/28 showing EF 65% and grade I diastolic dysfunction. Limited Echo here showing no shunt by bubble -CTA showing no PE but small bilateral pleural effusions with atelectasis and possibly mild pulm edema. BNP 5000 -Pt to continue on Lasix iv bid start on Bactrim for PJP prophylaxis at discharge BNP 5000. Chest x-ray with still congestive changes. CT and chest x-ray was reviewed. On IV diuresis 20 b.i.d. of Lasix. Will give an extra dose today (2) Atrial fibrillation with rapid ventricular response: Code(s): I48.91 - Unspecified atrial fibrillation Status: Acute Assessment and Plan: In the ED, patient developed new onset AFib with RVR. She was started on amiodarone. She was asymptomatic -Amiodarone changed to Sotalol -She converted to NSR around 2pm on 06/22/22 -Sotalol dose decreased due to bradycardia. HR is around 50s (3) Pneumonia: Code(s): J18.9 - Pneumonia, unspecified organism Status: Acute Assessment and Plan: CT Chest as mentioned above. She is on zanabrutinib which can cause PNA and opportunistic infections. -Influenza, RSV and COVID negative -Currently on ceftriaxone, doxycycline and vancomycin transition to iv maxipime only - BC negative to date - Pulmonary on board - continue airvo at 60% oxygenation - try to wean off oxygen slowly (4) Chronic obstructive pulmonary disease: Code(s): J44.9 - Chronic obstructive pulmonary disease, unspecified Status: Acute Assessment and Plan: CT Chest showing mild emphysema. She was on Anoro scheduled and Albuterol inhaler prn at home. -Prednisone started -Pulmicort Respules started -On Albuterol and Atrovent nebs here (5) Elevated troponin: Code(s): R77.8 - Other specified abnormalities of plasma proteins Status: Acute Assessment and Plan: Trop only mildly elevated to 0.037. [place] related to the respiratory failure and AFib/RVR. Mildly elevated Trop not felt to be clinically significant. As above. (6) Diastolic dysfunction: Code(s): I51.89 - Other ill-defined heart diseases Status: Acute Assessment and Plan: Noted by Echo in May. Limited Echo here showing no shunt. (7) Hyponatremia: Code(s): E87.1 - Hypo-osmolality and hyponatremia Status: Acute Assessment and Plan: Baseline Na normal last year but 128-136 last month. Na low on admission here and has dropped to 127. now 134 Subjective Date/time seen: 06/29/22 16:55 Interval history: 87 yo female former smoker with history of NHL and newly detected COPD with evidence of chronic hypoxemic and hypercapnic respiratory failure during a recent hospitalization who presented to the ED from home for evaluation of hypoxia No overnight events. BiPAP overnight remains on Airvo 70% FiO2 at 60 L. Review of Systems Review of Systems: All systems reviewed & are unremarkable except as noted in HPI and below Exam Narrative: General: Elderly lady on Airvo sitting on the
[2022-06-29] MEDS: FUROSEMIDE INJ 40 MG/4 ML VIAL IV PUSH (18:22)
[2022-06-29 19:27] LABS: NT Pro B Type Natriuretic Pept 662 pg/mL (19.9-100)
--- NOTE | 2022-06-29 23:20 | ECG_ITS ---
Measurements Intervals [place] Rate: 56 P: 71 NH: 161 QRS: -3 QRSD: 82 T: 34 QT: 423 QTc: 409 Interpretive Statements SINUS BRADYCARDIA LOW-VOLTAGE QRS POOR R-WAVE PROGRESSION POSSIBLE LEFT ATRIAL ENLARGEMENT [-0.1mV P WAVE IN V1/V2] NONSPECIFIC T-WAVE ABNORMALITY COMPARED TO ECG 06/24/2022 22:28 NO SIGNIFICANT CHANGE Electronically Signed On 06-30-2022 7:55:47 [employer] by Simba Jackson M.D.
[2022-06-29] MEDS: CEFEPIME 2 GM/NS 50 ML 2 GM/50 ML BAG IVPB (23:24)
[2022-06-30] VITALS (30 sets, daily range): BP systolic 101–136; BP diastolic 46–59; PULSE 48–72; RESP 15–25; TEMP 36.3–36.5; O2SAT 91–98
[2022-06-30] MEDS: ALBUTEROL SULFATE NEB 2.5 MG/3 ML INH INHALATION ×4 (02:34→20:34)
[2022-06-30] MEDS: CENTRAL LINE FLUSH 10 ML IV PUSH ×4 (05:06→20:44)
[2022-06-30] MEDS: CENTRAL LINE FLUSH 20 ML IV PUSH (05:06)
[2022-06-30 05:26] LABS: Basophils Percent Auto 0.4 % (0.2-1.2); Eosinophils Absolute Auto 0.1 K/mm3 (0-0.3); Eosinophils Percent Auto 0.9 % (0-4.4); Hematocrit 42.6 % (37.0-47.0); Hemoglobin 13.6 g/dL (12.0-15.0); Immature Granulocyte Absolute 0.11 K/mm3 (0.00-0.031); Immature Granulocyte Percent A 1.4 % (0-0.5); Lymphocytes Absolute Auto 0.47 K/mm3 (0.9-3.2); Lymphocytes Percent Auto 5.9 % (18.3-44.2); Mean Corpuscular HGB Conc 31.9 g/dl (32-36); Mean Corpuscular Hemoglobin 29.2 pg (26-34); Mean Corpuscular Volume 91.4 fl (80-100); Mean Platelet Volume 9.4 fl (7.4-10.4); Monocytes Absolute Auto 0.3 K/mm3 (0.1-0.6); Monocytes Percent Auto 3.2 % (2.6-8.5); Neutrophils Absolute Auto 7.1 K/mm3 (1.3-6.7); Neutrophils Percent Auto 88.2 % (45.5-73.1); Platelet Count Result 500 k/mm3 (150-375); Red Blood Count 4.66 M/mm3 (4.2-5.4); Red Cell Distribution Width 16.9 % (11.5-14.5)
[2022-06-30 05:43] LABS: Alanine Aminotransferase 27 U/L (6-35); Alkaline Phosphatase 49 U/L (38-126); Aspartate Amino Transferase 30 U/L (14-36); Bilirubin,Total 0.4 mg/dL (0.2-1.3); Blood Urea Nitrogen 32 mg/dL (7-17); Calcium 8.6 mg/dL (8.4-10.2); Carbon Dioxide > 40 mmol/L (22-30); Chloride 87 mmol/L (98-107); Estimated CRCL calculation 42 ml/min; Estimated Glomerular Filt Rate > 60; Glucose 77 mg/dL (65-110); Magnesium 2.3 mg/dL (1.6-2.3); Potassium 3.7 mmol/L (3.4-5.0); Sodium 132 mmol/L (137-145)
[2022-06-30] MEDS: LEVOTHYROXINE SODIUM 125 MCG TABLET PO (05:49)
[2022-06-30] MEDS: BUDESONIDE RESPULE NEB 0.5 MG/2 ML AMP INHALATION ×2 (08:25→20:34)
[2022-06-30] MEDS: polyethylene glycoL 3350 17 GM POWD.PACK PO (10:01)
[2022-06-30] MEDS: APIXABAN 2.5 MG TABLET PO ×2 (10:01→20:44)
[2022-06-30] MEDS: predniSONE 20 MG TABLET 40 MG PO (10:01)
[2022-06-30] MEDS: FUROSEMIDE INJ 40 MG/4 ML VIAL 20 MG IV PUSH ×2 (10:02→17:34)
[2022-06-30] MEDS: SOTALOL HCL 20 MG TABLET PO ×2 (10:02→20:44)
--- NOTE | 2022-06-30 14:10 | PM.IMPN ---
Progress Note: A&P Assessment and Plan (1) Acute on chronic respiratory failure with hypoxia and hypercapnia: Code(s): J96.21 - Acute and chronic respiratory failure with hypoxia; J96.22 - Acute and chronic respiratory failure with hypercapnia Status: Acute Assessment and Plan: The patient presented to the ED from home for evaluation of hypoxia (64% on her 3 L). She is chronically on home O2 at 3L. The patient was asymptomatic but family noticed SOB with minimal activity and conversational dyspnea. ABG on a non-rebreather showed 7.34/59.5/63 on 8L. She was started on bipap and admitted to IMU. Full Code -Chest x-ray shows diffuse lung disease which could be pneumonia and/or pulmonary edema. -Influenza, RSV and COVID negative -She is afebrile and WBC about normal. pt is on iv doxycycline and iv rocephin and iv vancomycin transition to cefepime only Immunocompromised host on brukinsa twice daily -Echo from 05/28 showing EF 65% and grade I diastolic dysfunction. Limited Echo here showing no shunt by bubble -CTA showing no PE but small bilateral pleural effusions with atelectasis and possibly mild pulm edema. BNP 5000 -Pt to continue on Lasix iv bid start on Bactrim for PJP prophylaxis at discharge BNP 5000. Chest x-ray with still congestive changes. CT and chest x-ray was reviewed. On IV diuresis 20 b.i.d. of Lasix. 40 mg x 1 06/29. (2) Atrial fibrillation with rapid ventricular response: Code(s): I48.91 - Unspecified atrial fibrillation Status: Acute Assessment and Plan: In the ED, patient developed new onset AFib with RVR. She was started on amiodarone. She was asymptomatic -Amiodarone changed to Sotalol -She converted to NSR around 2pm on 06/22/22 -Sotalol dose decreased due to bradycardia. HR is around 50s (3) Pneumonia: Code(s): J18.9 - Pneumonia, unspecified organism Status: Acute Assessment and Plan: CT Chest as mentioned above. She is on zanabrutinib which can cause PNA and opportunistic infections. -Influenza, RSV and COVID negative -Currently on ceftriaxone, doxycycline and vancomycin transition to iv maxipime only - BC negative to date - Pulmonary on board - continue airvo at 60% oxygenation - try to wean off oxygen slowly (4) Chronic obstructive pulmonary disease: Code(s): J44.9 - Chronic obstructive pulmonary disease, unspecified Status: Acute Assessment and Plan: CT Chest showing mild emphysema. She was on Anoro scheduled and Albuterol inhaler prn at home. -Prednisone started -Pulmicort Respules started -On Albuterol and Atrovent nebs here (5) Elevated troponin: Code(s): R77.8 - Other specified abnormalities of plasma proteins Status: Acute Assessment and Plan: Trop only mildly elevated to 0.037. [place] related to the respiratory failure and AFib/RVR. Mildly elevated Trop not felt to be clinically significant. As above. (6) Diastolic dysfunction: Code(s): I51.89 - Other ill-defined heart diseases Status: Acute Assessment and Plan: Noted by Echo in May. Limited Echo here showing no shunt. (7) Hyponatremia: Code(s): E87.1 - Hypo-osmolality and hyponatremia Status: Acute Assessment and Plan: Baseline Na normal last year but 128-136 last month. Na low on admission here and has dropped to 127. now 134 Subjective Date/time seen: 06/30/22 14:10 Interval history: 87 yo female former smoker with history of NHL and newly detected COPD with evidence of chronic hypoxemic and hypercapnic respiratory failure during a recent hospitalization who presented to the ED from home for evaluation of hypoxia No overnight events. no new complaints. no fever, chills, sob, chest pain. no leg swelling. Review of Systems Review of Systems: All systems reviewed & are unremarkable except as noted in HPI and below Exam Narrative: General: Elderly lady on Airvo sitting on t
[2022-06-30] MEDS: CEFEPIME 2 GM/NS 50 ML 2 GM/50 ML BAG IVPB ×2 (14:38→23:31)
[2022-07-01] VITALS (30 sets, daily range): BP systolic 102–126; BP diastolic 47–86; PULSE 47–69; RESP 3–24; TEMP 36.1–36.8; O2SAT 92–97
[2022-07-01] MEDS: ALBUTEROL SULFATE NEB 2.5 MG/3 ML INH INHALATION ×4 (01:27→20:25)
[2022-07-01] MEDS: CENTRAL LINE FLUSH 10 ML IV PUSH ×4 (05:37→21:06)
[2022-07-01] MEDS: CENTRAL LINE FLUSH 20 ML IV PUSH (05:37)
[2022-07-01] MEDS: LEVOTHYROXINE SODIUM 125 MCG TABLET PO (05:49)
[2022-07-01 06:26] LABS: Alanine Aminotransferase 27 U/L (6-35); Albumin Level 2.9 g/dL (3.5-5.1); Alkaline Phosphatase 45 U/L (38-126); Aspartate Amino Transferase 26 U/L (14-36); Bilirubin,Total 0.4 mg/dL (0.2-1.3); Blood Urea Nitrogen 32 mg/dL (7-17); Calcium 8.7 mg/dL (8.4-10.2); Carbon Dioxide > 40 mmol/L (22-30); Chloride 88 mmol/L (98-107); Estimated CRCL calculation 42 ml/min; Estimated Glomerular Filt Rate > 60; Glucose 76 mg/dL (65-110); Magnesium 2.3 mg/dL (1.6-2.3); Potassium 3.8 mmol/L (3.4-5.0); Sodium 132 mmol/L (137-145)
[2022-07-01 06:29] LABS: Basophils Percent Auto 0.3 % (0.2-1.2); Eosinophils Percent Auto 0.3 % (0-4.4); Hematocrit 41.2 % (37.0-47.0); Hemoglobin 12.8 g/dL (12.0-15.0); Immature Granulocyte Absolute 0.13 K/mm3 (0.00-0.031); Immature Granulocyte Percent A 1.7 % (0-0.5); Lymphocytes Absolute Auto 0.47 K/mm3 (0.9-3.2); Mean Corpuscular HGB Conc 31.1 g/dl (32-36); Mean Corpuscular Volume 93.2 fl (80-100); Mean Platelet Volume 9.7 fl (7.4-10.4); Monocytes Absolute Auto 0.3 K/mm3 (0.1-0.6); Monocytes Percent Auto 3.6 % (2.6-8.5); Neutrophils Absolute Auto 6.9 K/mm3 (1.3-6.7); Neutrophils Percent Auto 88.1 % (45.5-73.1); Platelet Count Result 474 k/mm3 (150-375); Red Blood Count 4.42 M/mm3 (4.2-5.4); White Blood Count 7.8 K/mm3 (4.5-10.0)
[2022-07-01] MEDS: BUDESONIDE RESPULE NEB 0.5 MG/2 ML AMP INHALATION ×2 (08:58→20:26)
[2022-07-01] MEDS: SOTALOL HCL 20 MG TABLET PO ×2 (09:31→21:05)
[2022-07-01] MEDS: predniSONE 20 MG TABLET 40 MG PO (09:32)
[2022-07-01] MEDS: APIXABAN 2.5 MG TABLET PO ×2 (09:32→21:06)
[2022-07-01] MEDS: FUROSEMIDE INJ 40 MG/4 ML VIAL 20 MG IV PUSH ×2 (09:32→17:54)
--- NOTE | 2022-07-01 09:53 | PM.PNCARD ---
Progress Note: A&P Assessment and Plan (1) Atrial fibrillation with rapid ventricular response: Code(s): I48.91 - Unspecified atrial fibrillation Status: Acute (2) Chronic obstructive pulmonary disease: Code(s): J44.9 - Chronic obstructive pulmonary disease, unspecified Status: Acute (3) Acute on chronic respiratory failure with hypoxia and hypercapnia: Code(s): J96.21 - Acute and chronic respiratory failure with hypoxia; J96.22 - Acute and chronic respiratory failure with hypercapnia Status: Acute (4) Non-Hodgkin's lymphoma: Code(s): C85.90 - Non-Hodgkin lymphoma, unspecified, unspecified site Status: Acute Plan Elderly white female with paroxysmal atrial fibrillation. No significant structural heart disease noted by echo. A modest dose of sotalol appears to be maintaining sinus rhythm for her. No adjustments in this regimen are needed at this time Simba Casillas MD [facility] Subjective Date/time seen: Date of service: 07/01/22 09:53 Interval history: Follow-up visit in this 87-year-old lady with: Paroxysmal atrial fibrillation with new onset of this arrhythmia on admission to the hospital. She is being maintained on a modest dose of sotalol and does appear to be maintaining sinus rhythm in a stable fashion. Saw her today as I notice she is still in the hospital for her respiratory difficulties. There have been no arrhythmias that have been problematic according to review of the chart and her telemetry. O2 requirements are being titrated. Exam Const: General: comfortable and no acute distress Other: Elderly lady seated in bed with high-flow nasal cannula oxygen in place HENMT: Mouth: Yes moist mucous membranes Eyes: Sclera: sclerae normal Neck: Neck: supple and no JVD Resp: Other: Breath sounds are diminished at the right base Cardio: Rate: regular rate Rhythm: regular rhythm Other: No murmur no gallop GI: GI Palp: Yes Soft to palpation Auscultation: normal bowel sounds Skin: General skin exam: normal color Neuro: Other: Alert and oriented x3 Objective Data Vital Signs Vital Signs: Vital Signs - 24 hr 06/30/22 10:02 06/30/22 12:00 06/30/22 10:00 Temperature 36.3 C L Pulse Rate 61 62 68 Respiratory Rate 20 Blood Pressure 123/46 L Pulse Oximetry 91 Oxygen Delivery Oxygen Flow Rate Fraction of Inspired Oxygen 06/30/22 12:00 06/30/22 12:00 06/30/22 14:00 Temperature Pulse Rate 72 61 Respiratory Rate 20 Blood Pressure Pulse Oximetry 91 Oxygen Delivery High Flow Therapy with Na Oxygen Flow Rate 55 Fraction of Inspired Oxygen 60 06/30/22 13:50 06/30/22 13:51 06/30/22 14:02 Temperature Pulse Rate 62 69 Respiratory Rate 20 22 H Blood Pressure Pulse Oximetry 92 Oxygen Delivery High Flow Therapy with Na Oxygen Flow Rate 55 Fraction of Inspired Oxygen 60 06/30/22 16:00 06/30/22 16:00 06/30/22 16:00 Temperature 36.4 C Pulse Rate 60 63 Respiratory Rate 20 16 Blood Pressure 125/56 L Pulse Oximetry 91 98 Oxygen Delivery High Flow Therapy with Na Oxygen Flow Rate 55 Fraction of Inspired Oxygen 60 06/30/22 18:00 06/30/22 19:55 06/30/22 20:37 Temperature 36.4 C Pulse Rate 60 61 60 Respiratory Rate 18 20 Blood Pressure 101/59 L Pulse Oximetry 96 Oxygen Delivery Oxygen Flow Rate Fraction of Inspired Oxygen 06/30/22 20:37 06/30/22 20:53 06/30/22 20:00 Temperature Pulse Rate 59 L 61 Respiratory Rate 20 18 Blood Pressure Pulse Oximetry 93 96 Oxygen Delivery High Flow Therapy with Na High Flow Therapy with Na Oxygen Flow Rate 55 55 Fraction of Inspired Oxygen 60 58 06/30/22 20:44 06/30/22 20:00 06/30/22 22:00 Temperature Pulse Rate 62 60 57 L Respiratory Rate Blood Pressure Pulse Oximetry Oxygen Delivery Oxygen Flow Rate Fraction of Inspired Oxygen 06/30/22 23:10 06/30/22 23:
[2022-07-01] MEDS: CEFEPIME 2 GM/NS 50 ML 2 GM/50 ML BAG IVPB ×2 (12:40→23:26)
--- NOTE | 2022-07-01 15:44 | PM.IMPN ---
Progress Note: A&P Assessment and Plan (1) Acute on chronic respiratory failure with hypoxia and hypercapnia: Code(s): J96.21 - Acute and chronic respiratory failure with hypoxia; J96.22 - Acute and chronic respiratory failure with hypercapnia Status: Acute Assessment and Plan: The patient presented to the ED from home for evaluation of hypoxia (64% on her 3 L). She is chronically on home O2 at 3L. The patient was asymptomatic but family noticed SOB with minimal activity and conversational dyspnea. ABG on a non-rebreather showed 7.34/59.5/63 on 8L. She was started on bipap and admitted to IMU. Full Code -Chest x-ray shows diffuse lung disease which could be pneumonia and/or pulmonary edema. -Influenza, RSV and COVID negative -She is afebrile and WBC about normal. pt is on iv doxycycline and iv rocephin and iv vancomycin transition to cefepime only Immunocompromised host on brukinsa twice daily -Echo from 05/28 showing EF 65% and grade I diastolic dysfunction. Limited Echo here showing no shunt by bubble -CTA showing no PE but small bilateral pleural effusions with atelectasis and possibly mild pulm edema. BNP 5000 -Pt to continue on Lasix iv bid start on Bactrim for PJP prophylaxis at discharge BNP 5000. Chest x-ray with still congestive changes. CT and chest x-ray was reviewed. On IV diuresis 20 b.i.d. of Lasix. 40 mg x 1 06/29. ? role of PCP treatment empirically Transfer to LTAC for continued respiratory treatment and weaning (2) Atrial fibrillation with rapid ventricular response: Code(s): I48.91 - Unspecified atrial fibrillation Status: Acute Assessment and Plan: In the ED, patient developed new onset AFib with RVR. She was started on amiodarone. She was asymptomatic -Amiodarone changed to Sotalol -She converted to NSR around 2pm on 06/22/22 -Sotalol dose decreased due to bradycardia. HR is around 50s (3) Pneumonia: Code(s): J18.9 - Pneumonia, unspecified organism Status: Acute Assessment and Plan: CT Chest as mentioned above. She is on zanabrutinib which can cause PNA and opportunistic infections. -Influenza, RSV and COVID negative -Currently on ceftriaxone, doxycycline and vancomycin transition to iv maxipime only - BC negative to date - Pulmonary on board - continue airvo at 60% oxygenation - try to wean off oxygen slowly (4) Chronic obstructive pulmonary disease: Code(s): J44.9 - Chronic obstructive pulmonary disease, unspecified Status: Acute Assessment and Plan: CT Chest showing mild emphysema. She was on Anoro scheduled and Albuterol inhaler prn at home. -Prednisone started -Pulmicort Respules started -On Albuterol and Atrovent nebs here (5) Elevated troponin: Code(s): R77.8 - Other specified abnormalities of plasma proteins Status: Acute Assessment and Plan: Trop only mildly elevated to 0.037. [place] related to the respiratory failure and AFib/RVR. Mildly elevated Trop not felt to be clinically significant. As above. (6) Diastolic dysfunction: Code(s): I51.89 - Other ill-defined heart diseases Status: Acute Assessment and Plan: Noted by Echo in May. Limited Echo here showing no shunt. (7) Hyponatremia: Code(s): E87.1 - Hypo-osmolality and hyponatremia Status: Acute Assessment and Plan: Baseline Na normal last year but 128-136 last month. Na low on admission here and has dropped to 127. now 134 Subjective Date/time seen: 07/01/22 15:44 Interval history: 87 yo female former smoker with history of NHL and newly detected COPD with evidence of chronic hypoxemic and hypercapnic respiratory failure during a recent hospitalization who presented to the ED from home for evaluation of hypoxia No overnight events. no new complaints. no fever, chills, sob, chest pain. no leg swelling. 07/01/2022: No overnight events; shortness of breath quite stable. Oxygen re
[2022-07-02] VITALS (28 sets, daily range): BP systolic 100–132; BP diastolic 44–76; PULSE 50–65; RESP 9–22; TEMP 36.2–36.6; O2SAT 90–97
[2022-07-02] MEDS: ALBUTEROL SULFATE NEB 2.5 MG/3 ML INH INHALATION ×2 (03:10→08:31)
[2022-07-02] MEDS: CENTRAL LINE FLUSH 10 ML IV PUSH ×4 (05:35→20:56)
[2022-07-02] MEDS: LEVOTHYROXINE SODIUM 125 MCG TABLET PO (05:35)
[2022-07-02] MEDS: BUDESONIDE RESPULE NEB 0.5 MG/2 ML AMP INHALATION ×2 (08:31→20:15)
[2022-07-02] MEDS: predniSONE 20 MG TABLET 40 MG PO (09:29)
[2022-07-02] MEDS: SOTALOL HCL 20 MG TABLET PO ×2 (09:30→20:56)
[2022-07-02] MEDS: APIXABAN 2.5 MG TABLET PO ×2 (09:30→20:56)
[2022-07-02] MEDS: FUROSEMIDE INJ 40 MG/4 ML VIAL 20 MG IV PUSH ×2 (09:30→17:31)
[2022-07-02] MEDS: CEFEPIME 2 GM/NS 50 ML 2 GM/50 ML BAG IVPB ×2 (12:30→23:45)
--- NOTE | 2022-07-02 13:10 | PM.IMPN ---
Progress Note: A&P Assessment and Plan (1) Acute on chronic respiratory failure with hypoxia and hypercapnia: Code(s): J96.21 - Acute and chronic respiratory failure with hypoxia; J96.22 - Acute and chronic respiratory failure with hypercapnia Status: Acute Assessment and Plan: The patient presented to the ED from home for evaluation of hypoxia (64% on her 3 L). She is chronically on home O2 at 3L. The patient was asymptomatic but family noticed SOB with minimal activity and conversational dyspnea. ABG on a non-rebreather showed 7.34/59.5/63 on 8L. She was started on bipap and admitted to IMU. Full Code -Chest x-ray shows diffuse lung disease which could be pneumonia and/or pulmonary edema. -Influenza, RSV and COVID negative -She is afebrile and WBC about normal. pt is on iv doxycycline and iv rocephin and iv vancomycin transition to cefepime only Immunocompromised host on brukinsa twice daily -Echo from 05/28 showing EF 65% and grade I diastolic dysfunction. Limited Echo here showing no shunt by bubble -CTA showing no PE but small bilateral pleural effusions with atelectasis and possibly mild pulm edema. BNP 5000 -Pt to continue on Lasix iv bid start on Bactrim for PJP prophylaxis at discharge BNP 5000. Chest x-ray with still congestive changes. CT and chest x-ray was reviewed. On IV diuresis 20 b.i.d. of Lasix. 40 mg x 1 06/29. ? role of PCP treatment empirically ? Transfer to LTAC for continued respiratory treatment and weaning Chest x-ray with improved aeration with decreased congestion today (2) Atrial fibrillation with rapid ventricular response: Code(s): I48.91 - Unspecified atrial fibrillation Status: Acute Assessment and Plan: In the ED, patient developed new onset AFib with RVR. She was started on amiodarone. She was asymptomatic -Amiodarone changed to Sotalol -She converted to NSR around 2pm on 06/22/22 -Sotalol dose decreased due to bradycardia. HR is around 50s (3) Pneumonia: Code(s): J18.9 - Pneumonia, unspecified organism Status: Acute Assessment and Plan: CT Chest as mentioned above. She is on zanabrutinib which can cause PNA and opportunistic infections. -Influenza, RSV and COVID negative -Currently on ceftriaxone, doxycycline and vancomycin transition to iv maxipime only - BC negative to date - Pulmonary on board - continue airvo at 60% oxygenation - try to wean off oxygen slowly (4) Chronic obstructive pulmonary disease: Code(s): J44.9 - Chronic obstructive pulmonary disease, unspecified Status: Acute Assessment and Plan: CT Chest showing mild emphysema. She was on Anoro scheduled and Albuterol inhaler prn at home. -Prednisone started -Pulmicort Respules started -On Albuterol and Atrovent nebs here (5) Elevated troponin: Code(s): R77.8 - Other specified abnormalities of plasma proteins Status: Acute Assessment and Plan: Trop only mildly elevated to 0.037. [place] related to the respiratory failure and AFib/RVR. Mildly elevated Trop not felt to be clinically significant. As above. (6) Diastolic dysfunction: Code(s): I51.89 - Other ill-defined heart diseases Status: Acute Assessment and Plan: Noted by Echo in May. Limited Echo here showing no shunt. (7) Hyponatremia: Code(s): E87.1 - Hypo-osmolality and hyponatremia Status: Acute Assessment and Plan: Baseline Na normal last year but 128-136 last month. Na low on admission here and has dropped to 127. now 134 Subjective Date/time seen: 07/02/22 13:10 Interval history: 87 yo female former smoker with history of NHL and newly detected COPD with evidence of chronic hypoxemic and hypercapnic respiratory failure during a recent hospitalization who presented to the ED from home for evaluation of hypoxia No overnight events. no new complaints. no fever, chills, sob, chest pain. no leg swelling.
--- NOTE | 2022-07-02 17:32 | PM.PNPUL ---
Progress Note: A&P Assessment and Plan (1) Acute on chronic respiratory failure with hypoxia and hypercapnia: Code(s): J96.21 - Acute and chronic respiratory failure with hypoxia; J96.22 - Acute and chronic respiratory failure with hypercapnia Status: Acute Assessment and Plan: Patient with acute and chronic respiratory failure with hypoxia and hypercarbia. Etiology includes underlying COPD, pneumonia, and fluid overload. She has been treated with Antibiotics, steroids, bronchodilators and IV Lasix. covid, influenza and RSV negative on 06/21/2022. Repeat covid on 06/26/2022. 06/23 at worst hypoxia the patient required BiPAP 18/8 and 100% FiO2 for sats of 88%. Patient was treated for bacterial pneumonia and for fluid overload with IV Lasix. 06/29: patient was on 45 L high-flow with 50% FiO2 06/30: patient is on 55 L with 45% FiO2 07/01: patient was on 55 L with 75% FiO2 07/02 Patient on 50 L with 45% FiO2 with saturations 92%. chest x-ray shows improved bilateral interstitial infiltrates. At this time I will continue high-flow nasal cannula and noninvasive ventilation with BiPAP rate of 12, 18/10 and 40% at night. Patient has been on prednisone 40 mg p.o. q.day since 06/23/2022 and I will discontinue today. Patient had 1 dose of vancomycin and cefepime on 06/21, ceftriaxone 06/21 through 06/27 (7 days), doxycycline 06/23 through 06/28 (6 days) and cefepime from 06/29 through today (day 5). discussed with Dr. Godoy, will follow with you. (2) Chronic obstructive pulmonary disease: Code(s): J44.9 - Chronic obstructive pulmonary disease, unspecified Status: Acute Assessment and Plan: patient carries a history of COPD, CT scan chest on 05/30/2022 with mild apical predominant centrilobular emphysema. I have no PFTs. 07/02/2022: There are no wheezing on exam. Patient is on Anoro Ellipta 62.5-25 at 1 puff q.day, budesonide 0.5 mg nebs q.12 hours, and was on prednisone 40 mg p.o. q.day from 06/23 through 07/02. (3) Fluid overload: Code(s): E87.70 - Fluid overload, unspecified Status: Acute Assessment and Plan: patient presented on 06/21/2022 with possible congestion on her CT scan, BNP of 5030 and was diuresed with Lasix. echocardiogram on 05/31/2022 demonstrates normal LV function 65-70%, grade 1 diastolic dysfunction, moderate aortic valve sclerosis, mild aortic valve stenosis with a mean gradient of 8 and an aortic valve area of 2.0. Normal right ventricular function and size, normal right atrial size, no cry to tricuspid regurgitation and RVSP of 34. She had a negative bubble study on 06/23/2022. On 06/29/2022 her BNP was 662. Admission weight was 68 kilos, on 07/02 she weighs 63 kilos and her ins and outs demonstrates she is -3.1 8 L negative on Lasix 20 IV b.i.d. Subjective Date/time seen: 07/02/22 17:32 Interval history: 06/22/2022: New consult: NEW: Cindy Estrada is an 87-year-old woman admitted with hypoxemia without distress. 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 treated with zanubrutinib by Dr Schulz, much improved lymphadenopathy.? HISTORY:? She had an admission recently in May with low O2 with a new diagnosis of COPD with hypercapnia and hypoxemia, placed on O2, discharged home on O2 and a steroid taper with Anoro and albuterol inhaler to use Q 4 hours p.r.n.? She lives alone.? Over the last few days, she has been having lower saturation, in the 80% range Saturday, 69% yesterday ,? normally is 90%.? The patient said that she was not having any problems but family noticed that she had difficulty walking and that her thinking was not quite as clear.? She came to the emergency department, had saturation in the 69% range with? few complaints of shortness of breath or coughing. Chest CT ?Small bilateral pleural effusions with dependent atelectasis in both lungs. Additional dependent groundglass opacities could represent additional
[2022-07-03] VITALS (25 sets, daily range): BP systolic 98–131; BP diastolic 39–80; PULSE 50–121; RESP 18–22; TEMP 36.1–37.1; O2SAT 90–99
[2022-07-03] MEDS: CENTRAL LINE FLUSH 10 ML IV PUSH ×4 (05:43→21:36)
[2022-07-03] MEDS: LEVOTHYROXINE SODIUM 125 MCG TABLET PO (05:43)
[2022-07-03 06:17] LABS: NT Pro B Type Natriuretic Pept 1370 pg/mL (19.9-100)
[2022-07-03] MEDS: APIXABAN 2.5 MG TABLET PO ×2 (08:34→21:35)
[2022-07-03] MEDS: FUROSEMIDE INJ 40 MG/4 ML VIAL 20 MG IV PUSH ×3 (08:34→18:03)
[2022-07-03] MEDS: SOTALOL HCL 20 MG TABLET PO ×2 (08:34→21:35)
[2022-07-03] MEDS: BUDESONIDE RESPULE NEB 0.5 MG/2 ML AMP INHALATION (08:59)
[2022-07-03] MEDS: acetaZOLAMIDE TAB 250 MG TABLET 500 MG PO (09:57)
--- NOTE | 2022-07-03 12:25 | PM.IMPN ---
Progress Note: A&P Assessment and Plan (1) Acute on chronic respiratory failure with hypoxia and hypercapnia: Code(s): J96.21 - Acute and chronic respiratory failure with hypoxia; J96.22 - Acute and chronic respiratory failure with hypercapnia Status: Acute Assessment and Plan: The patient presented to the ED from home for evaluation of hypoxia (64% on her 3 L). She is chronically on home O2 at 3L. The patient was asymptomatic but family noticed SOB with minimal activity and conversational dyspnea. ABG on a non-rebreather showed 7.34/59.5/63 on 8L. She was started on bipap and admitted to IMU. Full Code -Chest x-ray shows diffuse lung disease which could be pneumonia and/or pulmonary edema. -Influenza, RSV and COVID negative -She is afebrile and WBC about normal. pt is on iv doxycycline and iv rocephin and iv vancomycin transition to cefepime only Immunocompromised host on brukinsa twice daily -Echo from 05/28 showing EF 65% and grade I diastolic dysfunction. Limited Echo here showing no shunt by bubble -CTA showing no PE but small bilateral pleural effusions with atelectasis and possibly mild pulm edema. BNP 5000 -Pt to continue on Lasix iv bid start on Bactrim for PJP prophylaxis at discharge BNP 5000. Chest x-ray with still congestive changes. CT and chest x-ray was reviewed. On IV diuresis 20 b.i.d. of Lasix. 40 mg x 1 06/29. ? role of PCP treatment empirically Chest x-ray with improved aeration with decreased congestion 07/02/2022 Continue IV diuresis as ordered will give extra dose today and also a dose of Diamox (2) Atrial fibrillation with rapid ventricular response: Code(s): I48.91 - Unspecified atrial fibrillation Status: Acute Assessment and Plan: In the ED, patient developed new onset AFib with RVR. She was started on amiodarone. She was asymptomatic -Amiodarone changed to Sotalol -She converted to NSR around 2pm on 06/22/22 -Sotalol dose decreased due to bradycardia. HR is around 50s (3) Pneumonia: Code(s): J18.9 - Pneumonia, unspecified organism Status: Acute Assessment and Plan: CT Chest as mentioned above. She is on zanabrutinib which can cause PNA and opportunistic infections. -Influenza, RSV and COVID negative -Currently on ceftriaxone, doxycycline and vancomycin transition to iv maxipime only - BC negative to date - Pulmonary on board - continue airvo at 60% oxygenation - try to wean off oxygen slowly now down to high-flow nasal cannula (4) Chronic obstructive pulmonary disease: Code(s): J44.9 - Chronic obstructive pulmonary disease, unspecified Status: Acute Assessment and Plan: CT Chest showing mild emphysema. She was on Anoro scheduled and Albuterol inhaler prn at home. -Prednisone started -Pulmicort Respules started -On Albuterol and Atrovent nebs here (5) Elevated troponin: Code(s): R77.8 - Other specified abnormalities of plasma proteins Status: Acute Assessment and Plan: Trop only mildly elevated to 0.037. [place] related to the respiratory failure and AFib/RVR. Mildly elevated Trop not felt to be clinically significant. As above. (6) Diastolic dysfunction: Code(s): I51.89 - Other ill-defined heart diseases Status: Acute Assessment and Plan: Noted by Echo in May. Limited Echo here showing no shunt. (7) Hyponatremia: Code(s): E87.1 - Hypo-osmolality and hyponatremia Status: Acute Assessment and Plan: Baseline Na normal last year but 128-136 last month. Na low on admission here and has dropped to 127. now 134 Plan discussed with pulmonary Subjective Date/time seen: 07/03/22 12:25 Interval history: 87 yo female former smoker with history of NHL and newly detected COPD with evidence of chronic hypoxemic and hypercapnic respiratory failure during a recent hospitalization who presented to the ED from home for evaluation of hypoxia No over
--- NOTE | 2022-07-03 12:48 | PM.PNPUL ---
Progress Note: A&P Assessment and Plan (1) Acute on chronic respiratory failure with hypoxia and hypercapnia: Code(s): J96.21 - Acute and chronic respiratory failure with hypoxia; J96.22 - Acute and chronic respiratory failure with hypercapnia Status: Acute Assessment and Plan: Patient with acute and chronic respiratory failure with hypoxia and hypercarbia. Etiology includes underlying COPD, pneumonia, and fluid overload. She has been treated with Antibiotics, steroids, bronchodilators and IV Lasix. covid, influenza and RSV negative on 06/21/2022. Repeat covid on 06/26/2022. 06/23 at worst hypoxia the patient required BiPAP / and 100% FiO2 for sats of 88%. Patient was treated for bacterial pneumonia and for fluid overload with IV Lasix. 06/29: patient was on 45 L high-flow with 50% FiO2 06/30: patient is on 55 L with 45% FiO2 07/01: patient was on 55 L with 75% FiO2 07/02 Patient on 50 L with 45% FiO2 with saturations 92%. chest x-ray shows improved bilateral interstitial infiltrates. At this time I will continue high-flow nasal cannula and noninvasive ventilation with BiPAP rate of 12, 18/10 and 40% at night. Patient has been on prednisone 40 mg p.o. q.day since 06/23/2022 and I will discontinue today. Patient had 1 dose of vancomycin and cefepime on 06/21, ceftriaxone 06/21 through 06/27 (7 days), doxycycline 06/23 through 06/28 (6 days) and cefepime from 06/29 through today (day 5). 07/03 patient did not wear BiPAP last night. Overall she has no complaints. She does desaturate when she exerts herself. She said she has slept well has no cough and no phlegm production. When I examined the patient she was on high-flow nasal cannula 45 L at 35% FiO2 with saturations 91%. She has since been changed to high-flow nasal cannula at 11 L with saturations 94%. BNP was 1370. CT scan of the chest shows resolved ground-glass infiltrates, resolved right pleural effusion, new continued patchy confluent infiltrates bilaterally that are improved. Plan: Continue cefepime, day 6. Continue Lasix 20 mg IV b.i.d.. discussed with Dr. Godoy, will follow with you. (2) Chronic obstructive pulmonary disease: Code(s): J44.9 - Chronic obstructive pulmonary disease, unspecified Status: Acute Assessment and Plan: patient carries a history of COPD, CT scan chest on 05/30/2022 with mild apical predominant centrilobular emphysema. I have no PFTs. 07/02/2022: There are no wheezing on exam. Patient is on Anoro Ellipta 62.5-25 at 1 puff q.day, budesonide 0.5 mg nebs q.12 hours, and was on prednisone 40 mg p.o. q.day from 06/23 through 07/02. 07/03 She has no wheezes. Continue Anoro and I will discontinue budesonide nebulizers. (3) Fluid overload: Code(s): E87.70 - Fluid overload, unspecified Status: Acute Assessment and Plan: patient presented on 06/21/2022 with possible congestion on her CT scan, BNP of 5030 and was diuresed with Lasix. echocardiogram on 05/31/2022 demonstrates normal LV function 65-70%, grade 1 diastolic dysfunction, moderate aortic valve sclerosis, mild aortic valve stenosis with a mean gradient of 8 and an aortic valve area of 2.0. Normal right ventricular function and size, normal right atrial size, no cry to tricuspid regurgitation and RVSP of 34. She had a negative bubble study on 06/23/2022. On 06/29/2022 her BNP was 662. Admission weight was 68 kilos, on 07/02 she weighs 63 kilos and her ins and outs demonstrates she is -3.1 8 L negative on Lasix 20 IV b.i.d. 07/03 Patient is on Lasix 20 IV b.i.d. and accumulative diuresis is -4.4 L since admission. BNP today was 1370. CT scan shows improved congestion. Subjective Date/time seen: 07/03/22 12:49 Interval history: 06/22/2022: New consult: NEW: Cinyd Estrada is an 87-year-old woman admitted with hypoxemia without distress. 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 treated with papito
[2022-07-03] MEDS: CEFEPIME 2 GM/NS 50 ML 2 GM/50 ML BAG IVPB ×2 (13:00→23:59)
[2022-07-04] VITALS (14 sets, daily range): BP systolic 97–119; BP diastolic 46–55; PULSE 58–70; RESP 16–20; TEMP 36.4–36.8; O2SAT 92–97
[2022-07-04] MEDS: CENTRAL LINE FLUSH 10 ML IV PUSH ×4 (04:58→20:06)
[2022-07-04] MEDS: LEVOTHYROXINE SODIUM 125 MCG TABLET PO (04:58)
[2022-07-04 05:17] LABS: Basophils Absolute Auto 0.1 K/mm3 (0.0-0.1); Basophils Percent Auto 0.5 % (0.2-1.2); Eosinophils Absolute Auto 0.1 K/mm3 (0-0.3); Eosinophils Percent Auto 1.1 % (0-4.4); Hematocrit 44.3 % (37.0-47.0); Hemoglobin 13.9 g/dL (12.0-15.0); Immature Granulocyte Percent A 2.5 % (0-0.5); Lymphocytes Absolute Auto 0.58 K/mm3 (0.9-3.2); Lymphocytes Percent Auto 4.8 % (18.3-44.2); Mean Corpuscular HGB Conc 31.4 g/dl (32-36); Mean Corpuscular Hemoglobin 29.1 pg (26-34); Mean Corpuscular Volume 92.9 fl (80-100); Mean Platelet Volume 9.5 fl (7.4-10.4); Monocytes Absolute Auto 0.3 K/mm3 (0.1-0.6); Monocytes Percent Auto 2.8 % (2.6-8.5); Neutrophils Absolute Auto 10.8 K/mm3 (1.3-6.7); Neutrophils Percent Auto 88.3 % (45.5-73.1); Platelet Count Result 367 k/mm3 (150-375); Red Blood Count 4.77 M/mm3 (4.2-5.4); Red Cell Distribution Width 17.1 % (11.5-14.5); White Blood Count 12.2 K/mm3 (4.5-10.0)
[2022-07-04 05:24] LABS: Alanine Aminotransferase 35 U/L (6-35); Albumin Level 3.1 g/dL (3.5-5.1); Alkaline Phosphatase 50 U/L (38-126); Aspartate Amino Transferase 33 U/L (14-36); Bilirubin,Total 0.5 mg/dL (0.2-1.3); Blood Urea Nitrogen 27 mg/dL (7-17); Calcium 8.7 mg/dL (8.4-10.2); Carbon Dioxide > 40 mmol/L (22-30); Chloride 90 mmol/L (98-107); Estimated CRCL calculation 30 ml/min; Estimated Glomerular Filt Rate 53; Glucose 75 mg/dL (65-110); Magnesium 2.2 mg/dL (1.6-2.3); Potassium 3.6 mmol/L (3.4-5.0); Sodium 130 mmol/L (137-145)
--- NOTE | 2022-07-04 08:58 | PM.PNPUL ---
Progress Note: A&P Assessment and Plan (1) Acute on chronic respiratory failure with hypoxia and hypercapnia: Code(s): J96.21 - Acute and chronic respiratory failure with hypoxia; J96.22 - Acute and chronic respiratory failure with hypercapnia Status: Acute Assessment and Plan: Patient with acute and chronic respiratory failure with hypoxia and hypercarbia. Etiology includes underlying COPD, pneumonia, and fluid overload. She has been treated with Antibiotics, steroids, bronchodilators and IV Lasix. covid, influenza and RSV negative on 06/21/2022. Repeat covid on 06/26/2022. 06/23 at worst hypoxia the patient required BiPAP / and 100% FiO2 for sats of 88%. Patient was treated for bacterial pneumonia and for fluid overload with IV Lasix. 06/29: patient was on 45 L high-flow with 50% FiO2 06/30: patient is on 55 L with 45% FiO2 07/01: patient was on 55 L with 75% FiO2 07/02 Patient on 50 L with 45% FiO2 with saturations 92%. chest x-ray shows improved bilateral interstitial infiltrates. At this time I will continue high-flow nasal cannula and noninvasive ventilation with BiPAP rate of 12, 18/10 and 40% at night. Patient has been on prednisone 40 mg p.o. q.day since 06/23/2022 and I will discontinue today. Patient had 1 dose of vancomycin and cefepime on 06/21, ceftriaxone 06/21 through 06/27 (7 days), doxycycline 06/23 through 06/28 (6 days) and cefepime from 06/29 through today (day 5). 07/03 patient did not wear BiPAP last night. Overall she has no complaints. She does desaturate when she exerts herself. She said she has slept well has no cough and no phlegm production. When I examined the patient she was on high-flow nasal cannula 45 L at 35% FiO2 with saturations 91%. She has since been changed to high-flow nasal cannula at 11 L with saturations 94%. BNP was 1370. CT scan of the chest shows resolved ground-glass infiltrates, resolved right pleural effusion, continued patchy confluent infiltrates bilaterally that are improved. 07/04 Patient said she slept well. States her breathing is normal. She has no cough. White blood cell count 12.2, creatinine 1.0. Patient is on 8 L nasal cannula saturations 93%. Plan: Continue cefepime, day 7. Continue Lasix 20 mg IV b.i.d.. will follow with you. (2) Chronic obstructive pulmonary disease: Code(s): J44.9 - Chronic obstructive pulmonary disease, unspecified Status: Acute Assessment and Plan: patient carries a history of COPD, CT scan chest on 05/30/2022 with mild apical predominant centrilobular emphysema. I have no PFTs. 07/02/2022: There are no wheezing on exam. Patient is on Anoro Ellipta 62.5-25 at 1 puff q.day, budesonide 0.5 mg nebs q.12 hours, and was on prednisone 40 mg p.o. q.day from 06/23 through 07/02. 07/03 She has no wheezes. Continue Anoro and I will discontinue budesonide nebulizers. 07/04 No wheezes, continue Anoro. (3) Fluid overload: Code(s): E87.70 - Fluid overload, unspecified Status: Acute Assessment and Plan: patient presented on 06/21/2022 with possible congestion on her CT scan, BNP of 5030 and was diuresed with Lasix. echocardiogram on 05/31/2022 demonstrates normal LV function 65-70%, grade 1 diastolic dysfunction, moderate aortic valve sclerosis, mild aortic valve stenosis with a mean gradient of 8 and an aortic valve area of 2.0. Normal right ventricular function and size, normal right atrial size, no cry to tricuspid regurgitation and RVSP of 34. She had a negative bubble study on 06/23/2022. On 06/29/2022 her BNP was 662. Admission weight was 68 kilos, on 07/02 she weighs 63 kilos and her ins and outs demonstrates she is -3.18 L negative on Lasix 20 IV b.i.d. Creatinine 0.7. 07/03 Patient is on Lasix 20 IV b.i.d. and accumulative diuresis is minus 4.4 L since admission. BNP today was 1370. CT scan shows improved congestion. creatinine 0.7. 07/04 She is on Lasix 20 IV b.i.d.,
[2022-07-04] MEDS: APIXABAN 2.5 MG TABLET PO ×2 (09:08→20:06)
[2022-07-04] MEDS: acetaZOLAMIDE TAB 250 MG TABLET 500 MG PO (09:08)
[2022-07-04] MEDS: UMECLIDINIUM/VILANTEROL 62.5-25 MCG ELLIPTA 1 PUFF INHALATION (09:28)
--- NOTE | 2022-07-04 11:12 | PCNWS ---
Weekly nutritional screen. Patient is tolerating current diet with adequate intake. No weight loss reported. No nutritional needs at this time.
[2022-07-04] MEDS: CEFEPIME 2 GM/NS 50 ML 2 GM/50 ML BAG IVPB (12:27)
--- NOTE | 2022-07-04 15:04 | PM.IMPN ---
Progress Note: A&P Assessment and Plan (1) Pneumonia: Code(s): J18.9 - Pneumonia, unspecified organism Status: Acute (2) Atrial fibrillation with rapid ventricular response: Code(s): I48.91 - Unspecified atrial fibrillation Status: Acute (3) Chronic obstructive pulmonary disease: Code(s): J44.9 - Chronic obstructive pulmonary disease, unspecified Status: Acute (4) Acute on chronic respiratory failure with hypoxia and hypercapnia: Code(s): J96.21 - Acute and chronic respiratory failure with hypoxia; J96.22 - Acute and chronic respiratory failure with hypercapnia Status: Acute Plan 87 yo female former smoker with history of NHL and newly detected COPD with evidence of chronic hypoxemic and hypercapnic respiratory failure during a recent hospitalization who presented to the ED from home for evaluation of hypoxia. COVID, FLu, RSV was negative. Pulmonary was consulted,treated with abx, had 1 dose of vancomycin and cefepime on 06/21, ceftriaxone 06/21 through 06/27 (7 days), doxycycline 06/23 through 06/28 (6 days) and cefepime from 06/29 through today (day 5). CT scan of the chest shows? resolved ground-glass infiltrates, resolved right pleural effusion, continued patchy confluent infiltrates bilaterally that are improved. 1)Acute on Chronic Resp Failure with Hypoxia and Hypercarbia: C/w O2 support Pulmonary following Can stop cefepime after total 7 days Holding lasix today, will likely resume at once a day frequency when appropriate c/w diamoz c/w Bronchodilators Will try to wean off O2 support as tolerated 2)New Onset Afibb with RVR: Currently on Sotalol c/w Eliquis 3)Hyponatremia: Monitor Na Likely developing contraction alkalosis Hold lasix for now 4)DVT ppx: Eliquis 5)Code:Full 6)Dispo:pending improvement in hypoxia Time Spent With Patient Time with patient: 25 - 35 minutes Subjective Date/time seen: 07/04/22 15:04 Interval history: no acute events overnight Review of Systems Review of Systems: All systems reviewed & are unremarkable except as noted in HPI and below Exam Narrative: General: Elderly lady on Airvo sitting on the chair not in acute distress Chest - decreased BS in the bases ? No wheezes CV - RRR S1/S2. Abd - Soft, NT/ND, Positive BS Psych - Nml mood and affect Skin - Warm and dry Objective Data Vital Signs Vital Signs: Vital Signs - 24 hr 07/03/22 15:38 07/03/22 16:00 07/03/22 16:00 Temperature 97.9 F Pulse Rate 67 62 Respiratory Rate 18 Blood Pressure 113/80 Pulse Oximetry 96 95 Oxygen Delivery High Flow Therapy with Na Oxygen Flow Rate 10 Fraction of Inspired Oxygen 07/03/22 18:00 07/03/22 20:00 07/03/22 20:35 Temperature 98.7 F Pulse Rate 66 121 H Respiratory Rate 22 H Blood Pressure 125/60 Pulse Oximetry 99 97 Oxygen Delivery High Flow Nasal Cannula Oxygen Flow Rate 8 Fraction of Inspired Oxygen 07/03/22 20:00 07/03/22 21:35 07/03/22 20:00 Temperature Pulse Rate 61 66 63 Respiratory Rate 22 H Blood Pressure Pulse Oximetry 97 Oxygen Delivery High Flow Nasal Cannula Oxygen Flow Rate 8 Fraction of Inspired Oxygen 35 07/03/22 22:00 07/03/22 23:58 07/04/22 00:00 Temperature 96.9 F L Pulse Rate 57 L 63 64 Respiratory Rate 18 Blood Pressure 102/43 L Pulse Oximetry 96 Oxygen Delivery Oxygen Flow Rate Fraction of Inspired Oxygen 07/04/22 00:00 07/04/22 02:00 07/04/22 04:00 Temperature Pulse Rate 64 58 L 66 Respiratory Rate 18 Blood Pressure Pulse Oximetry 96 Oxygen Delivery High Flow Nasal Cannula Oxygen Flow Rate 8 Fraction of Inspired Oxygen 35 07/04/22 04:00 07/04/22 04:00 07/04/22 05:55 Temperature 97.6 F Pulse Rate 58 L 60 61 Respiratory Rate 18 16 Blood Pressure 106/55 L Pulse Oximetry 96 96 Oxygen Delivery High Flow Nasal Cannula Oxygen Flow Rate 8 Fraction of Inspired Oxygen 35 07/04
[2022-07-05] VITALS (9 sets, daily range): BP systolic 98–130; BP diastolic 45–67; PULSE 65–82; RESP 16–24; TEMP 36.3–36.8; O2SAT 90–95
[2022-07-05] MEDS: CENTRAL LINE FLUSH 10 ML IV PUSH ×4 (05:37→20:21)
[2022-07-05] MEDS: LEVOTHYROXINE SODIUM 125 MCG TABLET PO (05:37)
[2022-07-05 06:06] LABS: Basophils Absolute Auto 0.1 K/mm3 (0.0-0.1); Basophils Percent Auto 0.8 % (0.2-1.2); Eosinophils Absolute Auto 0.2 K/mm3 (0-0.3); Eosinophils Percent Auto 1.5 % (0-4.4); Hematocrit 41.9 % (37.0-47.0); Hemoglobin 13.2 g/dL (12.0-15.0); Immature Granulocyte Absolute 0.28 K/mm3 (0.00-0.031); Immature Granulocyte Percent A 2.7 % (0-0.5); Lymphocytes Absolute Auto 0.48 K/mm3 (0.9-3.2); Lymphocytes Percent Auto 4.7 % (18.3-44.2); Mean Corpuscular HGB Conc 31.5 g/dl (32-36); Mean Corpuscular Hemoglobin 29.3 pg (26-34); Mean Corpuscular Volume 93.1 fl (80-100); Mean Platelet Volume 9.8 fl (7.4-10.4); Monocytes Absolute Auto 0.3 K/mm3 (0.1-0.6); Monocytes Percent Auto 3.3 % (2.6-8.5); Platelet Count Result 311 k/mm3 (150-375); Red Cell Distribution Width 17.1 % (11.5-14.5); White Blood Count 10.3 K/mm3 (4.5-10.0)
[2022-07-05 06:08] LABS: Anion Gap 0 mmol/L (8-16); Blood Urea Nitrogen 25 mg/dL (7-17); Calcium 8.5 mg/dL (8.4-10.2); Carbon Dioxide 36 mmol/L (22-30); Chloride 93 mmol/L (98-107); Estimated CRCL calculation 33 ml/min; Estimated Glomerular Filt Rate 60; Glucose 74 mg/dL (65-110); Potassium 3.5 mmol/L (3.4-5.0); Sodium 129 mmol/L (137-145)
--- NOTE | 2022-07-05 06:13 | PC.NURSE ---
I MONITORED THE CHARTING AND MEDICATION DISPENSING ON THIS PATIENT DONE BY ALETHA SOMMERS RN AND I AGREE WITH EVERYTHING.
[2022-07-05] MEDS: UMECLIDINIUM/VILANTEROL 62.5-25 MCG ELLIPTA 1 PUFF INHALATION (07:20)
--- NOTE | 2022-07-05 07:52 | PM.IMPN ---
Progress Note: A&P Assessment and Plan (1) Pneumonia: Code(s): J18.9 - Pneumonia, unspecified organism Status: Acute (2) Atrial fibrillation with rapid ventricular response: Code(s): I48.91 - Unspecified atrial fibrillation Status: Acute (3) Chronic obstructive pulmonary disease: Code(s): J44.9 - Chronic obstructive pulmonary disease, unspecified Status: Acute (4) Acute on chronic respiratory failure with hypoxia and hypercapnia: Code(s): J96.21 - Acute and chronic respiratory failure with hypoxia; J96.22 - Acute and chronic respiratory failure with hypercapnia Status: Acute Plan 87 yo female former smoker with history of NHL and newly detected COPD with evidence of chronic hypoxemic and hypercapnic respiratory failure during a recent hospitalization who presented to the ED from home for evaluation of hypoxia. COVID, FLu, RSV was negative. Pulmonary was consulted,treated with abx, had 1 dose of vancomycin and cefepime on 06/21, ceftriaxone 06/21 through 06/27 (7 days), doxycycline 06/23 through 06/28 (6 days) and cefepime from 06/29 through today (day 5). CT scan of the chest shows? resolved ground-glass infiltrates, resolved right pleural effusion, continued patchy confluent infiltrates bilaterally that are improved. 1)Acute on Chronic Resp Failure with Hypoxia and Hypercarbia: C/w O2 support Pulmonary following Can stop cefepime after total 7 days Holding lasix today, will likely resume at once a day frequency when appropriate c/w diamoz c/w Bronchodilators Will try to wean off O2 support as tolerated 2)New Onset Afibb with RVR: Currently on Sotalol c/w Eliquis Currently patient has a sinus rhythm 3)Hyponatremia: Monitor Na Likely developing contraction alkalosis Hold lasix for now 4)DVT ppx: Eliquis 5)Code:Full 6)Dispo:pending improvement in hypoxia Subjective Date/time seen: 07/05/22 07:52 I saw and examined patient today. Patient feels dyspnea continuing to improve. no new issues or events overnight. Patient is afebrile, hemodynamically stable Exam Narrative: General: Elderly lady on Airvo sitting on the chair not in acute distress Chest - decreased BS in the bases ? No wheezes CV - RRR S1/S2. Abd - Soft, NT/ND, Positive BS Psych - Nml mood and affect Skin - Warm and dry Objective Data Vital Signs Vital Signs: Vital Signs - 24 hr 07/04/22 08:00 07/04/22 09:31 07/04/22 08:00 Temperature 97.7 F Pulse Rate 58 L 68 Respiratory Rate 20 Blood Pressure 97/46 L Pulse Oximetry 94 96 Oxygen Delivery High Flow Nasal Cannula Oxygen Flow Rate 8 07/04/22 10:00 07/04/22 08:00 07/04/22 11:02 Temperature Pulse Rate 64 Respiratory Rate Blood Pressure Pulse Oximetry 94 97 Oxygen Delivery High Flow Nasal Cannula High Flow Nasal Cannula Oxygen Flow Rate 8 5 07/04/22 12:00 07/04/22 12:00 07/04/22 12:00 Temperature 98.2 F Pulse Rate 66 65 Respiratory Rate 20 Blood Pressure 107/48 L Pulse Oximetry 92 94 Oxygen Delivery High Flow Nasal Cannula Oxygen Flow Rate 4 07/04/22 14:29 07/04/22 14:00 07/04/22 16:00 Temperature Pulse Rate 68 65 Respiratory Rate Blood Pressure Pulse Oximetry 94 Oxygen Delivery High Flow Nasal Cannula Oxygen Flow Rate 4 07/04/22 16:00 07/04/22 20:00 07/04/22 20:00 Temperature 97.9 F 97.8 F Pulse Rate 70 69 64 Respiratory Rate 20 18 Blood Pressure 119/51 L 103/52 L Pulse Oximetry 93 94 Oxygen Delivery Oxygen Flow Rate 07/04/22 20:00 07/05/22 00:00 07/05/22 00:00 Temperature 97.7 F Pulse Rate 65 68 Respiratory Rate 16 Blood Pressure 104/49 L Pulse Oximetry 94 93 Oxygen Delivery Nasal Cannula Oxygen Flow Rate 3 07/05/22 04:00 07/05/22 04:00 07/04/22 21:10 Temperature 97.4 F L Pulse Rate 65 67 Respiratory Rate 18 Blood Pressure 107/48 L Pulse Oximetry 94 92 Oxygen Delivery High Flow Nasal Cannula Oxygen Flow
[2022-07-05 08:10] LABS: Burr Cells 1+ (NORMAL); Platelet Estimate Adequate (Adequate); Poikilocytosis 1+ (NORMAL)
[2022-07-05 08:11] LABS: Anisocytosis 1+ (NORMAL); Schistocytes None Seen (NORMAL); Spherocytes 1+ (NORMAL)
--- NOTE | 2022-07-05 09:02 | PM.PNPUL ---
Progress Note: A&P Assessment and Plan (1) Acute on chronic respiratory failure with hypoxia and hypercapnia: Code(s): J96.21 - Acute and chronic respiratory failure with hypoxia; J96.22 - Acute and chronic respiratory failure with hypercapnia Status: Acute Assessment and Plan: Patient with acute and chronic respiratory failure with hypoxia and hypercarbia. Etiology includes underlying COPD, pneumonia, and fluid overload. She has been treated with Antibiotics, steroids, bronchodilators and IV Lasix. covid, influenza and RSV negative on 06/21/2022. Repeat covid on 06/26/2022. 06/23 at worst hypoxia the patient required BiPAP / and 100% FiO2 for sats of 88%. Patient was treated for bacterial pneumonia and for fluid overload with IV Lasix. 06/29: patient was on 45 L high-flow with 50% FiO2 06/30: patient is on 55 L with 45% FiO2 07/01: patient was on 55 L with 75% FiO2 07/02 Patient on 50 L with 45% FiO2 with saturations 92%. chest x-ray shows improved bilateral interstitial infiltrates. At this time I will continue high-flow nasal cannula and noninvasive ventilation with BiPAP rate of 12, 18/10 and 40% at night. Patient has been on prednisone 40 mg p.o. q.day since 06/23/2022 and I will discontinue today. Patient had 1 dose of vancomycin and cefepime on 06/21, ceftriaxone 06/21 through 06/27 (7 days), doxycycline 06/23 through 06/28 (6 days) and cefepime from 06/29 through today (day 5). 07/03 patient did not wear BiPAP last night. Overall she has no complaints. She does desaturate when she exerts herself. She said she has slept well has no cough and no phlegm production. When I examined the patient she was on high-flow nasal cannula 45 L at 35% FiO2 with saturations 91%. She has since been changed to high-flow nasal cannula at 11 L with saturations 94%. BNP was 1370. CT scan of the chest shows resolved ground-glass infiltrates, resolved right pleural effusion, continued patchy confluent infiltrates bilaterally that are improved. 07/04 Patient said she slept well. States her breathing is normal. She has no cough. White blood cell count 12.2, creatinine 1.0. Patient is on 8 L nasal cannula saturations 93%. Lasix held. Last dose of cefepime (day 7 ) 07/05 patient feels well and has no respiratory complaints. Currently she is on 4 L nasal cannula saturations 92%. White blood cell count 10.3, creatinine 0.9. chest x-ray demonstrated unchanged mild interstitial infiltrates. Plan: I will perform overnight oximetry on 4 L in anticipation of discharge home on 07/06. Discussed with Dr. Mendoza, will follow with you. (2) Chronic obstructive pulmonary disease: Code(s): J44.9 - Chronic obstructive pulmonary disease, unspecified Status: Acute Assessment and Plan: patient carries a history of COPD, CT scan chest on 05/30/2022 with mild apical predominant centrilobular emphysema. I have no PFTs. 07/02/2022: There are no wheezing on exam. Patient is on Anoro Ellipta 62.5-25 at 1 puff q.day, budesonide 0.5 mg nebs q.12 hours, and was on prednisone 40 mg p.o. q.day from 06/23 through 07/02. 07/03 She has no wheezes. Continue Anoro and I will discontinue budesonide nebulizers. 07/04 No wheezes, continue Anoro. 07/05 No wheezes continue Anoro. (3) Fluid overload: Code(s): E87.70 - Fluid overload, unspecified Status: Acute Assessment and Plan: Patient presented on 06/21/2022 with new onset AFIB/RVR and possible congestion on her CT scan, BNP of 5030 and was diuresed with Lasix. echocardiogram on 05/31/2022 demonstrates normal LV function 65-70%, grade 1 diastolic dysfunction, moderate aortic valve sclerosis, mild aortic valve stenosis with a mean gradient of 8 and an aortic valve area of 2.0. Normal right ventricular function and size, normal right atrial size, no cry to tricuspid regurgitation and RVSP of 34. She had a negative bubble study on 06/23/2022. On 06/29/2022 her BN
[2022-07-05] MEDS: polyethylene glycoL 3350 17 GM POWD.PACK PO (09:15)
[2022-07-05] MEDS: acetaZOLAMIDE TAB 250 MG TABLET 500 MG PO (09:15)
[2022-07-05] MEDS: APIXABAN 2.5 MG TABLET PO ×2 (09:15→20:20)
[2022-07-06] VITALS (17 sets, daily range): BP systolic 100–128; BP diastolic 43–57; PULSE 62–77; RESP 18–20; TEMP 36.2–37; O2SAT 87–95
[2022-07-06] MEDS: LEVOTHYROXINE SODIUM 125 MCG TABLET PO (05:27)
[2022-07-06] MEDS: CENTRAL LINE FLUSH 10 ML IV PUSH ×3 (05:28→21:01)
--- NOTE | 2022-07-06 07:44 | PM.IMPN ---
Progress Note: A&P Assessment and Plan (1) Pneumonia: Code(s): J18.9 - Pneumonia, unspecified organism Status: Acute (2) Atrial fibrillation with rapid ventricular response: Code(s): I48.91 - Unspecified atrial fibrillation Status: Acute (3) Chronic obstructive pulmonary disease: Code(s): J44.9 - Chronic obstructive pulmonary disease, unspecified Status: Acute (4) Acute on chronic respiratory failure with hypoxia and hypercapnia: Code(s): J96.21 - Acute and chronic respiratory failure with hypoxia; J96.22 - Acute and chronic respiratory failure with hypercapnia Status: Acute Plan 87 yo female former smoker with history of NHL and newly detected COPD with evidence of chronic hypoxemic and hypercapnic respiratory failure during a recent hospitalization who presented to the ED from home for evaluation of hypoxia. COPD exacerbation COVID, FLu, RSV was negative. 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 CT scan of the chest shows? resolved ground-glass infiltrates, resolved right pleural effusion, continued patchy confluent infiltrates bilaterally that are improved. 1)Acute on Chronic Resp Failure with Hypoxia and Hypercarbia: C/w O2 support Pulmonary following stop cefepime after total 7 days fluid overload, patient is on Lasix 20 mg b.i.d. IV push c/w Bronchodilators Will try to wean off O2 support as tolerated 2)New Onset Afibb with RVR: Currently on Sotalol c/w Eliquis Currently patient has a sinus rhythm 3)Hyponatremia: Monitor Na resulting from diuretic medications sodium level is trending down start sodium chloride 2 g b.i.d. p.o. follow-up BMP 4)DVT ppx: Eliquis 5)Code:Full 6)Dispo:pending improvement in hypoxia Subjective Date/time seen: 07/06/22 07:44 saw examined patient today. Patient feels dyspnea is improving. Still has general weakness. No new issue events over the night Exam Narrative: General: Elderly lady on Airvo sitting on the chair not in acute distress Chest - decreased BS in the bases ? No wheezes CV - RRR S1/S2. Abd - Soft, NT/ND, Positive BS Psych - Nml mood and affect Skin - Warm and dry general weakness, no focal weakness Objective Data Vital Signs Vital Signs: Vital Signs - 24 hr 07/05/22 08:00 07/05/22 08:00 07/05/22 08:00 Temperature 97.9 F Pulse Rate 82 76 Respiratory Rate 24 H Blood Pressure 118/50 L Pulse Oximetry 91 95 Oxygen Delivery High Flow Nasal Cannula Oxygen Flow Rate 3 Fraction of Inspired Oxygen 07/05/22 11:13 07/05/22 12:00 07/05/22 12:00 Temperature 98.3 F Pulse Rate 80 76 Respiratory Rate 20 Blood Pressure 114/67 Pulse Oximetry 92 Oxygen Delivery Nasal Cannula Oxygen Flow Rate 4 Fraction of Inspired Oxygen 07/05/22 16:00 07/05/22 16:00 07/05/22 18:41 Temperature 98.3 F 97.8 F Pulse Rate 71 78 80 Respiratory Rate 16 18 Blood Pressure 98/45 L 130/60 Pulse Oximetry 94 91 Oxygen Delivery Oxygen Flow Rate Fraction of Inspired Oxygen 07/05/22 19:46 07/05/22 20:00 07/05/22 20:00 Temperature 98.1 F Pulse Rate 74 68 68 Respiratory Rate 20 20 Blood Pressure 113/54 L Pulse Oximetry 92 92 Oxygen Delivery Nasal Cannula Oxygen Flow Rate 3 Fraction of Inspired Oxygen 35 07/06/22 00:00 07/06/22 04:00 07/06/22 04:42 Temperature Pulse Rate 62 66 Respiratory Rate Blood Pressure Pulse Oximetry 93 Oxygen Delivery Nasal Cannula Oxygen Flow Rate 4 Fraction of Inspired Oxygen 07/06/22 04:00 Temperature 97.1 F L Pulse Rate 70 Respiratory Rate 20 Blood Pressure 100/48 L Pulse Oximetry 92 Oxygen Delivery Oxygen Flow Rate Fraction of Inspired Oxygen Intake/Output Intake/Output: Intake & Output 0
[2022-07-06 08:00] LABS: Hematocrit 39.2 % (37.0-47.0); Hemoglobin 12.8 g/dL (12.0-15.0); Mean Corpuscular HGB Conc 32.7 g/dl (32-36); Mean Corpuscular Volume 88.7 fl (80-100); Mean Platelet Volume 9.8 fl (7.4-10.4); Platelet Count Result 256 k/mm3 (150-375); Red Blood Count 4.42 M/mm3 (4.2-5.4); Red Cell Distribution Width 16.8 % (11.5-14.5)
[2022-07-06 08:10] LABS: Anion Gap -2 mmol/L (8-16); Blood Urea Nitrogen 24 mg/dL (7-17); Calcium 8.4 mg/dL (8.4-10.2); Carbon Dioxide 35 mmol/L (22-30); Chloride 95 mmol/L (98-107); Estimated CRCL calculation 33 ml/min; Estimated Glomerular Filt Rate 60; Glucose 82 mg/dL (65-110); Potassium 4.1 mmol/L (3.4-5.0); Sodium 128 mmol/L (137-145)
[2022-07-06] MEDS: UMECLIDINIUM/VILANTEROL 62.5-25 MCG ELLIPTA 1 PUFF INHALATION (08:21)
[2022-07-06] MEDS: APIXABAN 2.5 MG TABLET PO ×2 (08:26→21:02)
[2022-07-06] MEDS: polyethylene glycoL 3350 17 GM POWD.PACK PO (08:26)
--- NOTE | 2022-07-06 09:27 | PM.PNPUL ---
Progress Note: A&P Assessment and Plan (1) Acute on chronic respiratory failure with hypoxia and hypercapnia: Code(s): J96.21 - Acute and chronic respiratory failure with hypoxia; J96.22 - Acute and chronic respiratory failure with hypercapnia Status: Acute Assessment and Plan: Patient with acute and chronic respiratory failure with hypoxia and hypercarbia. Etiology includes underlying COPD, pneumonia, and fluid overload. She has been treated with Antibiotics, steroids, bronchodilators and IV Lasix. covid, influenza and RSV negative on 06/21/2022. Repeat covid on 06/26/2022. 06/23 at worst hypoxia the patient required BiPAP / and 100% FiO2 for sats of 88%. Patient was treated for bacterial pneumonia and for fluid overload with IV Lasix. 06/29: patient was on 45 L high-flow with 50% FiO2 06/30: patient is on 55 L with 45% FiO2 07/01: patient was on 55 L with 75% FiO2 07/02 Patient on 50 L with 45% FiO2 with saturations 92%. chest x-ray shows improved bilateral interstitial infiltrates. At this time I will continue high-flow nasal cannula and noninvasive ventilation with BiPAP rate of 12, 18/10 and 40% at night. Patient has been on prednisone 40 mg p.o. q.day since 06/23/2022 and I will discontinue today. Patient had 1 dose of vancomycin and cefepime on 06/21, ceftriaxone 06/21 through 06/27 (7 days), doxycycline 06/23 through 06/28 (6 days) and cefepime from 06/29 through today (day 5). 07/03 patient did not wear BiPAP last night. Overall she has no complaints. She does desaturate when she exerts herself. She said she has slept well has no cough and no phlegm production. When I examined the patient she was on high-flow nasal cannula 45 L at 35% FiO2 with saturations 91%. She has since been changed to high-flow nasal cannula at 11 L with saturations 94%. BNP was 1370. CT scan of the chest shows resolved ground-glass infiltrates, resolved right pleural effusion, continued patchy confluent infiltrates bilaterally that are improved. 07/04 Patient said she slept well. States her breathing is normal. She has no cough. White blood cell count 12.2, creatinine 1.0. Patient is on 8 L nasal cannula saturations 93%. Lasix held. Last dose of cefepime (day 7 ) 07/05 patient feels well and has no respiratory complaints. Currently she is on 4 L nasal cannula saturations 92%. White blood cell count 10.3, creatinine 0.9. chest x-ray demonstrated unchanged mild interstitial infiltrates. 07/06 patient without any respiratory complaints. Currently she is on 3 L nasal cannula saturations 90%. Patient had an overnight oximetry on 4 L nasal cannula with an average saturation of 92%, low saturation 80%, time with saturation less than or equal to 88% was 6 minutes, oxygen desaturation index was 1.0. Patient is ready to be discharged from a pulmonary perspective on these pulmonary medications: Anoro Ellipta 62.5-25 at 1 puff q.day Rescue albuterol 2 puffs q.4 hours p.r.n. shortness of breath or wheezing Oxygen 5 L nasal cannula at night and when she sleeps per overnight oximetry on 07/06/2022 Oxygen at rest and with ambulation per formal home O2 assessment which I have ordered. Diuretics per hospitalist team. Follow up in Pulmonary Clinic in 3-4 weeks. I gave her our business card and informed our construction scheduler. Discussed with Dr. Mendoza, will follow with you. (2) Chronic obstructive pulmonary disease: Code(s): J44.9 - Chronic obstructive pulmonary disease, unspecified Status: Acute Assessment and Plan: patient carries a history of COPD, CT scan chest on 05/30/2022 with mild apical predominant centrilobular emphysema. I have no PFTs. 07/02/2022: There are no wheezing on exam. Patient is on Anoro Ellipta 62.5-25 at 1 puff q.day, budesonide 0.5 mg nebs q.12 hours, and was on prednisone 40 mg p.o. q.day from 06/23 through 07/02. 07/03 She has no wheezes. Continue Anoro and I will discontinue budesonide nebulizers.
[2022-07-06] MEDS: SODIUM CHLORIDE 1 GM TABLET 2 GM PO ×2 (10:10→16:55)
--- NOTE | 2022-07-06 12:37 | HOMEO2EVAL ---
Evaluation was performed at [facility] Home Oxygen Evaluation RC: Home Oxygen (O2) Evaluation Start: 07/06/22 08:29 Freq: ONCE Status: Active Protocol: RPE Activity Type Activity Date Activity User E-sign Co-sign Detail Recorded Client Recorded Date Recorded By Document 07/06/22 11:00 TAB [email or web address] 07/06/22 12:36 TAB Document 07/06/22 11:01 TAB [email or web address] 07/06/22 12:36 TAB Document 07/06/22 11:02 TAB [email or web address] 07/06/22 12:36 TAB Document 07/06/22 11:03 TAB [email or web address]_012 07/06/22 12:36 TAB Document 07/06/22 11:10 TAB [email or web address]_012 07/06/22 12:36 TAB Document 07/06/22 11:15 TAB [email or web address] 07/06/22 12:36 TAB 07/06/22 07/06/22 07/06/22 11:00 11:01 11:02 Home O2 Evaluation [Oxygen] -Test Phase Resting Resting Resting -Oxygen Delivery Room Air Nasal Cannula Nasal Cannula -Oxygen Flow Rate (L/min) 1 2 [Pulse Oximetry] -Pulse Oximetry (90-100 %) 87 L 87 L 87 L [Comments] -Home Oxygen Evaluation Comments [Charges] -Treatment Charges O2 Evaluation - Inpatient 07/06/22 07/06/22 07/06/22 11:03 11:10 11:15 Home O2 Evaluation [Oxygen] -Test Phase Resting Exercise Resting -Oxygen Delivery Nasal Cannula Nasal Cannula Nasal Cannula -Oxygen Flow Rate (L/min) 3 3 3 [Pulse Oximetry] -Pulse Oximetry (90-100 %) 91 89 L 92 [Comments] -Home Oxygen Evaluation Comments PATIENT REQUIRES 3 L AT REST AND WITH ACTIVITY [Charges] -Treatment Charges
--- NOTE | 2022-07-06 14:22 | PCNWS ---
Weekly nutritional screen. Patient is tolerating current diet with adequate intake. No nutritional needs at this time. Noted - weight loss of 7 lbs/5% since admission (x 14 days) likely due to fluid. Patient had +1 edema and now with no edema. Lasix ordered.
--- NOTE | 2022-07-06 15:07 | PCRCNOTE ---
Home o2 is with [facility]. Her previous visit in May was set up with [facility] at that time. a new order was written with the nocturnal O2 needs at 5L and 3 L rest and act. Stacey at [facility] has been notified and will touch base with her daufgter to verify pt has all o2 needs met.
[2022-07-07] VITALS: PULSE 76
[2022-07-07 04:00] VITALS: PULSE 70
[2022-07-07] MEDS: CENTRAL LINE FLUSH 10 ML IV PUSH (05:33)
[2022-07-07] MEDS: LEVOTHYROXINE SODIUM 125 MCG TABLET PO (05:33)
[2022-07-07 05:53] LABS: Hemoglobin 12.1 g/dL (12.0-15.0); Mean Corpuscular HGB Conc 31.8 g/dl (32-36); Mean Corpuscular Hemoglobin 29.2 pg (26-34); Mean Corpuscular Volume 91.8 fl (80-100); Mean Platelet Volume 9.7 fl (7.4-10.4); Platelet Count Result 236 k/mm3 (150-375); Red Blood Count 4.14 M/mm3 (4.2-5.4); White Blood Count 7.4 K/mm3 (4.5-10.0)
[2022-07-07 05:54] VITALS: BP 111/77; PULSE 71; RESP 20; TEMP 36.7; O2SAT 95
[2022-07-07 06:07] LABS: Anion Gap 0 mmol/L (8-16); Blood Urea Nitrogen 20 mg/dL (7-17); Calcium 8.2 mg/dL (8.4-10.2); Carbon Dioxide 31 mmol/L (22-30); Chloride 98 mmol/L (98-107); Estimated CRCL calculation 37 ml/min; Estimated Glomerular Filt Rate > 60; Glucose 80 mg/dL (65-110); Potassium 4.1 mmol/L (3.4-5.0); Sodium 129 mmol/L (137-145)
[2022-07-07 08:00] VITALS: PULSE 70; PULSE 71; RESP 20; O2SAT 95
--- NOTE | 2022-07-07 08:06 | PM.DS ---
DS: Admitting Diagnosis Discharge Date today Admitting Diagnosis (1) Pneumonia: ?Code(s): J18.9 - Pneumonia, unspecified organism ?Status:?Acute (2) Atrial fibrillation with rapid ventricular response: ?Code(s): I48.91 - Unspecified atrial fibrillation ?Status:?Acute (3) Chronic obstructive pulmonary disease: ?Code(s): J44.9 - Chronic obstructive pulmonary disease, unspecified ?Status:?Acute (4) Acute on chronic respiratory failure with hypoxia and hypercapnia: ?Code(s): J96.21 - Acute and chronic respiratory failure with hypoxia; J96.22 - Acute and chronic respiratory failure with hypercapnia ?Status:?Acute DS: Discharge Diagnosis Discharge Diagnosis (1) Fluid overload: Code(s): E87.70 - Fluid overload, unspecified Status: Acute (2) Hyponatremia: Code(s): E87.1 - Hypo-osmolality and hyponatremia Status: Acute (3) Atrial fibrillation with rapid ventricular response: Code(s): I48.91 - Unspecified atrial fibrillation Status: Acute (4) Chronic obstructive pulmonary disease: Code(s): J44.9 - Chronic obstructive pulmonary disease, unspecified Status: Acute (5) Diastolic dysfunction: Code(s): I51.89 - Other ill-defined heart diseases Status: Acute Plan 87 yo female former smoker with history of NHL and newly detected COPD with evidence of chronic hypoxemic and hypercapnic respiratory failure during a recent hospitalization who presented to the ED from home for evaluation of hypoxia. COPD exacerbation COVID, FLu, RSV was negative. 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 CT scan of the chest shows? resolved ground-glass infiltrates, resolved right pleural effusion, continued patchy confluent infiltrates bilaterally that are improved. 1)Acute on Chronic Resp Failure with Hypoxia and Hypercarbia: C/w O2 support Pulmonary following stop cefepime after total 7 days fluid overload, patient received Lasix 20 mg b.i.d. IV push c/w O2 at home change to lasix 20 mg bid po 2)New Onset Afibb with RVR: Currently on Sotalol c/w Eliquis Currently patient has a sinus rhythm 3)Hyponatremia: Monitor Na resulting from diuretic medications received sodium chloride 2 g b.i.d. p.o. due to lasix follow-up BMP, sodium level improves c/w with sodium chloride 1 g tid. p.o for 10 days s/w PCP in 1 wk. DS: Summary Hospital Course Reason for hospitalization: Short of breath and hypoxemia Hospital Course: This is an 87-year-old female former smoker with history of non-Hodgkin lymphoma, hypothyroidism, and newly detected COPD with evidence of chronic hypoxemic and hypercapnic respiratory failure during a recent hospitalization who presented to the emergency department from home for evaluation of low oxygen levels. Patient provides the following history.? Her daughter Awa provides additional information, with the patient's permission. The patient was diagnosed with non-Hodgkin lymphoma last fall and her lymphadenopathy has reportedly improved quite impressively on Brukinsa. Since she started that drug however her daughter has noticed that the patient seems to be a bit short of breath with activity and her energy has not been what it was previously. The patient is quite stoic and seems to downplay her symptoms however. She was recently admitted to the hospital after she was found to be profoundly hypoxic (SpO2 was reportedly in the 60s) when she presented to her doctor's office on 05/30/2022. She was seen in consultation by Dr. Schulz and Dr. Raymond (pulmonology). Given her longstanding smoking history and evidence of such, it was thought that she was hypoxic due to the COPD and she was started on inhalers and prednisone with plans for further workup
[2022-07-07] MEDS: APIXABAN 2.5 MG TABLET PO (09:07)
[2022-07-07] MEDS: SODIUM CHLORIDE 1 GM TABLET 2 GM PO (09:07)
[2022-07-07 09:50] VITALS: PULSE 71; RESP 18
[2022-07-07] MEDS: UMECLIDINIUM/VILANTEROL 62.5-25 MCG ELLIPTA 1 PUFF INHALATION (09:50)
[2022-07-07 09:52] VITALS: PULSE 71; RESP 18
== END 2022-07-07 11:16 | disposition home health service (06) | DRG 193 ==
LOC: ANHED 13:55 → ANHIMU 06-22 12:19 → ANH2MED 07-05 18:45
PROVIDERS: Family Medicine; Internal Medicine; Internal Medicine Pulmonary Disease; Nurse Practitioner; Physician Assistant; Admitting Provider Hospitalist; Emergency Provider Emergency Medicine; PCP Physician Assistant Medical; Visit Provider Hospitalist
DX: J18.9 Pneumonia, unspecified organism (principal); J96.21 Acute and chronic respiratory failure with hypoxia; J96.22 Acute and chronic respiratory failure with hypercapnia; E87.1 Hypo-osmolality and hyponatremia; I48.91 Unspecified atrial fibrillation; E87.70 Fluid overload, unspecified; I51.89 Other ill-defined heart diseases; J43.2 Centrilobular emphysema; E03.9 Hypothyroidism, unspecified; Z85.72 Personal history of non-Hodgkin lymphomas; Z20.822 Contact with and (suspected) exposure to COVID-19; H35.30 Unspecified macular degeneration; Z87.891 Personal history of nicotine dependence; Z79.899 Other long term (current) drug therapy
CPT/HCPCS: 36415; 36569; 36600; 71045; 71250; 71275; 80048; 80053; 80069; 80202; 81003; 82375; 82565; 82570; 82805; 83050; 83605; 83735; 83880; 84145; 84295; 84300; 84439; 84443; 84480; 84484; 85025; 85027; 85610; 85730; 86140; 87040; 87637; 93005; 93308; 93970; 94002; 94003; 94618; 94640; 94660; 94762; 96365; 96367; 96375; 97110; 97116; 97161; 97165; 97530; 97535; 99285; A9270; C1751; J0282; J0692; J0696; J1650; J1940; J2930; J3370; J3475; J7030; J7512; Q9967; U0003; U0005

== ENCOUNTER 2022-07-12 15:16 | Outpatient (CLI) | payer MEDICARE, SELFPAY ==
[2022-07-12 15:35] LABS: Basophils Absolute Auto 0.1 K/mm3 (0.0-0.1); Basophils Percent Auto 1.4 % (0.2-1.2); Eosinophils Absolute Auto 0.2 K/mm3 (0-0.3); Eosinophils Percent Auto 2.6 % (0-4.4); Hematocrit 40.8 % (37.0-47.0); Hemoglobin 12.8 g/dL (12.0-15.0); Immature Granulocyte Absolute 0.07 K/mm3 (0.00-0.031); Immature Granulocyte Percent A 1.1 % (0-0.5); Lymphocytes Absolute Auto 1.49 K/mm3 (0.9-3.2); Lymphocytes Percent Auto 23.8 % (18.3-44.2); Mean Corpuscular HGB Conc 31.4 g/dl (32-36); Mean Corpuscular Hemoglobin 28.6 pg (26-34); Mean Corpuscular Volume 91.3 fl (80-100); Mean Platelet Volume 9.6 fl (7.4-10.4); Monocytes Absolute Auto 0.5 K/mm3 (0.1-0.6); Monocytes Percent Auto 7.4 % (2.6-8.5); Neutrophils Percent Auto 63.7 % (45.5-73.1); Platelet Count Result 268 k/mm3 (150-375); Red Blood Count 4.47 M/mm3 (4.2-5.4); Red Cell Distribution Width 17.7 % (11.5-14.5); White Blood Count 6.3 K/mm3 (4.5-10.0)
[2022-07-12 15:41] LABS: Blood Urea Nitrogen 25 mg/dL (8-26); Carbon Dioxide 34 mmol/L (22-30); Chloride 99 mmol/L (98-109); Estimated Glomerular Filt Rate 60; Glucose 94 mg/dL (70-105); Ionized Calcium (POC) 1.03 mmol/L (1.11-1.31); Potassium 4.6 mmol/L (3.5-4.9); Sodium 138 mmol/L (138-146)
[2022-07-13 10:20] LABS: Immunoglobulin A 105 mg/dL (70-400); Immunoglobulin G 509 mg/dL (700-1600); Immunoglobulin M 50 mg/dL (40-230)
== END 2022-07-12 15:17 | disposition home or self-care (01) ==
LOC: ANHLAB 15:17
PROVIDERS: PCP Physician Assistant Medical; Visit Provider Internal Medicine Hematology & Oncology
DX: C85.98 Non-Hodgkin lymphoma, unspecified, lymph nodes of multiple sites (principal)
CPT/HCPCS: 36415; 80047; 82784; 85025

== ENCOUNTER 2022-08-31 10:15 | Outpatient (CLI) | payer MEDICARE, SELFPAY ==
[2022-08-31 10:29] LABS: Basophils Absolute Auto 0.1 K/mm3 (0.0-0.1); Basophils Percent Auto 0.8 % (0.2-1.2); Eosinophils Absolute Auto 0.7 K/mm3 (0-0.3); Eosinophils Percent Auto 7.1 % (0-4.4); Hematocrit 38.5 % (37.0-47.0); Hemoglobin 11.8 g/dL (12.0-15.0); Immature Granulocyte Absolute 0.06 K/mm3 (0.00-0.031); Immature Granulocyte Percent A 0.6 % (0-0.5); Lymphocytes Absolute Auto 1.69 K/mm3 (0.9-3.2); Lymphocytes Percent Auto 17.8 % (18.3-44.2); Mean Corpuscular HGB Conc 30.6 g/dl (32-36); Mean Corpuscular Hemoglobin 28.4 pg (26-34); Mean Corpuscular Volume 92.5 fl (80-100); Mean Platelet Volume 9.1 fl (7.4-10.4); Monocytes Absolute Auto 1.4 K/mm3 (0.1-0.6); Monocytes Percent Auto 14.6 % (2.6-8.5); Neutrophils Absolute Auto 5.6 K/mm3 (1.3-6.7); Neutrophils Percent Auto 59.1 % (45.5-73.1); Platelet Count Result 464 k/mm3 (150-375); Red Blood Count 4.16 M/mm3 (4.2-5.4); Red Cell Distribution Width 18.1 % (11.5-14.5); White Blood Count 9.5 K/mm3 (4.5-10.0)
[2022-08-31 10:34] LABS: Blood Urea Nitrogen 19 mg/dL (8-26); Carbon Dioxide 33 mmol/L (22-30); Chloride 101 mmol/L (98-109); Estimated Glomerular Filt Rate 47; Glucose 82 mg/dL (70-105); Ionized Calcium (POC) 1.22 mmol/L (1.11-1.31); Potassium 4.7 mmol/L (3.5-4.9); Sodium 141 mmol/L (138-146)
[2022-08-31 12:05] LABS: Alanine Aminotransferase 25 U/L (6-35); Albumin Level 3.9 g/dL (3.5-5.1); Alkaline Phosphatase 71 U/L (38-126); Anion Gap 3 mmol/L (8-16); Aspartate Amino Transferase 26 U/L (14-36); Bilirubin,Total 0.5 mg/dL (0.2-1.3); Blood Urea Nitrogen 20 mg/dL (7-17); Carbon Dioxide 33 mmol/L (22-30); Chloride 102 mmol/L (98-107); Estimated Glomerular Filt Rate 60; Glucose 80 mg/dL (65-110); Potassium 4.8 mmol/L (3.4-5.0); Sodium 138 mmol/L (137-145)
[2022-08-31 12:09] LABS: Immunoglobulin A 103 mg/dL (70-400); Immunoglobulin G 614 mg/dL (700-1600); Immunoglobulin M 51 mg/dL (40-230)
== END 2022-08-31 10:16 | disposition home or self-care (01) ==
LOC: ANHLAB 10:17
PROVIDERS: PCP Physician Assistant Medical; Visit Provider Internal Medicine Hematology & Oncology
DX: C83.00 Small cell B-cell lymphoma, unspecified site (principal); D80.1 Nonfamilial hypogammaglobulinemia
CPT/HCPCS: 36415; 80047; 80053; 82784; 85025

== ENCOUNTER 2022-11-02 10:29 | Outpatient (CLI) | payer MEDICARE, SELFPAY ==
[2022-11-02 10:39] LABS: Basophils Absolute Auto 0.1 K/mm3 (0.0-0.1); Basophils Percent Auto 1.3 % (0.2-1.2); Eosinophils Absolute Auto 0.3 K/mm3 (0-0.3); Eosinophils Percent Auto 3.7 % (0-4.4); Hematocrit 40.7 % (37.0-47.0); Hemoglobin 12.8 g/dL (12.0-15.0); Immature Granulocyte Absolute 0.04 K/mm3 (0.00-0.031); Immature Granulocyte Percent A 0.6 % (0-0.5); Lymphocytes Percent Auto 31.3 % (18.3-44.2); Mean Corpuscular HGB Conc 31.4 g/dl (32-36); Mean Corpuscular Hemoglobin 29.8 pg (26-34); Mean Corpuscular Volume 94.7 fl (80-100); Mean Platelet Volume 9.3 fl (7.4-10.4); Monocytes Absolute Auto 1.2 K/mm3 (0.1-0.6); Monocytes Percent Auto 17.3 % (2.6-8.5); Neutrophils Absolute Auto 3.2 K/mm3 (1.3-6.7); Neutrophils Percent Auto 45.8 % (45.5-73.1); Platelet Count Result 367 k/mm3 (150-375); Red Cell Distribution Width 15.6 % (11.5-14.5)
[2022-11-02 10:42] LABS: Blood Urea Nitrogen 19 mg/dL (8-26); Carbon Dioxide 27 mmol/L (22-30); Chloride 103 mmol/L (98-109); Estimated Glomerular Filt Rate 53; Glucose 82 mg/dL (70-105); Ionized Calcium (POC) 1.16 mmol/L (1.11-1.31); Potassium 4.1 mmol/L (3.5-4.9); Sodium 141 mmol/L (138-146)
[2022-11-02 11:22] LABS: Lactate Dehydrogenase 177 U/L (120-246)
== END 2022-11-02 10:30 | disposition home or self-care (01) ==
LOC: ANHLAB 10:31
PROVIDERS: PCP Physician Assistant Medical; Visit Provider Internal Medicine Hematology & Oncology
DX: C85.98 Non-Hodgkin lymphoma, unspecified, lymph nodes of multiple sites (principal)
CPT/HCPCS: 36415; 80047; 83615; 85025

== ENCOUNTER 2023-01-08 15:01 | Outpatient (CLI) | payer MEDICARE, SELFPAY ==
--- NOTE | ~2023-01-08 | XR_ITS ---
EXAMINATION: XR lumbar spine 2-3V DATE: 01/08/2023 15:33 INDICATION: Low back pain TECHNIQUE: Anteroposterior and lateral views of the lumbar spine, and cone-down lateral view of the l umbosacral junction were obtained. COMPARISON: CT, 02/08/2022 FINDINGS: There are 3 mm of stable anterolisthesis of L4 on L5. There is moderate loss of interverteb ral disc space height at L4-5 and L5-S1. There is a new superior endplate deformity of L3. There is m oderate to severe facet joint osteoarthritis of the lower lumbar spine. Orthopedic fixation is noted in the left femoral neck. A T12 compression fracture is also noted. IMPRESSION: 1. Age indeterminate compression fractures of T12 and L3, new since the comparison examination. 2. Moderate to severe lumbar spondylosis. Reviewed, dictated and finalized at location B. IMPRESSION: 1. Age indeterminate compression fractures of T12 and L3, new since the compari son examination. 2. Moderate to severe lumbar spondylosis.
--- NOTE | ~2023-01-08 | XR_ITS ---
EXAMINATION: XR thoracic spine 3V DATE: 01/08/2023 15:33 INDICATION: Back pain TECHNIQUE: AP, lateral and lateral swimmer's views of the thoracic spine were obtained. COMPARISON: CT, 06/25/2022 FINDINGS: There are compression fractures of T5, T9, and T12 which are new since the comparison exami nation. There is an unchanged compression fracture of T4. Bone alignment is normal. There is mild los s of intervertebral disc space height at multiple levels in the thoracic spine. IMPRESSION: 1. New compression fractures of T5, T9, and T12. Reviewed, dictated and finalized at location B.
== END 2023-01-08 15:02 | disposition home or self-care (01) ==
PROVIDERS: PCP Physician Assistant Medical; Visit Provider Physician Assistant Medical
DX: M47.896 Other spondylosis, lumbar region (principal); S22.050A Wedge compression fracture of T5-T6 vertebra, initial encounter for closed fracture; S22.070A Wedge compression fracture of T9-T10 vertebra, initial encounter for closed fracture; S22.080A Wedge compression fracture of T11-T12 vertebra, initial encounter for closed fracture; X58.XXXA Exposure to other specified factors, initial encounter
CPT/HCPCS: 72072; 72100

== ENCOUNTER 2023-01-14 13:37 | Outpatient (CLI) | payer MEDICARE, SELFPAY ==
[2023-01-14 13:53] LABS: Basophils Absolute Auto 0.1 K/mm3 (0.0-0.1); Basophils Percent Auto 1.1 % (0.2-1.2); Eosinophils Absolute Auto 0.3 K/mm3 (0-0.3); Eosinophils Percent Auto 4.2 % (0-4.4); Hematocrit 43.6 % (37.0-47.0); Hemoglobin 14.3 g/dL (12.0-15.0); Immature Granulocyte Absolute 0.05 K/mm3 (0.00-0.031); Immature Granulocyte Percent A 0.6 % (0-0.5); Lymphocytes Percent Auto 19.9 % (18.3-44.2); Mean Corpuscular HGB Conc 32.8 g/dl (32-36); Mean Corpuscular Hemoglobin 29.7 pg (26-34); Mean Corpuscular Volume 90.6 fl (80-100); Mean Platelet Volume 9.4 fl (7.4-10.4); Monocytes Percent Auto 12.9 % (2.6-8.5); Neutrophils Absolute Auto 4.9 K/mm3 (1.3-6.7); Neutrophils Percent Auto 61.3 % (45.5-73.1); Platelet Count Result 449 k/mm3 (150-375); Red Blood Count 4.81 M/mm3 (4.2-5.4); Red Cell Distribution Width 14.8 % (11.5-14.5); White Blood Count 8.1 K/mm3 (4.5-10.0)
[2023-01-14 13:59] LABS: Blood Urea Nitrogen 19 mg/dL (8-26); Carbon Dioxide 27 mmol/L (22-30); Chloride 101 mmol/L (98-109); Estimated Glomerular Filt Rate 43; Glucose 95 mg/dL (70-105); Potassium 3.9 mmol/L (3.5-4.9); Sodium 140 mmol/L (138-146)
== END 2023-01-14 13:38 | disposition home or self-care (01) ==
LOC: ANHLAB 13:40
PROVIDERS: PCP Physician Assistant Medical; Visit Provider Internal Medicine Hematology & Oncology
DX: C83.00 Small cell B-cell lymphoma, unspecified site (principal)
CPT/HCPCS: 36415; 80047; 85025

== ENCOUNTER 2023-01-21 14:23 | Outpatient (CLI) | payer MEDICARE, SELFPAY ==
--- NOTE | ~2023-01-21 | MR_ITS ---
EXAMINATION: MR lumbar spine wo con DATE: 01/21/2023 16:05 INDICATION: New compression fracture of L3. TECHNIQUE: Magnetic resonance imaging (MRI) of the lumbar spine was performed without intravenous con trast. Sequences included sagittal T2-weighted FSE, sagittal T2-weighted FS FSE, sagittal T1-weighted FSE, and axial T2-weighted FSE. COMPARISON: Lumbar spine radiographs 01/08/2023 FINDINGS: There is 6 mm anterolisthesis of L4 on L5. There is a chronic compression fracture of L1. T here is a burst fracture of L2 superior endplate with less than 1/5 loss of height and edema-like mar row signal intensity. There is a compression fracture of L3 with 1/5 loss of height and edema-like ma rrow signal intensity in the superior endplate. There is mildly decreased disc height at L3-L4, sever veto decreased disc height at L4-L5, and moderately decreased disc height at L5-S1. The distal spinal cord signal intensity is normal. The conus medullaris is at L2. The following disc levels are specifi leticia discussed: L1-L2: The disc is bulging. There is mild right facet joint osteoarthritis. There is mild bilateral n eural foraminal stenosis. There is mild central canal stenosis. L2-L3: The disc is bulging. There is mild lateral facet joint osteoarthritis. There is mild bilateral neural foraminal stenosis. There is mild central canal stenosis. L3-L4: The disc is bulging. There is moderate right and mild left facet joint osteoarthritis. There i s mild bilateral neural foraminal stenosis. There is mild central canal stenosis. L4-L5: The disc is bulging and has an annular fissure. There is severe bilateral facet joint osteoart hritis. There is moderate right and mild left neural foraminal stenosis. There is mild central canal stenosis. L5-S1: The disc is bulging. There is severe bilateral facet joint osteoarthritis. There is mild bilat eral neural foraminal stenosis. There is no central canal stenosis. IMPRESSION: 1. Subacute burst fractures of L2 and L3, stable from 01/08/23. 2. Severe lumbar spondylosis. Reviewed, dictated and finalized at location E.
--- NOTE | ~2023-01-21 | MR_ITS ---
EXAMINATION: MR thoracic spine wo con DATE: 01/21/2023 16:05 INDICATION: New thoracic compression fractures. TECHNIQUE: Magnetic resonance imaging (MRI) of the thoracic spine was performed without intravenous c ontrast. COMPARISON: Thoracic spine radiographs 02/07/2023, chest CT 07/03/2022 FINDINGS: There is 3 degrees levocurvature of cervicothoracic spine. There is kyphosis of thoracic sp ine. There is chronic height loss of T4 vertebral body. There is a compression fracture of T5 with 1/ 5 loss of height and edema-like marrow signal intensity involving the superior endplate. There are bu rst fractures of T8 and T9 with 1/5 and 2/5 loss of height respectively and edema-like marrow signal intensity. There is a compression fracture of superior endplate of T12 with 1/5 loss of height and ed jatin-like marrow signal intensity. There is an old compression fracture of L1. There is a burst fractu re of superior endplate of L2 with less than 1/5 loss of height and edema-like marrow signal intensit y. There is severely decreased disc height at T5-T6 and T6-T7. There is multilevel facet joint osteoa rthritis, severe at multiple levels. There is multilevel mild neural foraminal stenosis bilaterally. On the right, there is moderate neural foraminal stenosis at T2-T3. On the left, there is moderate ne ural foraminal stenosis at T9-T10. The discs are bulging at T2-T3, T4-T5, T5-T6, and T6-T7 with mild central canal stenosis. The spinal cord signal intensity is normal. IMPRESSION: 1. Acute/subacute fractures of T5, T8, T9, T12, and L2. 2. Moderate thoracic spondylosis. Reviewed, dictated and finalized at location E.
== END 2023-01-21 14:24 | disposition home or self-care (01) ==
PROVIDERS: PCP Physician Assistant Medical; Visit Provider Physician Assistant Medical
DX: M47.896 Other spondylosis, lumbar region (principal); S22.059D Unspecified fracture of T5-T6 vertebra, subsequent encounter for fracture with routine healing; S22.069D Unspecified fracture of T7-T8 vertebra, subsequent encounter for fracture with routine healing; S22.079D Unspecified fracture of T9-T10 vertebra, subsequent encounter for fracture with routine healing; S22.089D Unspecified fracture of T11-T12 vertebra, subsequent encounter for fracture with routine healing; S32.029D Unspecified fracture of second lumbar vertebra, subsequent encounter for fracture with routine healing; X58.XXXD Exposure to other specified factors, subsequent encounter; M47.894 Other spondylosis, thoracic region
CPT/HCPCS: 72146; 72148

== ENCOUNTER 2023-04-09 12:12 | Outpatient (CLI) | payer MEDICARE, SELFPAY ==
[2023-04-09 12:28] LABS: Basophils Absolute Auto 0.1 K/mm3 (0.0-0.1); Basophils Percent Auto 0.8 % (0.2-1.2); Eosinophils Absolute Auto 0.2 K/mm3 (0-0.3); Eosinophils Percent Auto 1.7 % (0-4.4); Hematocrit 48.4 % (37.0-47.0); Hemoglobin 15.1 g/dL (12.0-15.0); Immature Granulocyte Absolute 0.07 K/mm3 (0.00-0.031); Immature Granulocyte Percent A 0.6 % (0-0.5); Lymphocytes Absolute Auto 3.36 K/mm3 (0.9-3.2); Lymphocytes Percent Auto 28.7 % (18.3-44.2); Mean Corpuscular HGB Conc 31.2 g/dl (32-36); Mean Corpuscular Hemoglobin 29.4 pg (26-34); Mean Corpuscular Volume 94.3 fl (80-100); Mean Platelet Volume 9.6 fl (7.4-10.4); Monocytes Absolute Auto 1.5 K/mm3 (0.1-0.6); Monocytes Percent Auto 12.6 % (2.6-8.5); Neutrophils Absolute Auto 6.5 K/mm3 (1.3-6.7); Neutrophils Percent Auto 55.6 % (45.5-73.1); Platelet Count Result 508 k/mm3 (150-375); Red Blood Count 5.13 M/mm3 (4.2-5.4); Red Cell Distribution Width 15.3 % (11.5-14.5); White Blood Count 11.7 K/mm3 (4.5-10.0)
[2023-04-09 13:52] LABS: Alanine Aminotransferase 15 U/L (6-35); Albumin Level 4.2 g/dL (3.5-5.1); Alkaline Phosphatase 70 U/L (38-126); Anion Gap 10 mmol/L (8-16); Aspartate Amino Transferase 23 U/L (14-36); Bilirubin,Total 0.5 mg/dL (0.2-1.3); Blood Urea Nitrogen 16 mg/dL (7-17); Calcium 9.9 mg/dL (8.4-10.2); Carbon Dioxide 29 mmol/L (22-30); Chloride 103 mmol/L (98-107); Estimated Glomerular Filt Rate 43; Glucose 95 mg/dL (65-110); Lactate Dehydrogenase 195 U/L (120-246); Potassium 4.1 mmol/L (3.4-5.0); Sodium 142 mmol/L (137-145)
== END 2023-04-09 12:13 | disposition home or self-care (01) ==
LOC: ANHLAB 12:17
PROVIDERS: PCP Family Medicine; Visit Provider Internal Medicine Hematology & Oncology
DX: C83.00 Small cell B-cell lymphoma, unspecified site (principal)
CPT/HCPCS: 36415; 80053; 83615; 85025

== ENCOUNTER 2023-06-07 13:31 | Outpatient (CLI) | payer MEDICARE, SELFPAY ==
--- NOTE | ~2023-06-07 | DEXA_ITS ---
Bone Density Report Name: NOEMY DAWN I Age: 88 Sex: Female Ethnicity: White Date of : 1935 Indication: postmenopausal; screening for osteoporosis; height loss; Referring Provider: SHILPA ESPINOZA I. Study: Bone densitometry was performed. Exam Date: June 07, 2023 Accession number: [id number] Bone Density: Region BMD T-score Z-score Classification AP Spine(L1-L4) 0.917 -1.2 1.7 Osteopenia Femoral Neck (Right) 0.615 -2.1 0.4 Osteopenia Total Hip (Right) 0.810 -1.1 1.3 Osteopenia World Health Organization criteria for BMD impression classify patients as: Normal (T-score at or above -1.0), Osteopenia (T-score between -1.0 and -2.5), or Osteoporosis (T-score at or below -2.5). 10-year Fracture Risk(1): Major Osteoporotic Fracture 16% Hip Fracture 5.0% Reported Risk Factors: [place] (), Neck BMD=0.615, BMI=25.4 (1) FRAX(R) Version 3.08. Fracture probability calculated for an untreated patient. Fracture probability may be lower if the patient has received treatment. Clinical Information Provided by Patient: Has used the following medications: Vitamin D Patient maximum height was 63 No regular weight bearing exercise Drinks caffeinated beverages Onset of menses at age 17 Number of children 4 Impression: The patient has low bone mass, based on the Right Femoral Neck T-score. The patient has an estimated ten-year risk of hip fracture of 5% and an estimated ten-year risk of major fracture of 16%, based on the WHO FRAX algorithm. Discussion: BONE DENSITY IS LOW AT ONE OR MORE SKELETAL SITES. THE PATIENT'S BMD AND CLINICAL RISK FACTORS CONTRIBUTE TO THIS PATIENT'S INCREASED RISK OF FRACTURE. This patient's lowest T-score is low at one or more skeletal sites. It meets the World Health Organization's (WHO) criteria for ?low bone mass? (T-score between -1.0 and -2.5). The patient's 10-year risk of hip fracture as calculated by FRAX exceeds the threshold where pharmacological therapy is recommended by the National Osteoporosis Foundation (NOF). However, all treatment decisions require clinical judgment and consideration of individual patient factors, including patient preferences, comorbidities, previous drug use, risk factors not captured in the FRAX model (e.g., frailty, falls, vitamin D deficiency, increased bone turnover, interval significant decline in bone density) and possible under or overestimation of fracture risk by FRAX. The patient should follow a healthful lifestyle (good nutrition with adequate calcium and vitamin D, and appropriate weight-bearing exercise). Follow-Up: Consider a repeat BMD and Vertebral Fracture Assessment (VFA) exam in 2 years or sooner if medically necessary, to reassess this patient's status. Reported by: MARIAJOSE on 06/07/2023 2:07:00 PM.
== END 2023-06-07 13:32 | disposition home or self-care (01) ==
LOC: ANHIMG 13:32
PROVIDERS: PCP Family Medicine; Visit Provider Physician Assistant Medical
DX: S22.000A Wedge compression fracture of unspecified thoracic vertebra, initial encounter for closed fracture (principal); S22.001A Stable burst fracture of unspecified thoracic vertebra, initial encounter for closed fracture; S32.000A Wedge compression fracture of unspecified lumbar vertebra, initial encounter for closed fracture; X58.XXXA Exposure to other specified factors, initial encounter; M85.88 Other specified disorders of bone density and structure, other site; M85.851 Other specified disorders of bone density and structure, right thigh
CPT/HCPCS: 77080

== ENCOUNTER 2023-07-10 11:58 | Outpatient (CLI) | payer MEDICARE, SELFPAY ==
[2023-07-10 12:27] LABS: Basophils Absolute Auto 0.1 K/mm3 (0.0-0.1); Basophils Percent Auto 0.9 % (0.2-1.2); Eosinophils Absolute Auto 0.2 K/mm3 (0-0.3); Hematocrit 42.9 % (37.0-47.0); Hemoglobin 13.7 g/dL (12.0-15.0); Immature Granulocyte Absolute 0.03 K/mm3 (0.00-0.031); Immature Granulocyte Percent A 0.4 % (0-0.5); Lymphocytes Absolute Auto 1.99 K/mm3 (0.9-3.2); Lymphocytes Percent Auto 25.4 % (18.3-44.2); Mean Corpuscular HGB Conc 31.9 g/dl (32-36); Mean Corpuscular Hemoglobin 29.6 pg (26-34); Mean Corpuscular Volume 92.7 fl (80-100); Mean Platelet Volume 9.5 fl (7.4-10.4); Monocytes Absolute Auto 0.9 K/mm3 (0.1-0.6); Monocytes Percent Auto 11.1 % (2.6-8.5); Neutrophils Absolute Auto 4.7 K/mm3 (1.3-6.7); Neutrophils Percent Auto 60.2 % (45.5-73.1); Platelet Count Result 379 k/mm3 (150-375); Red Blood Count 4.63 M/mm3 (4.2-5.4); White Blood Count 7.8 K/mm3 (4.5-10.0)
[2023-07-10 12:32] LABS: Blood Urea Nitrogen 11 mg/dL (8-26); Carbon Dioxide 32 mmol/L (22-30); Chloride 100 mmol/L (98-109); Estimated Glomerular Filt Rate 53; Glucose 116 mg/dL (70-105); Ionized Calcium (POC) 1.27 mmol/L (1.11-1.31); Potassium 3.8 mmol/L (3.5-4.9); Sodium 142 mmol/L (138-146)
[2023-07-10 16:31] LABS: Alanine Aminotransferase 15 U/L (6-35); Albumin Level 4.1 g/dL (3.5-5.1); Alkaline Phosphatase 61 U/L (38-126); Anion Gap 6 mmol/L (8-16); Aspartate Amino Transferase 21 U/L (14-36); Bilirubin,Total 0.6 mg/dL (0.2-1.3); Blood Urea Nitrogen 12 mg/dL (7-17); Calcium 9.6 mg/dL (8.4-10.2); Carbon Dioxide 30 mmol/L (22-30); Chloride 103 mmol/L (98-107); Estimated Glomerular Filt Rate 59; Glucose 113 mg/dL (65-110); Potassium 3.8 mmol/L (3.4-5.0); Sodium 139 mmol/L (137-145)
== END 2023-07-10 11:59 | disposition home or self-care (01) ==
PROVIDERS: PCP Family Medicine; Visit Provider Internal Medicine Hematology & Oncology
DX: C83.00 Small cell B-cell lymphoma, unspecified site (principal)
CPT/HCPCS: 36415; 80047; 80053; 85025

== ENCOUNTER 2023-10-23 11:24 | Outpatient (CLI) | payer MEDICARE, SELFPAY ==
[2023-10-23 11:45] LABS: Basophils Absolute Auto 0.1 K/mm3 (0.0-0.1); Basophils Percent Auto 0.6 % (0.2-1.2); Eosinophils Absolute Auto 0.3 K/mm3 (0-0.3); Eosinophils Percent Auto 3.9 % (0-4.4); Hematocrit 42.7 % (37.0-47.0); Hemoglobin 13.6 g/dL (12.0-15.0); Immature Granulocyte Absolute 0.04 K/mm3 (0.00-0.031); Immature Granulocyte Percent A 0.5 % (0-0.5); Lymphocytes Absolute Auto 2.63 K/mm3 (0.9-3.2); Lymphocytes Percent Auto 31.4 % (18.3-44.2); Mean Corpuscular HGB Conc 31.9 g/dl (32-36); Mean Corpuscular Hemoglobin 29.4 pg (26-34); Mean Corpuscular Volume 92.4 fl (80-100); Mean Platelet Volume 9.3 fl (7.4-10.4); Monocytes Absolute Auto 1.4 K/mm3 (0.1-0.6); Monocytes Percent Auto 16.7 % (2.6-8.5); Neutrophils Absolute Auto 3.9 K/mm3 (1.3-6.7); Neutrophils Percent Auto 46.9 % (45.5-73.1); Platelet Count Result 393 k/mm3 (150-375); Red Blood Count 4.62 M/mm3 (4.2-5.4); Red Cell Distribution Width 14.6 % (11.5-14.5); White Blood Count 8.4 K/mm3 (4.5-10.0)
[2023-10-23 11:54] LABS: Blood Urea Nitrogen 9 mg/dL (8-26); Carbon Dioxide 31 mmol/L (22-30); Chloride 102 mmol/L (98-109); Estimated Glomerular Filt Rate 53; Glucose 95 mg/dL (70-105); Ionized Calcium (POC) 1.16 mmol/L (1.11-1.31); Potassium 3.8 mmol/L (3.5-4.9); Sodium 140 mmol/L (138-146)
== END 2023-10-23 11:25 | disposition home or self-care (01) ==
LOC: ANHLAB 11:26
PROVIDERS: PCP Family Medicine; Visit Provider Nurse Practitioner Family
DX: C83.00 Small cell B-cell lymphoma, unspecified site (principal)
CPT/HCPCS: 36415; 80047; 85025

== ENCOUNTER 2024-02-24 11:45 | Outpatient (CLI) | payer MEDICARE, SELFPAY ==
[2024-02-24 12:14] LABS: Basophils Absolute Auto 0.1 K/mm3 (0.0-0.1); Basophils Percent Auto 0.9 % (0.2-1.2); Eosinophils Absolute Auto 0.2 K/mm3 (0-0.3); Eosinophils Percent Auto 3.1 % (0-4.4); Hematocrit 43.9 % (37.0-47.0); Hemoglobin 13.9 g/dL (12.0-15.0); Immature Granulocyte Absolute 0.03 K/mm3 (0.00-0.031); Immature Granulocyte Percent A 0.4 % (0-0.5); Lymphocytes Absolute Auto 2.53 K/mm3 (0.9-3.2); Lymphocytes Percent Auto 32.3 % (18.3-44.2); Mean Corpuscular HGB Conc 31.7 g/dl (32-36); Mean Corpuscular Hemoglobin 28.9 pg (26-34); Mean Corpuscular Volume 91.3 fl (80-100); Mean Platelet Volume 9.7 fl (7.4-10.4); Monocytes Absolute Auto 0.7 K/mm3 (0.1-0.6); Monocytes Percent Auto 8.8 % (2.6-8.5); Neutrophils Absolute Auto 4.3 K/mm3 (1.3-6.7); Neutrophils Percent Auto 54.5 % (45.5-73.1); Platelet Count Result 334 k/mm3 (150-375); Red Blood Count 4.81 M/mm3 (4.2-5.4); Red Cell Distribution Width 15.1 % (11.5-14.5); White Blood Count 7.8 K/mm3 (4.5-10.0)
[2024-02-24 13:04] LABS: Anion Gap 5 mmol/L (4-12); Blood Urea Nitrogen 14 mg/dL (7-17); Calcium 9.2 mg/dL (8.4-10.2); Carbon Dioxide 31 mmol/L (22-30); Chloride 102 mmol/L (98-107); Estimated Glomerular Filt Rate 53; Glucose 120 mg/dL (65-110); Potassium 3.9 mmol/L (3.4-5.0); Sodium 138 mmol/L (137-145)
[2024-02-24 13:09] LABS: Immunoglobulin A 100 mg/dL (70-400); Immunoglobulin G 601 mg/dL (700-1600); Immunoglobulin M 53 mg/dL (40-230)
== END 2024-02-24 11:46 | disposition home or self-care (01) ==
LOC: ANHLAB 11:51
PROVIDERS: Nurse Practitioner Family; PCP Physician Assistant Medical; Visit Provider Internal Medicine Hematology & Oncology
DX: C83.00 Small cell B-cell lymphoma, unspecified site (principal); D80.1 Nonfamilial hypogammaglobulinemia
CPT/HCPCS: 36415; 80048; 82784; 85025

== ENCOUNTER 2024-07-03 09:59 | Outpatient (CLI) | payer MEDICARE, SELFPAY ==
[2024-07-03 10:13] LABS: Basophils Absolute Auto 0.1 K/mm3 (0.0-0.1); Eosinophils Absolute Auto 0.3 K/mm3 (0-0.3); Hematocrit 42.8 % (37.0-47.0); Hemoglobin 13.7 g/dL (12.0-15.0); Immature Granulocyte Absolute 0.04 K/mm3 (0.00-0.031); Immature Granulocyte Percent A 0.5 % (0-0.5); Lymphocytes Absolute Auto 2.48 K/mm3 (0.9-3.2); Lymphocytes Percent Auto 31.2 % (18.3-44.2); Mean Corpuscular Hemoglobin 29.7 pg (26-34); Mean Corpuscular Volume 92.6 fl (80-100); Mean Platelet Volume 9.5 fl (7.4-10.4); Monocytes Absolute Auto 1.1 K/mm3 (0.1-0.6); Monocytes Percent Auto 13.3 % (2.6-8.5); Platelet Count Result 358 k/mm3 (150-375); Red Blood Count 4.62 M/mm3 (4.2-5.4); Red Cell Distribution Width 15.1 % (11.5-14.5)
[2024-07-03 10:16] LABS: Blood Urea Nitrogen 11 mg/dL (8-26); Carbon Dioxide 29 mmol/L (22-30); Chloride 103 mmol/L (98-109); Estimated Glomerular Filt Rate 42; Glucose 67 mg/dL (70-105); Ionized Calcium (POC) 1.23 mmol/L (1.11-1.31); Potassium 3.6 mmol/L (3.5-4.9); Sodium 142 mmol/L (138-146)
[2024-07-03 11:40] LABS: Alanine Aminotransferase 15 U/L (6-35); Albumin Level 3.9 g/dL (3.5-5.1); Alkaline Phosphatase 67 U/L (38-126); Anion Gap 8 mmol/L (4-12); Aspartate Amino Transferase 22 U/L (14-36); Bilirubin,Total 0.7 mg/dL (0.2-1.3); Blood Urea Nitrogen 13 mg/dL (7-17); Carbon Dioxide 29 mmol/L (22-30); Chloride 104 mmol/L (98-107); Estimated Glomerular Filt Rate 50; Glucose 66 mg/dL (65-110); Potassium 3.7 mmol/L (3.4-5.0); Sodium 141 mmol/L (137-145)
== END 2024-07-03 10:00 | disposition home or self-care (01) ==
LOC: ANHLAB 10:00
PROVIDERS: PCP Physician Assistant Medical; Visit Provider Internal Medicine Hematology & Oncology
DX: C83.00 Small cell B-cell lymphoma, unspecified site (principal)
CPT/HCPCS: 36415; 80047; 80053; 85025

== ENCOUNTER 2024-11-02 10:24 | Outpatient (CLI) | payer MEDICARE, SELFPAY ==
[2024-11-02 10:38] LABS: Basophils Absolute Auto 0.1 K/mm3 (0.0-0.1); Basophils Percent Auto 0.8 % (0.2-1.2); Eosinophils Absolute Auto 0.2 K/mm3 (0-0.3); Eosinophils Percent Auto 3.2 % (0-4.4); Hemoglobin 13.6 g/dL (12.0-15.0); Immature Granulocyte Absolute 0.02 K/mm3 (0.00-0.031); Immature Granulocyte Percent A 0.3 % (0-0.5); Lymphocytes Percent Auto 27.8 % (18.3-44.2); Mean Corpuscular HGB Conc 31.6 g/dl (32-36); Mean Corpuscular Hemoglobin 29.6 pg (26-34); Mean Corpuscular Volume 93.7 fl (80-100); Mean Platelet Volume 9.9 fl (7.4-10.4); Monocytes Percent Auto 13.9 % (2.6-8.5); Neutrophils Absolute Auto 3.9 K/mm3 (1.3-6.7); Platelet Count Result 323 k/mm3 (150-375); Red Blood Count 4.59 M/mm3 (4.2-5.4); Red Cell Distribution Width 14.6 % (11.5-14.5); White Blood Count 7.2 K/mm3 (4.5-10.0)
[2024-11-02 10:42] LABS: Blood Urea Nitrogen 12 mg/dL (8-26); Carbon Dioxide 27 mmol/L (22-30); Chloride 101 mmol/L (98-109); Estimated Glomerular Filt Rate 39; Glucose 87 mg/dL (70-105); Ionized Calcium (POC) 1.13 mmol/L (1.11-1.31); Potassium 3.7 mmol/L (3.5-4.9); Sodium 141 mmol/L (138-146)
[2024-11-02 11:23] LABS: Alanine Aminotransferase 12 U/L (6-35); Albumin Level 3.8 g/dL (3.5-5.1); Alkaline Phosphatase 55 U/L (38-126); Anion Gap 8 mmol/L (4-12); Aspartate Amino Transferase 30 U/L (14-36); Bilirubin,Total 0.7 mg/dL (0.2-1.3); Blood Urea Nitrogen 13 mg/dL (7-17); Carbon Dioxide 27 mmol/L (22-30); Chloride 105 mmol/L (98-107); Estimated Glomerular Filt Rate 44; Glucose 89 mg/dL (65-110); Potassium 3.8 mmol/L (3.4-5.0); Sodium 140 mmol/L (137-145); Total Protein 6.4 g/dL (6.3-8.2)
== END 2024-11-02 10:25 | disposition home or self-care (01) ==
PROVIDERS: PCP Physician Assistant Medical; Visit Provider Internal Medicine Hematology & Oncology
DX: C83.00 Small cell B-cell lymphoma, unspecified site (principal)
CPT/HCPCS: 36415; 80047; 80053; 85025